=== PATIENT | male | born 1960 | race Two or more races ===

== ENCOUNTER → 2024-02-28 | Outpatient (CLI) | payer MEDICAID, SELFPAY ==
--- NOTE | 2024-02-28 13:30 | XR_ITS ---
Examination: IR fluoroscopically Port-A-Cath check Fluoroscopy AP left chest single view Exam date and time: February 28, 2024 1515 hours INDICATIONS: Nonfunctioning Port-A-Cath FINDINGS: Informed consent provided. Timeout performed. Attempted contrast injection 3 cc [id number] patient's Port-A-Cath The Port-A-Cath reservoir and the Port-A-Cath line are clotted No aspiration of blood IMPRESSION: The Port-A-Cath reservoir and the Port-A-Cath line are totally clotted Fluoroscopy 0.2 minute radiation dose 3.41 milligray 1 spot fluoroscopic chest film
== END | disposition home or self-care (01) ==
PROVIDERS: PCP Physician Assistant; Referring Provider Internal Medicine Hematology & Oncology; Visit Provider Internal Medicine Hematology & Oncology
DX: T82.514A Breakdown (mechanical) of infusion catheter, initial encounter (principal); C18.0 Malignant neoplasm of cecum
CPT/HCPCS: 36598; 77001; Q9967

== ENCOUNTER 2024-03-04 21:04 | Emergency (ER) | payer MEDICAID, SELFPAY ==
[2024-03-04 21:05] VITALS: BMI 23.3
--- NOTE | 2024-03-04 21:22 | PD.EDRME ---
Rapid Medical Screening Exam RME Arrival date/time: 03/04/24 21:04 63 year old male present to ED for c/o of elevated blood glucose today at [facility]. I have greeted and performed a focused initial assessment of this patient. A comprehensive ED assessment and evaluation of the patient, analysis of all test results, and completion of the medical decision making process will be conducted by additional ED providers. Chief Complaint: General Adult/Misc Complain Time Seen by Provider: 03/04/24 21:20
[2024-03-04 21:28] VITALS: BP 154/83; PULSE 109; RESP 16; TEMP 36.9; O2SAT 100
[2024-03-04 21:56] LABS: Collection Type, Urine Voided
[2024-03-04 22:12] LABS: Bilirubin,Urine Negative (Negative); Blood,Urine Negative (Negative); Clarity,Urine Clear (Clear/Hazy); Color,Urine Lt-Yellow (Lt Yel-Yel); Glucose, Urine 4+ (Negative); Ketones,Urine Negative (Negative); Leukocyte Esterase,Urine Negative (Negative); Nitrite,Urine Negative (Negative); Protein,Urine Negative (Neg - Trace); RBC,Urine 2 /hpf (0-3); Squamous Epithelial Cell,Urine 1 /hpf (0-5); Urobilinogen,Urine Negative mg/dL (0.0-1.0); WBC,Urine < 1 /hpf (0-5)
[2024-03-04 22:26] LABS: Beta Hydroxybutyrate 0.2 mmol/L (<0.6)
[2024-03-04 22:33] LABS: Basophils % (Auto) 1 % (0-2.5); Eosinophils # (Auto) 0.2 Thou/mm3 (0.0-0.5); Eosinophils % (Auto) 3 % (0-10); Hematocrit 27.5 % (41.0-53.0); Hemoglobin 9.5 g/dL (13.5-16.0); Immature Granulocytes % (Auto) 1 % (0-0); Immature Granulocytes Auto 0.04 Thou/mm3 (0.00-0.00); Lymphocytes # (Auto) 2.1 Thou/mm3 (1.0-4.8); Lymphocytes % (Auto) 32 % (10-50); Mean Corpuscular HGB Conc 34.5 g/dl (31.0-37.0); Mean Corpuscular Volume 90 fL (80-100); Monocytes # (Auto) 1.1 Thou/mm3 (0.0-0.8); Monocytes % (Auto) 18 % (0-12); Neutrophils # (Auto) 2.9 Thou/mm3 (1.8-7.7); Neutrophils % (Auto) 46 % (37-80); Nucleated Red Blood Cell % 0 /100 WBC (0); Platelet Count 376 Thou/mm3 (140-440); RDW Standard Deviation 45.2 fL (35.1-43.9); Red Blood Count 3.06 Miln/mm3 (4.50-5.90); White Blood Count 6.4 Thou/mm3 (3.8-10.6)
[2024-03-04 22:59] LABS: Alanine Aminotransferase 11 U/L (10-49); Albumin, Serum 4.2 gm/dL (3.4-4.8); Albumin/Globulin Ratio 1.6 (1.2-2.2); Alkaline Phosphatase 101 U/L (46-116); Anion Gap 7 (7-16); Aspartate Amino Transferase < 8 U/L (0-34); BUN/Creatinine Ratio 14 Ratio (12-20); Bilirubin,Total 0.4 mg/dL (0.3-1.2); Blood Urea Nitrogen 13 mg/dL (9-23); Calcium 9.9 mg/dL (8.3-10.6); Calcium (Corrected) 9.9 mg/dL (8.5-10.1); Carbon Dioxide 30.5 mMol/L (20.0-31.0); Chloride 97 mMol/L (98-107); Creatinine (Component) 0.9 mg/dL (0.6-1.3); Estimated Creatinine Clearance 75.8 mL/min (>60); Globulin 2.7 gm/dL (2.3-3.5); Glucose 339 mg/dL (74-106); Osmolality,Calculated 281 (275-295); Potassium 3.9 mMol/L (3.4-5.1); Sodium 134 mMol/L (136-145); Total Protein 6.9 gm/dL (5.7-8.2); eGFR > 60 See Note
[2024-03-04] MEDS: INSULIN HUM REGULAR 1 UNIT/0.01 ML (PER UNIT) 10 UNIT SC (23:43)
[2024-03-04 23:45] VITALS: BP 139/81; PULSE 91; RESP 16; TEMP 37.1; O2SAT 100
--- NOTE | 2024-03-05 01:15 | EDNOTE_ITS ---
ED General RME/HPI General Chief complaint: General Adult/Misc Complain Stated complaint: SENT FROM [facility] FOR HIGH BLOOD GLUCOSE Time Seen by Provider: 03/04/24 21:20 Arrival date/time: 03/04/24 21:04 RME / HPI RME / HPI narrative: 03/04/24 21:04 63 year old male present to ED for c/o of elevated blood glucose today at [facility]. I have greeted and performed a focused initial assessment of this patient. A comprehensive ED assessment and evaluation of the patient, analysis of all test results, and completion of the medical decision making process will be conducted by additional ED providers. This section includes all my notes and documentations, including HPI, PE, and ED course. Jose Guadalupe Salinas MD HPI: 64-year-old male here to be evaluated with high glucose level just prior to arrival, in the 400s. He admits to not being compliant with his diabetic medications. Otherwise, he feels well. No chest pain. No abdominal pain. No nausea or vomiting. No urinary symptoms. No other complaints. ROS: Gastrointestinal: negative except as documented in HPI. Genitourinary: negative except as documented in HPI. Musculoskeletal: negative except as documented in HPI. Skin: negative except as documented in HPI. Neurological: negative except as documented in HPI. Physical Exam: General: Alert and oriented. No acute distress. Eyes: Conjunctivae and lids clear. ENT: No nasal congestion. Neck: Supple. Heart: RRR. Lungs: No respiratory distress. Good air movement. No rhonchi, wheezing, rales. Abdomen: Soft and nontender. Normal bowel sounds. No distension. No rebound or guarding. Back: No CVA tenderness. Legs: No clubbing, cyanosis, edema. Skin: Warm and dry. Neuro: Alert and oriented X 3. Blood tests and urine tests are unremarkable, except Glu 339. At this point, diagnoses include hyperglycemia and DM due to noncompliance. Treatment here included regular insulin 10 units SC, glucose decreased. Recommended more outpatient care. Based on my best medical judgment, made decision no further evaluation or treatment indicated at this time. Patient understands and agrees to the discharge instructions customized and printed, see below. Discharge Instructions from Dr. Salinas printed for you: 1. After evaluation, your sugar level was very high. 2. We need to lower the sugar levels to prevent severe complications, which can include heart attacks and strokes and limb amputations. 3. Take Janumet twice a day as prescribed today, until cleared by a doctor in care of you. 4. See a private doctor on 03/06/2024 for recheck and further care. Ask to help you stay healthy, with good management of your diabetes, helping you to prevent future heart attacks and strokes, and with regular physical exam and health maintenance. 5. Seek immediate medical care with worsening or with any concerns. Jose Guadalupe Salinas MD Related Data Previous Rx's ?Medication ?Instructions ?Recorded ascorbic acid (vitamin C) 250 mg 500 mg (2 x 250 mg) PO BID #60 tabs 12/08/23 tablet (Vitamin C) docusate sodium 100 mg capsule 100 mg PO BID #40 caps 12/08/23 hydrocodone 5 mg-acetaminophen 325 1 tab PO Q6HR PRN pain (scale 12/08/23 mg tablet score 7-10) #20 tabs zinc sulfate 50 mg zinc (220 mg) 220 mg (4.4 x 50 mg zinc (220 mg)) 12/08/23 capsule PO QDAY #30 caps sitagliptin phos 100 mg-metformin 1 tab PO BID 60 days #60 tabs 03/05/24 ER 1,000 mg tablet,extend rel 24h mp (Janumet XR) Allergies Allergy/AdvReac Type Severity Reaction Status Date / Time No Known Allergies Allergy Verified 03/04/24 21:07 Course Quality Measures none Orders Category Date Time Status Glucose [Bedside Blood Glucose] NOW Care 03/05/24 00:28 Completed Beta Hydroxybutyrate Stat Lab 03/04/24 21:48 Completed CBC Stat Lab 03/04/24 21:48 Completed CMP [Comprehensive Metabolic Panel] Stat Lab 03/04/24 21:48 Completed UA [Urinalysis] Stat Lab 03/04/24 21:49 Completed Insulin Regular Med 03/04/24 23:35 Discontinued 10 unit SC X1 ONE Sodium Chloride 0.9% 1000 ml [Ns] 1,000 ml Med 03/04/24 22:58 Discontinued IV 999 mls/hr Vital Signs Vital signs: Vital Signs Temperature 98.5 F 03/04/24 21:28 Pulse Rate 109 H 03/04/24 21:28 Respiratory Rate 16 03/04/24 21:28 Blood Pressure 154/83 H 03/04/24 21:28 Pulse Oximetry (%) 100 03/04/24 21:28 Oxygen Delivery Method Room Air 03/04/24 21:28 [facility] Patient data External records reviewed:: [facility] previous records Clinical information provided by:: patient and family Social determinants that could affect healthcare access:: other (specify) (Noncompliance) Patient has the following chronic illnesses:: DM How is presenting disease/condition affected by chronic disease/condition?: e xacerbated by Evaluation data The following diagnostics were reviewed and interpreted by me:: lab results Lab and/or radiology exams considered but not ordered:: None Interpretation Summary: Hyperglycemia Medications Medications considered but not ordered:: None Medication administrations:: Medication Administration History Discontinued Medications Sodium Chloride (Ns) 1,000 mls @ 999 mls/hr IV .Q1H1M ONE Stop: 03/04/24 23:58 Last Admin: 03/04/24 23:45 Dose: Not Given Documented By: ANA Non-Admin Reason: Cancelled by Provider Insulin Human Regular (Insulin Hum Regular 1 Unit/0.01 Ml (Per Unit)) 10 unit SC X1 ONE Stop: 03/04/24 23:36 Last Admin: 03/04/24 23:43 Dose: 10 unit Documented By: ANA Co-signed By: FANY Insulin Consultations Consultation(s) initiated? (list below): No Diagnosis Differential Diagnosis ED Complaint MDM: Hyperglycemia, UTI, DKA, electrolyte abnormalities Most likely diagnosis given after review of the tests above:: Hyperglycemia Admission Indicated Admission indicated?: not indicated Explain why admission is indicated or not indicated:: Admission criteria not met Admission Request Was there a request for admission?: No Disposition Plan Disposition Plan: Discharge Discharge Attestation Discharge Attestation: The patient and all family members were given an opportunity to ask questions and understood the discharge instructions. Discharge instructions specifically effects, indications for sooner follow up or return to the emergency department, and the expected course of current diagnosis. Patient condition: Stable Medical Decision Making Differential Diagnosis Differential Diagnosis: Hyperglycemia, UTI, DKA, electrolyte abnormalities Lab Data 03/04/24 21:48 03/04/24 21:48 Labs: Lab Results 03/04/24 03/04/24 Range/Units 21:48 21:49 WBC 6.4 (3.8-10.6) Thou/mm3 RBC 3.06 L (4.50-5.90) Miln/mm3 Hgb 9.5 L (13.5-16.0) g/dL Hct 27.5 L (41.0-53.0) % MCV 90 (80-100) fL MCH 31.0 (25.0-35.0) pg MCHC 34.5 (31.0-37.0) g/dl RDW Std Deviation 45.2 H (35.1-43.9) fL Plt Count 376 (140-440) Thou/mm3 Neut % (Auto) 46 (37-80) % Lymph % (Auto) 32 (10-50) % [place] % (Auto) 18 H (0-12) % Eos % (Auto) 3 (0-10) % Baso % (Auto) 1 (0-2.5) % Neut # (Auto) 2.9 (1.8-7.7) Thou/mm3 Lymph # (Auto) 2.1 (1.0-4.8) Thou/mm3 [place] # (Auto) 1.1 H (0.0-0.8) Thou/mm3 Eos # (Auto) 0.2 (0.0-0.5) Thou/mm3 Baso # (Auto) 0.0 (0.0-0.2) Thou/mm3 Immature Gran # (Auto) 0.04 H (0.00-0.00) Thou/mm3 Absolute Nucleated RBC 0.00 (0.00-0.00) Thou/mm3 Immature Gran % 1 H (0-0) % Nucleated RBC % 0 (0) /100 WBC Sodium 134 L (136-145) mMol/L Potassium 3.9 (3.4-5.1) mMol/L Chloride 97 L (98-107) mMol/L Carbon Dioxide 30.5 (20.0-31.0) mMol/L Anion Gap 7 (7-16) BUN 13 (9-23) mg/dL Creatinine 0.9 (0.6-1.3) mg/dL Estim Creat Clear Calc 75.8 (>60) mL/min eGFR > 60 (60 - ) See Note BUN/Creatinine Ratio 14 (12-20) Ratio Glucose 339 H D (74-106) mg/dL Calculated Osmolality 281 (275-295) Calcium 9.9 (8.3-10.6) mg/dL Corrected Calcium 9.9 (8.5-10.1) mg/dL Total Bilirubin 0.4 (0.3-1.2) mg/dL AST < 8 (0-34) U/L ALT 11 (10-49) U/L Alkaline Phosphatase 101 (46-116) U/L Total Protein 6.9 (5.7-8.2) gm/dL Albumin 4.2 (3.4-4.8) gm/dL Globulin 2.7 (2.3-3.5) gm/dL Albumin/Globulin Ratio 1.6 (1.2-2.2) Beta-Hydroxybutyrate/Acetoacetate 0.2 (<0.6) mmol/L Ur Collection Type Voided Urine Color Lt-Yellow (Lt Yel-Yel) Urine Clarity Clear (Clear/Hazy) Urine pH 6.0 (5.0-7.0) Ur Specific [place] 1.030 (1.001-1.035) Urine Protein Negative (Neg - Trace) Urine Glucose (UA) 4+ A (Negative) Urine Ketones Negative (Negative) Urine Blood Negative (Negative) Urine Nitrite Negative (Negative) Urine Bilirubin Negative (Negative) Urine Urobilinogen (Auto) Negative (0.0-1.0) mg/dL Ur Leukocyte Esterase Negative (Negative) Urine RBC 2 (0-3) /hpf Urine WBC < 1 (0-5) /hpf Ur Squamous Epith Cells 1 (0-5) /hpf Urine Bacteria None (None) Discharge Plan Plan Patient Disposition: HOME (Self Care) Prescriptions/Referrals Prescriptions/Med Rec: New Janumet XR 100-1,000 mg tablet, ER multiphase 24 hr 1 tab PO BID 60 Days Qty: 60 1RF No Action hydrocodone-acetaminophen 5-325 mg Tablet 1 tab PO Q6HR MDD 4 PRN (Reason: pain (scale score 7-10)) Qty: 20 0RF ascorbic acid (vitamin C) [Vitamin C] 250 mg Tablet 500 mg PO BID Qty: 60 0RF docusate sodium 100 mg Capsule 100 mg PO BID Qty: 40 0RF zinc sulfate 50 mg zinc (220 mg) Capsule 220 mg PO QDAY Qty: 30 0RF Referrals: Betsy Hodges PA-C [Primary Care Provider] - In 1 week Problem List Clinical Impression: Hyperglycemia due to diabetes mellitus Patient/Caregiver Discharge Instructions Discharge Activity: activity as tolerated Education Materials: ED Diabetes- Overview, ED Diet: Diabetes Additional Instructions: Discharge Instructions from Dr. Salinas printed for you: 1. After evaluation, your sugar level was very high. 2. We need to lower the sugar levels to prevent severe complications, which can include heart attacks and strokes and limb amputations. 3. Take Janumet twice a day as prescribed today, until cleared by a doctor in care of you. 4. See a private doctor on 03/06/2024 for recheck and further care. Ask to help you stay healthy, with good management of your diabetes, helping you to prevent future heart attacks and strokes, and with regular physical exam and health maintenance. 5. Seek immediate medical care with worsening or with any concerns. Print Language: Bulgarian Stand Alone Forms: Brittany Award Info., Patient Portal Info Letter
[2024-03-05 01:19] VITALS: BP 125/76; PULSE 81; RESP 16; TEMP 36.9; O2SAT 99
== END 2024-03-05 01:20 | disposition home or self-care (01) ==
PROVIDERS: Physician Assistant; Emergency Provider Emergency Medicine; PCP Physician Assistant
DX: E11.65 Type 2 diabetes mellitus with hyperglycemia (principal); Z91.148 Patient's other noncompliance with medication regimen for other reason
CPT/HCPCS: 36415; 80053; 81001; 82010; 85025; 96372; 99283; J1815

== ENCOUNTER 2024-03-05 10:38 | Outpatient (RCR) | payer MEDICAID, SELFPAY ==
[2024-02-09 12:15] LABS: Basophils % (Auto) 0 % (0-2.5); Eosinophils # (Auto) 0.2 Thou/mm3 (0.0-0.5); Eosinophils % (Auto) 3 % (0-10); Hematocrit 26.1 % (41.0-53.0); Immature Granulocytes % (Auto) 0 % (0-0); Immature Granulocytes Auto 0.02 Thou/mm3 (0.00-0.00); Lymphocytes # (Auto) 1.2 Thou/mm3 (1.0-4.8); Lymphocytes % (Auto) 21 % (10-50); Mean Corpuscular HGB Conc 34.5 g/dl (31.0-37.0); Mean Corpuscular Hemoglobin 31.4 pg (25.0-35.0); Mean Corpuscular Volume 91 fL (80-100); Monocytes # (Auto) 0.5 Thou/mm3 (0.0-0.8); Monocytes % (Auto) 9 % (0-12); Neutrophils # (Auto) 3.6 Thou/mm3 (1.8-7.7); Neutrophils % (Auto) 66 % (37-80); Nucleated Red Blood Cell % 0 /100 WBC (0); Platelet Count 236 Thou/mm3 (140-440); RDW Standard Deviation 47.9 fL (35.1-43.9); Red Blood Count 2.87 Miln/mm3 (4.50-5.90); White Blood Count 5.5 Thou/mm3 (3.8-10.6)
[2024-02-09 12:27] LABS: Folate 17.48 ng/mL (>5.38); Vitamin B12 395 pg/mL (211-911)
[2024-02-09 12:33] LABS: Ferritin 139 ng/mL (10.5-307.3); Iron 48 mcg/dL (65-175); Percent Iron Saturation 17 % (20-55); Total Iron Binding Capacity 277 mcg/dL (250-425); Unsaturated Iron Binding 229 (225-295)
[2024-02-09 12:39] LABS: Alanine Aminotransferase 7 U/L (10-49); Albumin, Serum 4.3 gm/dL (3.4-4.8); Albumin/Globulin Ratio 1.4 (1.2-2.2); Alkaline Phosphatase 81 U/L (46-116); Anion Gap 5 (7-16); Aspartate Amino Transferase 13 U/L (0-34); BUN/Creatinine Ratio 13 Ratio (12-20); Bilirubin,Total 0.6 mg/dL (0.3-1.2); Blood Urea Nitrogen 9 mg/dL (9-23); Calcium 9.8 mg/dL (8.3-10.6); Calcium (Corrected) 9.8 mg/dL (8.5-10.1); Chloride 104 mMol/L (98-107); Creatinine (Component) 0.7 mg/dL (0.6-1.3); Glucose 123 mg/dL (74-106); Osmolality,Calculated 271 (275-295); Potassium 3.7 mMol/L (3.4-5.1); Sodium 136 mMol/L (136-145); Total Protein 7.3 gm/dL (5.7-8.2); eGFR > 60 See Note
[2024-02-23 09:35] LABS: Basophils % (Auto) 0 % (0-2.5); Eosinophils # (Auto) 0.1 Thou/mm3 (0.0-0.5); Eosinophils % (Auto) 2 % (0-10); Hematocrit 25.6 % (41.0-53.0); Hemoglobin 8.9 g/dL (13.5-16.0); Immature Granulocytes % (Auto) 0 % (0-0); Immature Granulocytes Auto 0.01 Thou/mm3 (0.00-0.00); Lymphocytes # (Auto) 1.3 Thou/mm3 (1.0-4.8); Lymphocytes % (Auto) 22 % (10-50); Mean Corpuscular HGB Conc 34.8 g/dl (31.0-37.0); Mean Corpuscular Hemoglobin 31.1 pg (25.0-35.0); Mean Corpuscular Volume 90 fL (80-100); Monocytes # (Auto) 0.5 Thou/mm3 (0.0-0.8); Monocytes % (Auto) 8 % (0-12); Neutrophils # (Auto) 3.8 Thou/mm3 (1.8-7.7); Neutrophils % (Auto) 67 % (37-80); Nucleated Red Blood Cell % 0 /100 WBC (0); Platelet Count 301 Thou/mm3 (140-440); RDW Standard Deviation 43.4 fL (35.1-43.9); Red Blood Count 2.86 Miln/mm3 (4.50-5.90); White Blood Count 5.7 Thou/mm3 (3.8-10.6)
[2024-02-23 09:53] LABS: Alanine Aminotransferase 12 U/L (10-49); Albumin, Serum 4.4 gm/dL (3.4-4.8); Albumin/Globulin Ratio 1.5 (1.2-2.2); Alkaline Phosphatase 84 U/L (46-116); Anion Gap 3 (7-16); Aspartate Amino Transferase 13 U/L (0-34); BUN/Creatinine Ratio 10 Ratio (12-20); Bilirubin,Total 0.4 mg/dL (0.3-1.2); Blood Urea Nitrogen 8 mg/dL (9-23); Calcium 9.8 mg/dL (8.3-10.6); Calcium (Corrected) 9.8 mg/dL (8.5-10.1); Carbon Dioxide 29.9 mMol/L (20.0-31.0); Chloride 100 mMol/L (98-107); Creatinine (Component) 0.8 mg/dL (0.6-1.3); Glucose 183 mg/dL (74-106); Osmolality,Calculated 269 (275-295); Potassium 4.2 mMol/L (3.4-5.1); Sodium 133 mMol/L (136-145); Total Protein 7.4 gm/dL (5.7-8.2); eGFR > 60 See Note
[2024-03-04 16:13] LABS: Basophils % (Auto) 1 % (0-2.5); Eosinophils # (Auto) 0.2 Thou/mm3 (0.0-0.5); Eosinophils % (Auto) 3 % (0-10); Hematocrit 27.1 % (41.0-53.0); Hemoglobin 9.5 g/dL (13.5-16.0); Immature Granulocytes % (Auto) 1 % (0-0); Immature Granulocytes Auto 0.06 Thou/mm3 (0.00-0.00); Lymphocytes # (Auto) 1.7 Thou/mm3 (1.0-4.8); Lymphocytes % (Auto) 28 % (10-50); Mean Corpuscular HGB Conc 35.1 g/dl (31.0-37.0); Mean Corpuscular Hemoglobin 31.4 pg (25.0-35.0); Mean Corpuscular Volume 89 fL (80-100); Monocytes % (Auto) 16 % (0-12); Neutrophils # (Auto) 3.1 Thou/mm3 (1.8-7.7); Neutrophils % (Auto) 51 % (37-80); Nucleated Red Blood Cell % 0 /100 WBC (0); Platelet Count 378 Thou/mm3 (140-440); RDW Standard Deviation 44.7 fL (35.1-43.9); Red Blood Count 3.03 Miln/mm3 (4.50-5.90)
[2024-03-04 16:37] LABS: Carcinoembryonic Antigen 30.2 ng/mL (0.0-5.0)
[2024-03-04 16:50] LABS: Alanine Aminotransferase 10 U/L (10-49); Albumin, Serum 4.2 gm/dL (3.4-4.8); Albumin/Globulin Ratio 1.4 (1.2-2.2); Alkaline Phosphatase 100 U/L (46-116); Anion Gap 7 (7-16); Aspartate Amino Transferase 10 U/L (0-34); BUN/Creatinine Ratio 10 Ratio (12-20); Bilirubin,Total 0.3 mg/dL (0.3-1.2); Blood Urea Nitrogen 10 mg/dL (9-23); Calcium 9.5 mg/dL (8.3-10.6); Calcium (Corrected) 9.5 mg/dL (8.5-10.1); Carbon Dioxide 28.7 mMol/L (20.0-31.0); Chloride 94 mMol/L (98-107); Osmolality,Calculated 281 (275-295); Potassium 3.7 mMol/L (3.4-5.1); Sodium 130 mMol/L (136-145); Total Protein 7.2 gm/dL (5.7-8.2); eGFR > 60 See Note
[2024-03-04 17:40] LABS: Glucose 486 mg/dL (74-106)
== END 2024-03-09 23:59 | disposition home or self-care (01) ==
LOC: SCTC 10:38
PROVIDERS: PCP Physician Assistant; Referring Provider Physician Assistant; Visit Provider Internal Medicine Hematology & Oncology
DX: Z51.11 Encounter for antineoplastic chemotherapy (principal); C18.0 Malignant neoplasm of cecum; E11.9 Type 2 diabetes mellitus without complications; Z90.49 Acquired absence of other specified parts of digestive tract
CPT/HCPCS: 36591; 80053; 82378; 82607; 82728; 82746; 83540; 83550; 85025; 96365; 96366; 96367; 96368; 96374; 96411; 96413; 96415; 96416; 99213; 99424; 99425; A4216; J0640; J1100; J1453; J1642; J2405; J2997; J3490; J9190; J9263; G0463

== ENCOUNTER → 2024-04-04 | Day surgery (SDC) | payer MEDICAID, SELFPAY ==
[2024-03-29 09:08] VITALS: BMI 22.8
[2024-03-29 10:39] LABS: Basophils % (Auto) 0 % (0-2.5); Eosinophils # (Auto) 0.2 Thou/mm3 (0.0-0.5); Eosinophils % (Auto) 3 % (0-10); Hematocrit 28.7 % (41.0-53.0); Hemoglobin 9.6 g/dL (13.5-16.0); Immature Granulocytes % (Auto) 0 % (0-0); Immature Granulocytes Auto 0.02 Thou/mm3 (0.00-0.00); Lymphocytes # (Auto) 1.5 Thou/mm3 (1.0-4.8); Lymphocytes % (Auto) 21 % (10-50); Mean Corpuscular HGB Conc 33.4 g/dl (31.0-37.0); Mean Corpuscular Hemoglobin 29.8 pg (25.0-35.0); Mean Corpuscular Volume 89 fL (80-100); Monocytes # (Auto) 0.7 Thou/mm3 (0.0-0.8); Monocytes % (Auto) 9 % (0-12); Neutrophils # (Auto) 4.9 Thou/mm3 (1.8-7.7); Neutrophils % (Auto) 67 % (37-80); Nucleated Red Blood Cell % 0 /100 WBC (0); Platelet Count 405 Thou/mm3 (140-440); RDW Standard Deviation 42.1 fL (35.1-43.9); Red Blood Count 3.22 Miln/mm3 (4.50-5.90); White Blood Count 7.4 Thou/mm3 (3.8-10.6)
[2024-03-29 10:57] LABS: Alanine Aminotransferase 8 U/L (10-49); Albumin, Serum 4.7 gm/dL (3.4-4.8); Albumin/Globulin Ratio 1.6 (1.2-2.2); Alkaline Phosphatase 72 U/L (46-116); Anion Gap 7 (7-16); Aspartate Amino Transferase 10 U/L (0-34); BUN/Creatinine Ratio 13 Ratio (12-20); Bilirubin,Total 0.4 mg/dL (0.3-1.2); Blood Urea Nitrogen 12 mg/dL (9-23); Calcium 9.9 mg/dL (8.3-10.6); Calcium (Corrected) 9.9 mg/dL (8.5-10.1); Carbon Dioxide 26.7 mMol/L (20.0-31.0); Chloride 100 mMol/L (98-107); Creatinine (Component) 0.9 mg/dL (0.6-1.3); Estimated Creatinine Clearance 74.8 mL/min (>60); Glucose 113 mg/dL (74-106); Osmolality,Calculated 268 (275-295); Potassium 4.4 mMol/L (3.4-5.1); Sodium 134 mMol/L (136-145); Total Protein 7.7 gm/dL (5.7-8.2); eGFR > 60 See Note
[2024-04-04] VITALS (8 sets, daily range): BP systolic 121–139; BP diastolic 76–87; PULSE 80–91; RESP 12–20; TEMP 36.3–36.9; O2SAT 100
[2024-04-04] MEDS: RINGERS LACTATED 1000 ML 1,000 ML 20 ML IV (12:21)
--- NOTE | 2024-04-04 14:24 | SUR.PHASEII ---
1424 Patient arrived to recovery resting comfortably in [facility], drowsy and talking with staff, on oxygen 6L via oxy mask, breathing unlabored, vital signs stable, denies pain, dressing intact to left upper chest; dermabond, fluffs, medipore tape, no bleeding noted, lung sounds clear upon auscultation, bilateral radial pulses present when palpated, report received from Nisreen WADE and Dr. Ortiz
--- NOTE | 2024-04-04 14:24 | PD.SUROPNT ---
Date of Procedure 04/04/24 Pre Op Diagnosis Malfunctioning Port-A-Cath Post Op Diagnosis Malfunctioning Port-A-Cath Procedure Removal of Port-A-Cath Findings No external evidence of infection. Multiple attempts were made from left subclavian vein, left internal jugular vein and right right subclavian vein, veins were accessed easily however I was unable to advance the guidewire. Procedure Description Patient brought into the operating room in supine position. After administration of monitored anesthesia care, patient's left upper chest was prepped and draped in standard surgical manner. The area overlying the Port-A-Cath was anesthetized with half percent Marcaine. An incision was made over her previous scar. Dissection was carried subcutaneous tissue. The capsule surrounding the port was excised circumferentially with electrocautery. The port was disconnected from the catheter and I attempted to pass a guidewire through the catheter, however I was unable to advance the guidewire. The catheter was removed. I accessed the left subclavian vein with an Angiocath. Again I was unable to advance the guidewire beyond the sternal notch. I then elected to access the left internal jugular vein. After administration of local anesthesia the left internal jugular vein was accessed with a needle easily. I was unable to advance the guidewire beyond the area of sternal notch. I elected to place the catheter on the right side. The right subclavian vein was accessed. Again I was unable to advance a guidewire beyond the sternal notch. At this point I elected to abort the procedure and just remove the Port-A-Cath from his left side. A pursestring suture was placed around the insertion site of the catheter and the catheter along with the port were removed. There were no backbleeding noted. Hemostasis was adequate and satisfactory. Soft tissue reapproximated with interrupted suture using 2-0 Vicryl and the incision was closed 4-0 Monocryl subcuticular fashion. Instruments, needles and sponge counts were reported to be correct ?2. Patient tolerated the procedure well. She was breathing spontaneously and without difficulty and was transferred to postanesthesia care in stable condition. Anesthesia MAC and local Pathology / specimen Other (Port-A-Cath for gross inspection only) Estimated Blood Loss 5 Condition Stable Disposition PACU Surgeon Jose Boss MD Surgical Staff Operation Date: 04/04/24 14:00 Case Staff Anesthesiologist: Jak Ortiz plate glass grinder: Iris Moctezuma
--- NOTE | 2024-04-04 15:43 | SUR.PHASEII ---
1543 Patient meets discharge criteria from recovery, awake and alert, breathing unlabored, vital signs stable, denies pain, dressing intact; no bleeding noted, patient provided an arm sling for support, patient ate two jello's and drinking water/apple juice, patient assisted with dressing into his clothing by his son, patient signed limited proficiency statement for his son to spanish medical interpreter [place] to him, discharge instructions given to patient and patients son, son signed discharge instructions. Patient given all his belongings prior to discharge, transported via wheelchair and left in a private vehicle.
== END | disposition home or self-care (01) ==
PROVIDERS: Anesthesiology; PCP Physician Assistant; Referring Provider Surgery; Visit Provider Surgery
PROC: (CPT 36590; principal; 2024-04-04 13:45)
DX: T82.599A Other mechanical complication of unspecified cardiac and vascular devices and implants, initial encounter (principal)
CPT/HCPCS: 36590; 36415; 80053; 85025; A4217; A4649; C1769; J0690; J1644; J2250; J2704; J3490; J7050; J7120

== ENCOUNTER 2024-04-24 07:14 | Outpatient (CLI) | payer MEDICAID, SELFPAY ==
[2024-04-23 14:36] VITALS: BMI 22.6
[2024-04-24] VITALS (15 sets, daily range): BP systolic 122–155; BP diastolic 75–95; PULSE 80–98; RESP 16–21; TEMP 36.6–36.7; O2SAT 99–100
[2024-04-24 08:13] LABS: Basophils % (Auto) 0 % (0-2.5); Eosinophils # (Auto) 0.3 Thou/mm3 (0.0-0.5); Eosinophils % (Auto) 4 % (0-10); Hematocrit 27.4 % (41.0-53.0); Immature Granulocytes % (Auto) 0 % (0-0); Immature Granulocytes Auto 0.01 Thou/mm3 (0.00-0.00); Lymphocytes # (Auto) 1.5 Thou/mm3 (1.0-4.8); Lymphocytes % (Auto) 21 % (10-50); Mean Corpuscular HGB Conc 32.8 g/dl (31.0-37.0); Mean Corpuscular Hemoglobin 29.4 pg (25.0-35.0); Mean Corpuscular Volume 90 fL (80-100); Monocytes # (Auto) 0.7 Thou/mm3 (0.0-0.8); Monocytes % (Auto) 10 % (0-12); Neutrophils # (Auto) 4.6 Thou/mm3 (1.8-7.7); Neutrophils % (Auto) 64 % (37-80); Nucleated Red Blood Cell % 0 /100 WBC (0); Platelet Count 433 Thou/mm3 (140-440); RDW Standard Deviation 42.5 fL (35.1-43.9); Red Blood Count 3.06 Miln/mm3 (4.50-5.90); White Blood Count 7.2 Thou/mm3 (3.8-10.6)
[2024-04-24 08:21] LABS: Partial Thromboplastin Time 28.5 Seconds (22.0-36.0); Prothrombin Time 11.2 Seconds (9.0-12.2)
--- NOTE | 2024-04-24 08:30 | XR_ITS ---
Examination: IR venous implantation Port-A-Cath Ultrasound-guided needle placement right internal jugular vein. Fluoroscopy AP Chest, portable single view Exam date and time: April 24, 2024 0936 hours INDICATIONS: Diagnosis malignant neoplasm cecum, need for long-term intravenous chemotherapy. Informed consent provided Technique: A timeout was completed, verifying correct patient, procedure, site, positioning, and special equipment if applicable The patient was placed in a dependent position appropriate for central line placement based on the vein to be cannulated. The patient's right neck was prepped and draped in sterile fashion. Maximum Sterile Barrier Technique used including cap, mask, sterile gown, sterile gloves, and sterile full body drape. If ultrasound technique used: sterile gel and sterile probe covers. Hand Hygiene performed using proper scrub, soap and water, or alcohol-based hand rub. Site right portable apparatus utilized to confirm patency of the right internal jugular vein Utilizing ultrasonographic guidance successful 21-gauge needle puncture into the right internal jugular vein Ultrasound images were recorded and stored. Successful micropuncture with a 21-gauge needle was performed. Utilizing blunt dissection pocket formed in the upper right chest subcutaneous for placement of Port-A-Cath reservoir Port-A-Cath reservoir connected to a 21 cm 8 Chinese Port-A-Cath line in place to a venous sheath into the superior vena cava in proper position under fluoroscopic guidance The attending radiologist was present for the entire procedure Estimated blood loss2 cc. Findings: Under fluoroscopy, the tip of the Port-A-Cath is in good position in the vena cava. Portable chest x-ray, post Port-A-Cath placement, as ordered. Impression: Successful ultrasound-guided needle placement right internal jugular vein. Successful IR venous implantation Port-A-Cath Fluoroscopy 0.1 minute radiation dose 1.23 milligray 1 portable chest film AP. AP portable chest completion procedure demonstrates satisfactory position Port-A-Cath tip SVC. May use Port-A-Cath
[2024-04-24] MEDS: SODIUM CHLORIDE 0.9% 100 ML 20 ML IV (10:20)
[2024-04-24] MEDS: ceFAZolin 1 GM in SODIUM CHLORIDE 0.9% 100 ML IV (10:20)
[2024-04-24] MEDS: fentaNYL CIT INJ 50 mCg/ML AMP 2ML 75 MCG IVP (10:52)
[2024-04-24] MEDS: ceFAZolin INJ 1 GM VIAL STFIELD (10:54)
[2024-04-24] MEDS: LIDOCAINE 1% W/EPI 1:100K 20 ML VIAL 4 ML INFL (10:54)
[2024-04-24] MEDS: LIDOCAINE INJ PF 1% 30 ML VIAL 7 ML INFL (10:54)
[2024-04-24] MEDS: HEPARIN SOD LOCK SYR 100 UNIT/ML 500 UNIT STFIELD (10:54)
--- NOTE | 2024-04-24 12:01 | PC.NURSE ---
1128 patient is awake, alert, breathing unlabored, s/p port placement to right IJ, dressing dry with no bleeding, patient transferred to [facility] 3 for 1hr recovery. 1158 patient is awake, alert, breathing unlabored, no bleeding noted to right upper chest dressing, report given to Arturo WADE, patient eating lunch tray at this time, no nausea or vomiting.
== END 2024-04-24 12:35 | disposition home or self-care (01) ==
PROVIDERS: Radiology Diagnostic Radiology; PCP Physician Assistant; Referring Provider Internal Medicine Hematology & Oncology; Visit Provider Internal Medicine Hematology & Oncology
DX: C18.0 Malignant neoplasm of cecum (principal); Z01.812 Encounter for preprocedural laboratory examination
CPT/HCPCS: 36558; 36415; 76937; 77001; 85025; 85610; 85730; C1769; C1788; C1894; J0690; J1642; J3010; J3490; J7050

== ENCOUNTER → 2024-05-06 | Outpatient (CLI) | payer MEDICAID, SELFPAY ==
--- NOTE | 2024-05-06 13:47 | XR_ITS ---
Examination: IR staple removal Port-A-Cath incision site Exam date and time: May 06, 2024 1347 hours INDICATIONS: Port-A-Cath insertion April 24, 2024, patient returns to remove staple closure devices TECHNIQUE AND FINDINGS: Informed consent provided. Timeout performed. Skin prepped over the Port-A-Cath incision site Hand hygiene sterile drape Successful removal of the hayde at the Port-A-Cath incision site Estimated blood loss 0 cc IMPRESSION: Successful IR staple removal at the Port-A-Cath incision site
--- NOTE | 2024-05-06 14:08 | PC.NURSE ---
patient arrived for hayde removal. eight hayde removed. patient tolerated well. education given to patient. He expressed verbal understanding.
== END | disposition home or self-care (01) ==
LOC: SDIM 13:34
PROVIDERS: PCP Internal Medicine Hematology & Oncology; Referring Provider Radiology Diagnostic Radiology; Visit Provider Radiology Diagnostic Radiology
DX: Z48.02 Encounter for removal of sutures (principal)

== ENCOUNTER 2024-05-10 09:00 | Outpatient (RCR) | payer MEDICAID, SELFPAY ==
[2024-04-29 09:13] LABS: Basophils % (Auto) 1 % (0-2.5); Eosinophils # (Auto) 0.2 Thou/mm3 (0.0-0.5); Eosinophils % (Auto) 4 % (0-10); Immature Granulocytes % (Auto) 0 % (0-0); Immature Granulocytes Auto 0.01 Thou/mm3 (0.00-0.00); Lymphocytes # (Auto) 1.1 Thou/mm3 (1.0-4.8); Lymphocytes % (Auto) 18 % (10-50); Mean Corpuscular Hemoglobin 29.6 pg (25.0-35.0); Mean Corpuscular Volume 87 fL (80-100); Monocytes # (Auto) 0.6 Thou/mm3 (0.0-0.8); Monocytes % (Auto) 9 % (0-12); Neutrophils # (Auto) 4.3 Thou/mm3 (1.8-7.7); Neutrophils % (Auto) 69 % (37-80); Nucleated Red Blood Cell % 0 /100 WBC (0); Platelet Count 322 Thou/mm3 (140-440); RDW Standard Deviation 41.3 fL (35.1-43.9); Red Blood Count 2.87 Miln/mm3 (4.50-5.90); White Blood Count 6.3 Thou/mm3 (3.8-10.6)
[2024-04-29 09:16] LABS: Hemoglobin 8.5 g/dL (13.5-16.0)
[2024-04-29 09:19] LABS: Alanine Aminotransferase < 7 U/L (10-49); Albumin, Serum 4.3 gm/dL (3.4-4.8); Albumin/Globulin Ratio 1.3 (1.2-2.2); Alkaline Phosphatase 74 U/L (46-116); Anion Gap 9 (7-16); Aspartate Amino Transferase 16 U/L (0-34); BUN/Creatinine Ratio 19 Ratio (12-20); Bilirubin,Total 0.5 mg/dL (0.3-1.2); Blood Urea Nitrogen 13 mg/dL (9-23); Calcium 9.8 mg/dL (8.3-10.6); Calcium (Corrected) 9.8 mg/dL (8.5-10.1); Carbon Dioxide 24.2 mMol/L (20.0-31.0); Chloride 101 mMol/L (98-107); Creatinine (Component) 0.7 mg/dL (0.6-1.3); Globulin 3.2 gm/dL (2.3-3.5); Glucose 115 mg/dL (74-106); Osmolality,Calculated 269 (275-295); Sodium 134 mMol/L (136-145); Total Protein 7.5 gm/dL (5.7-8.2); eGFR > 60 See Note
[2024-04-29 09:23] LABS: Carcinoembryonic Antigen 45.8 ng/mL (0.0-5.0)
--- NOTE | 2024-05-07 14:50 | CTCFLWUP_ITS ---
Patient: ROBBY HERZOG : 1960 Page 2 of 2 FOLLOW UP NOTE DATE OF SERVICE: 05/07/2024 NAME: ROBBY HERZOG ACCOUNT: [id number] : 1960 AGE: 64 INTERVAL HISTORY: Patient is doing well. ONCOLOGY HISTORY: DIAGNOSIS: Malignant neoplasm of cecum [ICD10] C18.0 DATE OF DIAGNOSIS: 12/03/2023 STAGE/TNM: Stage III colon cancer TREATMENT HISTORY: Care?Plan Start?Date Cycle Day Intent mFOLFOX-6?-?5FU?400?+?2400?CIV,?LVR?400,OXALIplat?85 02/12/2024 1 14 Curative?(adjuvant) HISTORY OF PRESENT ILLNESS: Patient is 64-year-old male. Patient is here for follow-up. Patient is on adjuvant chemotherapy for his history of stage III colon cancer Patient had his port catheter occluded and is being planned for replacement. Patient also have uncontrolled glucose and was seen in emergency room yesterday. He was not following up with his diabetes medications or PCP. 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 Tumor site cecum and distal ileum G3 greatest dimension of the tumor 9 cm additional dimension 4 x 3 cm. Tumor invades through muscularis propria area into pericolorectal tissue replaces much of the bowel wall of cecum and ileum lymphovascular invasion perineural invasion both present. Proximal margin involved by invasive carcinoma and mucosa and submucosa failure distal involved by invasive carcinoma and mucosa of ascendin of the 18 lymph nodes positive for carcinoma. 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 Edarbi - 40 mg 1 tab Twice a Day 2. metFORMIN - 1,000 mg 1 tab Twice a Day 3. OraMagicRx - 15 mL 3 times daily 4. Tradjenta - 5 mg 1 tab Daily 5. zinc - 50 mg 1 tab Daily Medications Last Reconciled by Joanne Funk MA on 05/07/2024 ALLERGIES: No Known Drug Allergies REVIEW OF SYSTEMS: A complete 14-point review of systems was performed and is negative except as noted in interval history. PHYSICAL EXAMINATION: VITAL SIGNS: PAIN: 0 - No pain ECOG Performance Status: 0 - Asymptomatic and fully active GENERAL APPEARANCE: Appears well, in no apparent distress, appropriately interactive. HEENT: Normocephalic, no temporal wasting, normal conjunctiva, no scleral icterus, normal hearing, lips without lesions, neck normal range of motion. CARDIOVASCULAR: Not assessed. PULMONARY: Normal respiratory effort, no respiratory distress or use of accessory muscles, speaking in full sentences, no tachypnea. EXTREMITIES: No pedal edema or cyanosis. SKIN: Normal skin appearance. NEUROLOGIC: Alert and oriented x4. PSHYCHIATRIC: Appropriate affect, mood normal, behavior normal, intact thought and speech. LABORATORY DATA: I have personally reviewed and interpreted each of the patient?s relevant lab tests, abnormal findings are below: Date 04/29/24 ??GLUCOSE,RANDOM?(mg/dL) 115?H ??BLOOD?UREA?NITROGEN?(mg/dL) 13 ??CREATININE?(mg/dL) 0.70 ??SODIUM?(mmol/L) 134?L ??POTASSIUM?(mmol/L) 4.0 ??CHLORIDE?(mmol/L) 101 ??CrCl?(CandG)?(ml/min) 98.49 ??AST/SGOT?(Unit/L) 16 ??ALT/SGPT?(Unit/L) <?7?L ??ALKALINE?PHOSPHATASE?(Unit/L) 74 ??BILIRUBIN,?TOTAL?(mg/dL) 0.5 ??PROTEIN?TOTAL?(gm/dl) 7.5 ??ALBUMIN,?SERUM?(gm/dl) 4.3 ??GLOBULIN?(gm/dl) 3.2 ??ALBUMIN/GLOBULIN?RATIO 1.3 ??CALCIUM,?SERUM?(mg/dL) 9.8 ??CALCIUM?SERUM?(CORRECTED)?(mg/dL) 9.8 ASSESSMENT/PLAN: #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 Gera Mena to proceed with cycle 3 Compliance of to treatment reiterated CEA is upward trending Will see in 4 weeks if patient's CEA goes down Will do PET CT scan at that time if CEA continues to go up Will place nutrition consult #2 uncontrolled diabetes Consult for diet and exercise and to decrease total carb intake to have better control of glucose continue to follow with the PCP CBC CMP CEA Proceed with chemotherapy Nutrition consult RETURN TO CLINIC: 4 weeks BILLING AND COMPLIANCE: I reviewed external records from providers outside my specialty as summarized above. I spent a total of 50 minutes on this patient?s care on the day of their visit excluding time spent related to any billed procedures. This time includes time spent with the patient as well as time spent documenting in the medical record, reviewing patients records and tests, obtaining history, placing orders, communicating with other healthcare professionals, counseling the patient, family or caregiver, and/or care coordination for the diagnoses above. Electronically Signed by: Eliud Felipe MD T: 2:48 PM CC: PCP: Betsy Hodges Referring: Betsy Hodges This document was completed utilizing speech recognition software. Grammatical errors, random word insertions, pronoun errors, and incomplete sentences are an occasional consequence of this system due to software limitations, ambient noise, and hardware issues. Any formal questions or concerns about the content, text or information contained within the body of this dictation should be directly addressed to the provider for clarification.
[2024-05-10 11:08] LABS: Basophils % (Auto) 0 % (0-2.5); Eosinophils # (Auto) 0.1 Thou/mm3 (0.0-0.5); Eosinophils % (Auto) 3 % (0-10); Immature Granulocytes % (Auto) 0 % (0-0); Immature Granulocytes Auto 0.01 Thou/mm3 (0.00-0.00); Lymphocytes % (Auto) 22 % (10-50); Mean Corpuscular HGB Conc 32.7 g/dl (31.0-37.0); Mean Corpuscular Hemoglobin 28.9 pg (25.0-35.0); Mean Corpuscular Volume 88 fL (80-100); Monocytes # (Auto) 0.3 Thou/mm3 (0.0-0.8); Monocytes % (Auto) 7 % (0-12); Neutrophils % (Auto) 68 % (37-80); Nucleated Red Blood Cell % 0 /100 WBC (0); Platelet Count 285 Thou/mm3 (140-440); RDW Standard Deviation 41.6 fL (35.1-43.9); Red Blood Count 2.49 Miln/mm3 (4.50-5.90); White Blood Count 4.5 Thou/mm3 (3.8-10.6)
[2024-05-10 11:12] LABS: Hemoglobin 7.2 g/dL (13.5-16.0)
[2024-05-10 11:45] LABS: Alanine Aminotransferase 9 U/L (10-49); Albumin/Globulin Ratio 1.4 (1.2-2.2); Alkaline Phosphatase 69 U/L (46-116); Anion Gap 7 (7-16); Aspartate Amino Transferase 16 U/L (0-34); BUN/Creatinine Ratio 17 Ratio (12-20); Bilirubin,Total 0.4 mg/dL (0.3-1.2); Blood Urea Nitrogen 10 mg/dL (9-23); Calcium 9.1 mg/dL (8.3-10.6); Calcium (Corrected) 9.1 mg/dL (8.5-10.1); Carbon Dioxide 25.7 mMol/L (20.0-31.0); Chloride 101 mMol/L (98-107); Creatinine (Component) 0.6 mg/dL (0.6-1.3); Globulin 2.9 gm/dL (2.3-3.5); Glucose 172 mg/dL (74-106); Osmolality,Calculated 271 (275-295); Potassium 3.7 mMol/L (3.4-5.1); Sodium 134 mMol/L (136-145); Total Protein 6.9 gm/dL (5.7-8.2); eGFR > 60 See Note
[2024-05-10 11:48] LABS: Carcinoembryonic Antigen 43.8 ng/mL (0.0-5.0)
== END 2024-05-10 23:59 | disposition home or self-care (01) ==
LOC: SCTC 09:00
PROVIDERS: PCP Physician Assistant; Referring Provider Physician Assistant; Visit Provider Internal Medicine Hematology & Oncology
DX: Z51.11 Encounter for antineoplastic chemotherapy (principal); C18.0 Malignant neoplasm of cecum; E11.9 Type 2 diabetes mellitus without complications; Z90.49 Acquired absence of other specified parts of digestive tract
CPT/HCPCS: 36591; 80053; 82378; 85025; 96366; 96367; 96368; 96411; 96413; 96415; 96416; 99213; A4216; J0640; J1100; J1453; J1642; J2405; J7050; J9190; J9263; G0463

== ENCOUNTER 2024-05-31 09:52 | Outpatient (RCR) | payer MEDICAID, SELFPAY ==
[2024-05-13 08:27] LABS: Basophils % (Auto) 0 % (0-2.5); Eosinophils # (Auto) 0.2 Thou/mm3 (0.0-0.5); Eosinophils % (Auto) 5 % (0-10); Hematocrit 22.5 % (41.0-53.0); Immature Granulocytes % (Auto) 0 % (0-0); Immature Granulocytes Auto 0.01 Thou/mm3 (0.00-0.00); Lymphocytes % (Auto) 26 % (10-50); Mean Corpuscular HGB Conc 33.3 g/dl (31.0-37.0); Mean Corpuscular Volume 87 fL (80-100); Monocytes # (Auto) 0.3 Thou/mm3 (0.0-0.8); Monocytes % (Auto) 8 % (0-12); Neutrophils # (Auto) 2.3 Thou/mm3 (1.8-7.7); Neutrophils % (Auto) 61 % (37-80); Nucleated Red Blood Cell % 0 /100 WBC (0); Platelet Count 307 Thou/mm3 (140-440); RDW Standard Deviation 42.5 fL (35.1-43.9); Red Blood Count 2.59 Miln/mm3 (4.50-5.90); White Blood Count 3.8 Thou/mm3 (3.8-10.6)
[2024-05-13 08:57] LABS: Hemoglobin 7.5 g/dL (13.5-16.0)
[2024-05-13 10:28] LABS: Folate 21.86 ng/mL (>5.38); Vitamin B12 1138 pg/mL (211-911)
[2024-05-13 10:33] LABS: Ferritin 131 ng/mL (10.5-307.3); Total Iron Binding Capacity 278 mcg/dL (250-425)
[2024-05-13 10:43] LABS: Iron 39 mcg/dL (65-175); Percent Iron Saturation 14 % (20-55); Unsaturated Iron Binding 239 (225-295)
[2024-05-28 09:11] LABS: Basophils % (Auto) 1 % (0-2.5); Eosinophils # (Auto) 0.1 Thou/mm3 (0.0-0.5); Eosinophils % (Auto) 2 % (0-10); Hematocrit 27.8 % (41.0-53.0); Hemoglobin 9.2 g/dL (13.5-16.0); Immature Granulocytes % (Auto) 0 % (0-0); Immature Granulocytes Auto 0.01 Thou/mm3 (0.00-0.00); Lymphocytes % (Auto) 24 % (10-50); Mean Corpuscular HGB Conc 33.1 g/dl (31.0-37.0); Mean Corpuscular Hemoglobin 28.8 pg (25.0-35.0); Mean Corpuscular Volume 87 fL (80-100); Monocytes # (Auto) 0.6 Thou/mm3 (0.0-0.8); Monocytes % (Auto) 14 % (0-12); Neutrophils # (Auto) 2.5 Thou/mm3 (1.8-7.7); Neutrophils % (Auto) 59 % (37-80); Nucleated Red Blood Cell % 0 /100 WBC (0); Platelet Count 204 Thou/mm3 (140-440); Red Blood Count 3.19 Miln/mm3 (4.50-5.90); White Blood Count 4.2 Thou/mm3 (3.8-10.6)
[2024-05-28 09:36] LABS: Alanine Aminotransferase 10 U/L (10-49); Albumin/Globulin Ratio 1.3 (1.2-2.2); Alkaline Phosphatase 80 U/L (46-116); Anion Gap 9 (7-16); Aspartate Amino Transferase 16 U/L (0-34); BUN/Creatinine Ratio 16 Ratio (12-20); Bilirubin,Total 0.4 mg/dL (0.3-1.2); Blood Urea Nitrogen 13 mg/dL (9-23); Calcium 9.4 mg/dL (8.3-10.6); Calcium (Corrected) 9.4 mg/dL (8.5-10.1); Chloride 99 mMol/L (98-107); Creatinine (Component) 0.8 mg/dL (0.6-1.3); Globulin 3.1 gm/dL (2.3-3.5); Glucose 265 mg/dL (74-106); Osmolality,Calculated 277 (275-295); Potassium 4.4 mMol/L (3.4-5.1); Sodium 134 mMol/L (136-145); Total Protein 7.1 gm/dL (5.7-8.2); eGFR > 60 See Note
== END 2024-06-07 23:59 | disposition home or self-care (01) ==
LOC: SCTC 09:52
PROVIDERS: PCP Physician Assistant; Referring Provider Internal Medicine Hematology & Oncology; Visit Provider Internal Medicine Hematology & Oncology
DX: Z51.11 Encounter for antineoplastic chemotherapy (principal); C18.0 Malignant neoplasm of cecum; Z90.49 Acquired absence of other specified parts of digestive tract; E11.9 Type 2 diabetes mellitus without complications
CPT/HCPCS: 36430; 36591; 80053; 82378; 82607; 82728; 82746; 83540; 83550; 85025; 86850; 86900; 86901; 86923; 96366; 96367; 96368; 96411; 96413; 96415; 96416; 99211; A4216; J0640; J1100; J1453; J1642; J2405; J7050; J7060; J9190; J9263; P9016; G0463

== ENCOUNTER 2024-07-02 11:01 | Outpatient (RCR) | payer MEDICAID, SELFPAY ==
[2024-06-11 11:05] LABS: Basophils % (Auto) 0 % (0-2.5); Eosinophils # (Auto) 0.2 Thou/mm3 (0.0-0.5); Eosinophils % (Auto) 3 % (0-10); Hematocrit 26.3 % (41.0-53.0); Hemoglobin 8.9 g/dL (13.5-16.0); Immature Granulocytes % (Auto) 0 % (0-0); Immature Granulocytes Auto 0.01 Thou/mm3 (0.00-0.00); Lymphocytes # (Auto) 1.2 Thou/mm3 (1.0-4.8); Lymphocytes % (Auto) 23 % (10-50); Mean Corpuscular HGB Conc 33.8 g/dl (31.0-37.0); Mean Corpuscular Hemoglobin 29.6 pg (25.0-35.0); Mean Corpuscular Volume 87 fL (80-100); Monocytes # (Auto) 0.6 Thou/mm3 (0.0-0.8); Monocytes % (Auto) 12 % (0-12); Neutrophils # (Auto) 3.2 Thou/mm3 (1.8-7.7); Neutrophils % (Auto) 61 % (37-80); Nucleated Red Blood Cell % 0 /100 WBC (0); Platelet Count 183 Thou/mm3 (140-440); Red Blood Count 3.01 Miln/mm3 (4.50-5.90); White Blood Count 5.3 Thou/mm3 (3.8-10.6)
[2024-06-11 11:26] LABS: Carcinoembryonic Antigen 24.8 ng/mL (0.0-5.0)
[2024-06-11 11:40] LABS: Alanine Aminotransferase 9 U/L (10-49); Albumin/Globulin Ratio 1.2 (1.2-2.2); Alkaline Phosphatase 89 U/L (46-116); Anion Gap 7 (7-16); Aspartate Amino Transferase 15 U/L (0-34); BUN/Creatinine Ratio 17 Ratio (12-20); Bilirubin,Total 0.4 mg/dL (0.3-1.2); Blood Urea Nitrogen 12 mg/dL (9-23); Calcium 9.3 mg/dL (8.3-10.6); Calcium (Corrected) 9.3 mg/dL (8.5-10.1); Carbon Dioxide 26.7 mMol/L (20.0-31.0); Chloride 101 mMol/L (98-107); Creatinine (Component) 0.7 mg/dL (0.6-1.3); Globulin 3.3 gm/dL (2.3-3.5); Glucose 158 mg/dL (74-106); Osmolality,Calculated 272 (275-295); Potassium 4.1 mMol/L (3.4-5.1); Sodium 135 mMol/L (136-145); Total Protein 7.3 gm/dL (5.7-8.2); eGFR > 60 See Note
[2024-06-25 14:19] LABS: Basophils % (Auto) 0 % (0-2.5); Eosinophils # (Auto) 0.1 Thou/mm3 (0.0-0.5); Eosinophils % (Auto) 2 % (0-10); Hematocrit 25.9 % (41.0-53.0); Immature Granulocytes % (Auto) 0 % (0-0); Immature Granulocytes Auto 0.01 Thou/mm3 (0.00-0.00); Lymphocytes # (Auto) 1.1 Thou/mm3 (1.0-4.8); Lymphocytes % (Auto) 19 % (10-50); Mean Corpuscular HGB Conc 33.2 g/dl (31.0-37.0); Mean Corpuscular Hemoglobin 28.8 pg (25.0-35.0); Mean Corpuscular Volume 87 fL (80-100); Monocytes # (Auto) 0.7 Thou/mm3 (0.0-0.8); Monocytes % (Auto) 11 % (0-12); Neutrophils # (Auto) 4.1 Thou/mm3 (1.8-7.7); Neutrophils % (Auto) 68 % (37-80); Nucleated Red Blood Cell % 0 /100 WBC (0); Platelet Count 206 Thou/mm3 (140-440); RDW Standard Deviation 47.6 fL (35.1-43.9); Red Blood Count 2.99 Miln/mm3 (4.50-5.90)
[2024-06-25 14:22] LABS: Hemoglobin 8.6 g/dL (13.5-16.0)
[2024-06-25 14:40] LABS: Carcinoembryonic Antigen 25.7 ng/mL (0.0-5.0)
[2024-06-25 14:42] LABS: Albumin, Serum 3.9 gm/dL (3.4-4.8); Albumin/Globulin Ratio 1.2 (1.2-2.2); Alkaline Phosphatase 91 U/L (46-116); Anion Gap 10 (7-16); Aspartate Amino Transferase 16 U/L (0-34); BUN/Creatinine Ratio 13 Ratio (12-20); Bilirubin,Total 0.4 mg/dL (0.3-1.2); Blood Urea Nitrogen 9 mg/dL (9-23); Calcium 9.2 mg/dL (8.3-10.6); Calcium (Corrected) 9.3 mg/dL (8.5-10.1); Chloride 99 mMol/L (98-107); Creatinine (Component) 0.7 mg/dL (0.6-1.3); Globulin 3.3 gm/dL (2.3-3.5); Glucose 125 mg/dL (74-106); Osmolality,Calculated 269 (275-295); Potassium 3.7 mMol/L (3.4-5.1); Sodium 135 mMol/L (136-145); Total Protein 7.2 gm/dL (5.7-8.2); eGFR > 60 See Note
[2024-06-25 14:51] LABS: Alanine Aminotransferase < 7 U/L (10-49)
--- NOTE | 2024-07-28 20:32 | CTCFLWUP_ITS ---
Patient: ROBBY HERZOG : 1960 Page 3 of 4 FOLLOW UP NOTE DATE OF SERVICE: 07/02/2024 NAME: ROBBY HERZOG ACCOUNT: [id number] : 1960 AGE: 64 INTERVAL HISTORY: Patient is doing well. ONCOLOGY HISTORY: DIAGNOSIS: Malignant neoplasm of cecum [ICD10] C18.0 DATE OF DIAGNOSIS: 12/03/2023 STAGE/TNM: Stage III colon cancer TREATMENT HISTORY: Care?Plan Start?Date Cycle Day Intent mFOLFOX-6?-?5FU?400?+?2400?CIV,?LVR?400,OXALIplat?85 02/12/2024 1 14 Curative?(adjuvant) HISTORY OF PRESENT ILLNESS: Patient is 64-year-old male. Patient is here for follow-up. Patient is on adjuvant chemotherapy for his history of stage III colon cancer Patient had his port catheter occluded and is being planned for replacement. Patient also have uncontrolled glucose and was seen in emergency room yesterday. He was not following up with his diabetes medications or PCP. 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 Tumor site cecum and distal ileum G3 greatest dimension of the tumor 9 cm additional dimension 4 x 3 cm. Tumor invades through muscularis propria area into pericolorectal tissue replaces much of the bowel wall of cecum and ileum lymphovascular invasion perineural invasion both present. Proximal margin involved by invasive carcinoma and mucosa and submucosa failure distal involved by invasive carcinoma and mucosa of ascendin of the 18 lymph nodes positive for carcinoma. 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 Edarbi - 40 mg 1 tab Twice a Day 2. metFORMIN - 1,000 mg 1 tab Twice a Day 3. OraMagicRx - 15 mL 3 times daily 4. Tradjenta - 5 mg 1 tab Daily 5. zinc - 50 mg 1 tab Daily Medications Last Reconciled by Joanne Funk MA on 07/02/2024 ALLERGIES: No Known Drug Allergies REVIEW OF SYSTEMS: A complete 14-point review of systems was performed and is negative except as noted in interval history. PHYSICAL EXAMINATION: VITAL SIGNS: Temperature?98.9, B/P?123/75, Oxygen?Saturation?100% Weight?135.4?lbs (Change?since?06/28/24:?-6?lbs) PAIN: 0 - No pain ECOG Performance Status: 0 - Asymptomatic and fully active GENERAL APPEARANCE: Appears well, in no apparent distress, appropriately interactive. HEENT: Normocephalic, no temporal wasting, normal conjunctiva, no scleral icterus, normal hearing, lips without lesions, neck normal range of motion. CARDIOVASCULAR: Not assessed. PULMONARY: Normal respiratory effort, no respiratory distress or use of accessory muscles, speaking in full sentences, no tachypnea. EXTREMITIES: No pedal edema or cyanosis. SKIN: Normal skin appearance. NEUROLOGIC: Alert and oriented x4. PSHYCHIATRIC: Appropriate affect, mood normal, behavior normal, intact thought and speech. LABORATORY DATA: I have personally reviewed and interpreted each of the patient?s relevant lab tests, abnormal findings are below: Date 07/09/24 07/23/24 ??WHITE?BLOOD?COUNT?(Thou/mm3) 4.6 5.2 ??RED?BLOOD?COUNT?(Miln/mm3) 2.81?L 3.05?L ??HEMOGLOBIN?(gm/dl) 8.2?L 8.9?L ??HEMATOCRIT?(%) 24.8?L 26.5?L ??PLATELET?COUNT?(Thou/mm3) 214 266 ??NEUTROPHILS?%,?AUTO?(%) 62 61 ??LYMPH?%,?AUTO?(%) 22 23 ??NEUTROPHILS,?AUTO?(Thou/mm3) 2.9 3.2 ??GLUCOSE,RANDOM?(mg/dL) ? 242?H ??BLOOD?UREA?NITROGEN?(mg/dL) ? 10 ??CREATININE?(mg/dL) ? 0.80 ??SODIUM?(mmol/L) ? 133?L ??POTASSIUM?(mmol/L) ? 3.9 ??CHLORIDE?(mmol/L) ? 97?L ??CrCl?(CandG)?(ml/min) ? 81.75 ??AST/SGOT?(Unit/L) ? 16 ??ALT/SGPT?(Unit/L) ? 9?L ??ALKALINE?PHOSPHATASE?(Unit/L) ? 96 ??BILIRUBIN,?TOTAL?(mg/dL) ? 0.5 ??PROTEIN?TOTAL?(gm/dl) ? 7.6 ??ALBUMIN,?SERUM?(gm/dl) ? 3.9 ??GLOBULIN?(gm/dl) ? 3.7?H ??ALBUMIN/GLOBULIN?RATIO ? 1.1?L ??CALCIUM,?SERUM?(mg/dL) ? 9.4 ??CALCIUM?SERUM?(CORRECTED)?(mg/dL) ? 9.5 ??CEA?(O*)?(ng/ml) ? 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 Gera Mena to proceed with cycle 3 Compliance of to treatment reiterated CEA is upward trending Will see in 4 weeks if patient's CEA goes down Will do PET CT scan at that time if CEA continues to go up Will place nutrition consult #2 uncontrolled diabetes Consult for diet and exercise and to decrease total carb intake to have better control of glucose continue to follow with the PCP CBC CMP CEA Proceed with chemotherapy Nutrition consult ORDERS: Order # Description [id number] CBC + Comprehensive Metabolic Panel + CEA [id number] Lab Appointment [id number] Follow Up Appointment [id number] Infusion 5 Hours [id number] Discontinue CIV Pump [id number] CBC + Comprehensive Metabolic Panel + CEA [id number] Lab Appointment [id number] Follow Up Appointment MD [id number] Infusion 5 Hours [id number] Discontinue CIV Pump [id number] CBC + Comprehensive Metabolic Panel + CEA [id number] Lab Appointment [id number] Follow Up Appointment MD [id number] Infusion 5 Hours [id number] Discontinue CIV Pump [id number] CBC + Comprehensive Metabolic Panel + CEA [id number] Lab Appointment [id number] Follow Up Appointment MD [id number] Infusion 5 Hours [id number] Discontinue CIV Pump [id number] CBC + Comprehensive Metabolic Panel + CEA [id number] Lab Appointment [id number] Follow Up Appointment RETURN TO CLINIC: BILLING AND COMPLIANCE: I reviewed external records from providers outside my specialty as summarized above. I spent a total of 50 minutes on this patient?s care on the day of their visit excluding time spent related to any billed procedures. This time includes time spent with the patient as well as time spent documenting in the medical record, reviewing patients records and tests, obtaining history, placing orders, communicating with other healthcare professionals, counseling the patient, family or caregiver, and/or care coordination for the diagnoses above. Electronically Signed by: {Object.Sanct_ID*PnP.NameFL@M}, {Object.Sanct_ID*PnP.Suffix@U} D: {Object.Sanct_Date} T: {Object.Sanct_Time} CC: PCP: Jose Woods Referring: Jose Woods This document was completed utilizing speech recognition software. Grammatical errors, random word insertions, pronoun errors, and incomplete sentences are an occasional consequence of this system due to software limitations, ambient noise, and hardware issues. Any formal questions or concerns about the content, text or information contained within the body of this dictation should be directly addressed to the provider for clarification.
== END 2024-07-08 23:59 | disposition home or self-care (01) ==
LOC: SCTC 11:01
PROVIDERS: PCP Physician Assistant; Referring Provider Physician Assistant; Visit Provider Internal Medicine Hematology & Oncology
DX: Z51.11 Encounter for antineoplastic chemotherapy (principal); C18.0 Malignant neoplasm of cecum; Z90.49 Acquired absence of other specified parts of digestive tract; E11.9 Type 2 diabetes mellitus without complications; Z79.84 Long term (current) use of oral hypoglycemic drugs
CPT/HCPCS: 36591; 80053; 82378; 85025; 96366; 96367; 96368; 96411; 96413; 96415; 96416; 99213; A4216; J0640; J1100; J1453; J1642; J2405; J7050; J7060; J9190; J9263; G0463

== ENCOUNTER → 2024-08-06 | Outpatient (CLI) | payer MEDICAID, SELFPAY ==
--- NOTE | 2024-08-06 13:30 | XR_ITS ---
Examination: CT chest with intravenous contrast CT abdomen with intravenous contrast CT pelvis with intravenous contrast CT chest without intravenous contrast CT abdomen without intravenous contrast CT pelvis without intravenous contrast 2-D coronal and sagittal reconstructions Time of exam: August 06, 2024 1404 hours Comparison PET/CT scan January 18, 2024, CT abdomen pelvis November 29, 2023 INDICATIONS: Diagnosis malignant neoplasm colon November 2023 restaging CTDI: vol (mGy) : 16.7 DLP: (mGycm): 936 Technique: Multiple axial images of the chest, abdomen and pelvis with intravenous contrast, 3.0 mm slice thickness. Images obtained post intravenous injection Isovue 370 60 cc. 2-D sagittal and coronal reconstructions. Low dose protocols were performed. One or more of the following dose reduction techniques were used; automated exposure control, adjustment of the mA and/or KV according to patient size, use of iterative reconstruction technique. Findings: 10 mm calcified right thyroid nodule No thoracic aortic aneurysm dilatation or dissection Pulmonary artery segments are not enlarged There are, however pulmonary artery filling defects in right pulmonary artery branches No mediastinal lymphadenopathy On this study 4 mm pulmonary nodule left lower lobe image 213 not seen on the prior examination No pneumonia or pulmonary edema Cirrhosis, liver is irregular in contour Moderate ascites Contracted gallbladder No pancreatic or adrenal mass No hydronephrosis No interval abdominal or pelvic lymphadenopathy No bowel obstruction Urinary bladder wall thickening up to 12 mm IMPRESSION: Positive for pulmonary artery emboli in segmental branches of the right pulmonary artery 4 mm pulmonary nodule left lower lobe, not seen on the November 29, 2023 exam Moderate ascites No interval abdominal or pelvic lymphadenopathy
== END | disposition home or self-care (01) ==
LOC: CCTX 13:04
PROVIDERS: PCP Physician Assistant; Referring Provider Internal Medicine Hematology & Oncology; Visit Provider Internal Medicine Hematology & Oncology
DX: R91.8 Other nonspecific abnormal finding of lung field (principal); R18.8 Other ascites; C18.0 Malignant neoplasm of cecum
CPT/HCPCS: 71270; 74178; A4649; Q9967

== ENCOUNTER 2024-08-07 07:27 | Outpatient (RCR) | payer MEDICAID, SELFPAY ==
[2024-07-09 12:38] LABS: Basophils % (Auto) 0 % (0-2.5); Eosinophils # (Auto) 0.1 Thou/mm3 (0.0-0.5); Eosinophils % (Auto) 2 % (0-10); Hematocrit 24.8 % (41.0-53.0); Immature Granulocytes % (Auto) 0 % (0-0); Immature Granulocytes Auto 0.02 Thou/mm3 (0.00-0.00); Lymphocytes % (Auto) 22 % (10-50); Mean Corpuscular HGB Conc 33.1 g/dl (31.0-37.0); Mean Corpuscular Hemoglobin 29.2 pg (25.0-35.0); Mean Corpuscular Volume 88 fL (80-100); Monocytes # (Auto) 0.6 Thou/mm3 (0.0-0.8); Monocytes % (Auto) 13 % (0-12); Neutrophils # (Auto) 2.9 Thou/mm3 (1.8-7.7); Neutrophils % (Auto) 62 % (37-80); Nucleated Red Blood Cell % 0 /100 WBC (0); Platelet Count 214 Thou/mm3 (140-440); RDW Standard Deviation 50.4 fL (35.1-43.9); Red Blood Count 2.81 Miln/mm3 (4.50-5.90); White Blood Count 4.6 Thou/mm3 (3.8-10.6)
[2024-07-09 12:40] LABS: Hemoglobin 8.2 g/dL (13.5-16.0)
[2024-07-09 12:55] LABS: Carcinoembryonic Antigen 35.4 ng/mL (0.0-5.0)
[2024-07-09 13:04] LABS: Alanine Aminotransferase < 7 U/L (10-49); Albumin, Serum 3.7 gm/dL (3.4-4.8); Albumin/Globulin Ratio 1.1 (1.2-2.2); Alkaline Phosphatase 85 U/L (46-116); Anion Gap 6 (7-16); Aspartate Amino Transferase 15 U/L (0-34); BUN/Creatinine Ratio 14 Ratio (12-20); Bilirubin,Total 0.4 mg/dL (0.3-1.2); Blood Urea Nitrogen 11 mg/dL (9-23); Calcium 9.1 mg/dL (8.3-10.6); Calcium (Corrected) 9.3 mg/dL (8.5-10.1); Carbon Dioxide 27.6 mMol/L (20.0-31.0); Chloride 102 mMol/L (98-107); Creatinine (Component) 0.8 mg/dL (0.6-1.3); Globulin 3.3 gm/dL (2.3-3.5); Glucose 195 mg/dL (74-106); Osmolality,Calculated 276 (275-295); Sodium 136 mMol/L (136-145); eGFR > 60 See Note
[2024-07-23 11:26] LABS: Basophils % (Auto) 1 % (0-2.5); Eosinophils # (Auto) 0.1 Thou/mm3 (0.0-0.5); Eosinophils % (Auto) 1 % (0-10); Hematocrit 26.5 % (41.0-53.0); Hemoglobin 8.9 g/dL (13.5-16.0); Immature Granulocytes % (Auto) 0 % (0-0); Immature Granulocytes Auto 0.01 Thou/mm3 (0.00-0.00); Lymphocytes # (Auto) 1.2 Thou/mm3 (1.0-4.8); Lymphocytes % (Auto) 23 % (10-50); Mean Corpuscular HGB Conc 33.6 g/dl (31.0-37.0); Mean Corpuscular Hemoglobin 29.2 pg (25.0-35.0); Mean Corpuscular Volume 87 fL (80-100); Monocytes # (Auto) 0.7 Thou/mm3 (0.0-0.8); Monocytes % (Auto) 14 % (0-12); Neutrophils # (Auto) 3.2 Thou/mm3 (1.8-7.7); Neutrophils % (Auto) 61 % (37-80); Nucleated Red Blood Cell % 0 /100 WBC (0); Platelet Count 266 Thou/mm3 (140-440); RDW Standard Deviation 48.3 fL (35.1-43.9); Red Blood Count 3.05 Miln/mm3 (4.50-5.90); White Blood Count 5.2 Thou/mm3 (3.8-10.6)
[2024-07-23 11:37] LABS: Alanine Aminotransferase 9 U/L (10-49); Albumin, Serum 3.9 gm/dL (3.4-4.8); Albumin/Globulin Ratio 1.1 (1.2-2.2); Alkaline Phosphatase 96 U/L (46-116); Anion Gap 8 (7-16); Aspartate Amino Transferase 16 U/L (0-34); BUN/Creatinine Ratio 13 Ratio (12-20); Bilirubin,Total 0.5 mg/dL (0.3-1.2); Blood Urea Nitrogen 10 mg/dL (9-23); Calcium 9.4 mg/dL (8.3-10.6); Calcium (Corrected) 9.5 mg/dL (8.5-10.1); Carbon Dioxide 27.9 mMol/L (20.0-31.0); Chloride 97 mMol/L (98-107); Creatinine (Component) 0.8 mg/dL (0.6-1.3); Globulin 3.7 gm/dL (2.3-3.5); Glucose 242 mg/dL (74-106); Osmolality,Calculated 273 (275-295); Potassium 3.9 mMol/L (3.4-5.1); Sodium 133 mMol/L (136-145); Total Protein 7.6 gm/dL (5.7-8.2); eGFR > 60 See Note
[2024-07-23 11:40] LABS: Carcinoembryonic Antigen 60.1 ng/mL (0.0-5.0)
[2024-08-06 10:56] LABS: Basophils % (Auto) 0 % (0-2.5); Eosinophils # (Auto) 0.2 Thou/mm3 (0.0-0.5); Eosinophils % (Auto) 3 % (0-10); Hematocrit 25.9 % (41.0-53.0); Immature Granulocytes % (Auto) 0 % (0-0); Immature Granulocytes Auto 0.01 Thou/mm3 (0.00-0.00); Lymphocytes # (Auto) 1.3 Thou/mm3 (1.0-4.8); Lymphocytes % (Auto) 26 % (10-50); Mean Corpuscular HGB Conc 33.2 g/dl (31.0-37.0); Mean Corpuscular Hemoglobin 29.2 pg (25.0-35.0); Mean Corpuscular Volume 88 fL (80-100); Monocytes # (Auto) 0.7 Thou/mm3 (0.0-0.8); Monocytes % (Auto) 14 % (0-12); Neutrophils # (Auto) 2.9 Thou/mm3 (1.8-7.7); Neutrophils % (Auto) 56 % (37-80); Nucleated Red Blood Cell % 0 /100 WBC (0); Platelet Count 264 Thou/mm3 (140-440); RDW Standard Deviation 47.8 fL (35.1-43.9); Red Blood Count 2.95 Miln/mm3 (4.50-5.90); White Blood Count 5.1 Thou/mm3 (3.8-10.6)
[2024-08-06 11:02] LABS: Hemoglobin 8.6 g/dL (13.5-16.0)
[2024-08-06 11:19] LABS: Alanine Aminotransferase 10 U/L (10-49); Albumin, Serum 3.9 gm/dL (3.4-4.8); Alkaline Phosphatase 104 U/L (46-116); Anion Gap 7 (7-16); Aspartate Amino Transferase 20 U/L (0-34); BUN/Creatinine Ratio 10 Ratio (12-20); Bilirubin,Total 0.7 mg/dL (0.3-1.2); Blood Urea Nitrogen 7 mg/dL (9-23); Calcium 9.4 mg/dL (8.3-10.6); Calcium (Corrected) 9.5 mg/dL (8.5-10.1); Carbon Dioxide 27.8 mMol/L (20.0-31.0); Carcinoembryonic Antigen 80.3 ng/mL (0.0-5.0); Chloride 95 mMol/L (98-107); Creatinine (Component) 0.7 mg/dL (0.6-1.3); Globulin 3.9 gm/dL (2.3-3.5); Glucose 175 mg/dL (74-106); Osmolality,Calculated 262 (275-295); Potassium 3.8 mMol/L (3.4-5.1); Sodium 130 mMol/L (136-145); Total Protein 7.8 gm/dL (5.7-8.2); eGFR > 60 See Note
--- NOTE | 2024-08-06 15:52 | CTCFLWUP_ITS ---
Patient: ROBBY HERZOG : 1960 MR#: [id number] Page 2 of 2 TELEHEALTH FOLLOW UP NOTE DATE OF CONSULTATION: 08/06/2024 NAME: ROBBY HERZOG ACCOUNT: [id number] : 1960 AGE: 64 REFERRING PHYSICIAN: Jose Woods MD PRIMARY PHYSICIAN: Jose Woods MD INTERVAL HISTORY: Robby Morse, a male with cancer history and cirrhotic liver, presented with asymptomatic pulmonary emboli in segmental branches of the right pulmonary artery detected on CT scan. Medical history includes cirrhosis with moderate ascites. CT also revealed a new 4mm pulmonary nodule in left lower lobe. Started on Xarelto 15mg BID for 21 days, then 20mg daily. Patient counseled on anticoagulation importance, advised to seek emergency care if symptoms develop, and scheduled for echocardiogram and follow-up appointment. DIAGNOSIS: Malignant neoplasm of cecum [ICD10] C18.0 HISTORY OF PRESENT ILLNESS: 64-year-old male Chief Complaint Asymptomatic pulmonary embolism detected on CT scan History of Present Illness Robby Morse, a patient with a history of cancer and cirrhotic liver, presented for follow-up after a CT scan performed on 08/06/2024. The scan revealed pulmonary artery emboli in segmental branches of the right pulmonary artery. During a telephone consultation, the patient reported being asymptomatic and initially expressed reluctance to go to the emergency room. He was extensively counseled about the risks associated with blood clots, including the possibility of a clot traveling to his brain. The patient agreed to start immediate anticoagulation therapy at home with Xarelto, citing long wait times as the reason for avoiding the emergency room. He committed to seeking emergency care if any symptoms developed. The patient's overall health status appears to have changed since the previous visit, with the new finding of pulmonary emboli. However, he remains asymptomatic at this time. The patient demonstrated understanding of the seriousness of his condition and agreed to adhere to the prescribed anticoagulation regimen. Medical History - Pulmonary embolism in segmental branches of the right pulmonary artery - Cirrhotic liver with irregular contours - Moderate ascites Review of Systems General: Negative for symptoms. OTHER MEDICAL HISTORY/CONDITIONS: COLON?CANCER DIABETES Right Hemicolectomy - 12/03/23 Port Placement FAMILY HISTORY: Patient?denies?family?cancer?history. 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 Tobacco?Use:?Denies ETOH Use:?Drank 4 beers/day x 40yrs - Quit 1 month ago Drug?Note:?Denies Social?History?Note:?Lives?with? MEDICATIONS: 1. Edarbi - 40 mg 1 tab Twice a Day 2. metFORMIN - 1,000 mg 1 tab Twice a Day 3. OraMagicRx - 15 mL 3 times daily 4. Tradjenta - 5 mg 1 tab Daily 5. Xarelto - 15 mg (42)- 20 mg (9) 1 tab as instructed 6. zinc - 50 mg 1 tab Daily Medications Last Reconciled by Joanne Funk MA on 07/02/2024 ALLERGIES: No Known Drug Allergies REVIEW OF SYSTEMS: A complete 14-point review of systems was performed and is negative except as noted in interval history. PHYSICAL EXAMINATION: The patient appeared well-nourished, alert, and in no apparent distress via video conferencing. LABORATORY DATA: I have personally reviewed and interpreted each of the patient?s relevant lab tests, abnormal findings are below: Laboratory, Imaging, and Diagnostic Test Results - CT scan (08/06/2024): - Positive for pulmonary artery emboli in segmental branches of the right pulmonary artery - 4-millimeter pulmonary nodule in left lower lobe (not seen on November 29, 2019) - Moderate ascites - No interval abdominal or pelvic lymphadenopathy - Cirrhotic liver with irregular contoursASSESSMENT/PLAN: Assessment and plan Robby Morse presents with pulmonary embolism detected on CT scan, with a history of cancer and cirrhosis. Pulmonary Embolism Assessment: CT scan performed on 08/06/2024 revealed pulmonary artery emboli in segmental branches of the right pulmonary artery. The patient is currently asymptomatic but requires immediate anticoagulation due to the risk of stroke. The presence of cirrhosis and ascites complicates the management of an ticoagulation. Plan: - Start Xarelto (rivaroxaban) for anticoagulation: - 15 mg PO BID for 21 days, then 20 mg PO daily - Patient instructed to take first dose immediately and second dose in 12 hours - Patient counseled on risks and importance of adherence to anticoagulation - Advised to go to the emergency room if any symptoms develop - Ordered echocardiogram to assess heart function and potential right heart strain - Schedule follow-up appointment in clinic NITIN Cancer (unspecified type) Assessment: Patient has a history of cancer. Recent CT scan showed a 4 mm pulmonary nodule in the left lower lobe, which was not present on a previous scan from November 29, 2019. The overall cancer burden appears to be minimal, with no interval abdominal or pelvic lymphadenopathy noted. Plan: - Continue current cancer management plan (details not specified in transcript) - Patient scheduled for chemotherapy tomorrow (08/07/2024) Cirrhosis Assessment: CT scan revealed cirrhotic liver with irregular contours and moderate ascites, indicating advanced liver disease. Plan: - Continue current management (details not specified in transcript) - Monitor liver function and ascites (specific tests not mentioned) ORDERS: Order # Description [id number] Follow Up Appointment [id number] Comprehensive Metabolic Panel - 12 + CBC with Auto Diff [id number] Infusion 5 Hours [id number] Discontinue CIV Pump [id number] CBC + Comprehensive Metabolic Panel + CEA [id number] Lab Appointment [id number] Follow Up Appointment [id number] Infusion 5 Hours [id number] Discontinue CIV Pump [id number] CBC + Comprehensive Metabolic Panel + CEA [id number] Lab Appointment [id number] Follow Up Appointment [id number] Infusion 5 Hours [id number] Discontinue CIV Pump [id number] CBC + Comprehensive Metabolic Panel + CEA [id number] Lab Appointment [id number] Follow Up Appointment [id number] Infusion 5 Hours [id number] Discontinue CIV Pump [id number] CBC + Comprehensive Metabolic Panel + CEA [id number] Lab Appointment [id number] Follow Up Appointment RETURN TO CLINIC: BILLING AND COMPLIANCE: I reviewed external records from providers outside my specialty as summarized above. I spent a total of 50 minutes on this patient?s care on the day of their visit excluding time spent related to any billed procedures. This time includes time spent with the patient as well as time spent documenting in the medical record, reviewing patients records and tests, obtaining history, placing orders, communicating with other healthcare professionals, counseling the patient, family or caregiver, and/or care coordination for the diagnoses above. I performed this evaluation using real-time Telehealth tools. Prior to initiating, the patient consented to perform this evaluation using Telehealth tools. Electronically Signed by: Eliud Felipe MD T: 3:49 PM CC: PCP: Jose Woods Referring: Jose Woods This document was completed utilizing speech recognition software. Grammatical errors, random word insertions, pronoun errors, and incomplete sentences are an occasional consequence of this system due to software limitations, ambient noise, and hardware issues. Any formal questions or concerns about the content, text or information contained within the body of this dictation should be directly addressed to the provider for clarification.
== END 2024-08-07 23:59 | disposition home or self-care (01) ==
LOC: SCTC 07:27
PROVIDERS: PCP Family Medicine; Referring Provider Family Medicine; Visit Provider Internal Medicine Hematology & Oncology
DX: Z51.11 Encounter for antineoplastic chemotherapy (principal); C18.0 Malignant neoplasm of cecum; I26.99 Other pulmonary embolism without acute cor pulmonale; K74.60 Unspecified cirrhosis of liver; R18.8 Other ascites; R91.1 Solitary pulmonary nodule; Z90.49 Acquired absence of other specified parts of digestive tract
CPT/HCPCS: 36591; 80053; 82378; 85025; 96367; 96368; 96374; 96375; 96411; 96413; 96415; 96416; 96521; 96549; 99212; A4216; J0640; J1100; J1453; J1642; J2405; J7050; J9190; J9263; G0463

== ENCOUNTER 2024-08-17 11:36 | Emergency (ER) | payer MEDICAID, SELFPAY ==
--- NOTE | 2024-08-17 | XR_ITS ---
Examinations: MRI Brain without intravenous contrast. MRI brain with intravenous contrast MRA brain with intravenous contrast. MRA brain without intravenous contrast MRA neck with intravenous contrast Date and time of exam: August 17, 2024 1848 hours INDICATIONS: Weakness and dizziness beginning August 07, 2024, diagnosis malignant neoplasm colon Technique: Multiple axial and sagittal images of the brain have been obtained Siemens high-resolution 1.5 Anitra short bore scanner is utilized. Sagittal sections, T1-weighted, TR 500, TE 14 Axial sections proton density and T2-weighted, TR 3,000, TE 34, TR 3,000, TE 91 Inversion recovery axial images, TR 9,260, TE 111, TI 2,500 Diffusion weighted images, axial sections, TR 4,800, TE 128, B value 1,000 Axial sections, ADC map, TR 4,800, TE 128. Contrast images have been obtained post intravenous 19 cc Gadolinium. T1-weighted axial and coronal images post contrast have been obtained. Angiographic images of neck and brain are obtained pre and post contrast. 3-D post processing performed, including brain, extracranial neck arterial maximum intensity projections Findings: Sellaturcica is not enlarged. The optic chiasm and infundibular stalk are not remarkable. Prepontine and interpeduncular cisterns are not enlarged. No localized enlargement of the medulla or celia. Fourth ventricle and cerebellar tonsils normal in position. Subacute hemorrhage is not seen. Fourth ventricle is midline. Mass in the cerebellopontine angle region is not evident. 7th and 8th nerve complexes exhibits symmetry. Globes are symmetrical with no retro-orbital mass. Increased white matter signal moderate Diffusion-weighted images demonstrateno focus restricted diffusion. Mass-effect upon the ventricular system is not identified. Abnormal contrast enhancement is not seen. MRA brain carotid images no large vessel occlusions Impression: Negative for acute hemorrhage mass effect or midline shift No acute infarct Moderate chronic microvascular white matter change No cerebral large vessel occlusions
--- NOTE | 2024-08-17 12:37 | PD.EDRME ---
Rapid Medical Screening Exam RME Arrival date/time: 08/17/24 11:36 64-year-old male presents to the emergency department today for complaints of headache ongoing since the patient reports he is currently on Xarelto Chief Complaint: Headache
[2024-08-17 12:41] VITALS: BP 162/92; PULSE 107; RESP 18; TEMP 37.1; O2SAT 100; BMI 23.1
--- NOTE | 2024-08-17 12:51 | XR_ITS ---
Examination: CT brain head without contrast. 2-D sagittal coronal reconstructions Date and time of exam:August 17, 2024 1357 hours Comparison February 08, 2023 INDICATIONS: Patient is anticoagulated with onset headaches today CTDI: vol (mGy):51.8 DLP: (mGycm):1084 Technique: Multiple CT axial sections of the brain have been obtained, 5 mm slice thickness. Contrast has not been administered. 2-D sagittal, coronal reconstructions have been obtained Low dose protocols were performed. One or more of the following dose reduction techniques were used; automated exposure control, adjustment of the mA and/or KV according to patient size, use of iterative reconstruction technique. Findings: No significant ventricular enlargement. Intra-axial or extra-axial hemorrhage density is not seen. No mass effect or midline shift Basal cisterns are not remarkable. Fourth ventricle is midline. Cranial vault intact. Impression: Negative for acute hemorrhage, mass effect or midline shift Advise clinical correlation and follow-up accordingly
[2024-08-17 14:09] LABS: Basophils % (Auto) 0 % (0-2.5); Eosinophils % (Auto) 0 % (0-10); Hematocrit 27.2 % (41.0-53.0); Hemoglobin 9.1 g/dL (13.5-16.0); Immature Granulocytes % (Auto) 0 % (0-0); Immature Granulocytes Auto 0.02 Thou/mm3 (0.00-0.00); Lymphocytes # (Auto) 1.2 Thou/mm3 (1.0-4.8); Lymphocytes % (Auto) 22 % (10-50); Mean Corpuscular HGB Conc 33.5 g/dl (31.0-37.0); Mean Corpuscular Hemoglobin 29.3 pg (25.0-35.0); Mean Corpuscular Volume 88 fL (80-100); Monocytes # (Auto) 0.8 Thou/mm3 (0.0-0.8); Monocytes % (Auto) 15 % (0-12); Neutrophils # (Auto) 3.3 Thou/mm3 (1.8-7.7); Neutrophils % (Auto) 63 % (37-80); Nucleated Red Blood Cell % 0 /100 WBC (0); Platelet Count 312 Thou/mm3 (140-440); RDW Standard Deviation 46.9 fL (35.1-43.9); Red Blood Count 3.11 Miln/mm3 (4.50-5.90); White Blood Count 5.2 Thou/mm3 (3.8-10.6)
[2024-08-17 14:33] LABS: INR 1.1 (0.9-1.3); Partial Thromboplastin Time 28.8 Seconds (22.0-36.0); Prothrombin Time 12.3 Seconds (9.0-12.2)
[2024-08-17 14:36] LABS: Alanine Aminotransferase 12 U/L (10-49); Alkaline Phosphatase 108 U/L (46-116); Anion Gap 7 (7-16); Aspartate Amino Transferase 16 U/L (0-34); BUN/Creatinine Ratio 11 Ratio (12-20); Bilirubin,Total 0.5 mg/dL (0.3-1.2); Blood Urea Nitrogen 9 mg/dL (9-23); Calcium 9.3 mg/dL (8.3-10.6); Calcium (Corrected) 9.3 mg/dL (8.5-10.1); Carbon Dioxide 29.1 mMol/L (20.0-31.0); Chloride 97 mMol/L (98-107); Creatinine (Component) 0.8 mg/dL (0.6-1.3); Estimated Creatinine Clearance 81.1 mL/min (>60); Globulin 3.9 gm/dL (2.3-3.5); Glucose 237 mg/dL (74-106); Osmolality,Calculated 273 (275-295); Potassium 3.5 mMol/L (3.4-5.1); Sodium 133 mMol/L (136-145); Total Protein 7.9 gm/dL (5.7-8.2); eGFR > 60 See Note
--- NOTE | 2024-08-17 16:47 | PD.EDHA ---
ED Headache RME/HPI General Chief Complaint: Headache Stated Complaint: HEADACHE Time Seen by Provider: 08/17/24 16:07 Arrival date/time: 08/17/24 11:36 64-year-old male with a recent diagnosis of colon cancer and pulmonary embolism presents to the ED with complaint of a headache since August 07. He states the headache started the same day he started Xarelto medication. He has associated mild dizziness and generalized weakness with walking. He has never had headaches before. He denies any visual or hearing changes as well as no nausea or vomiting. No recent upper respiratory complaints. He is concerned the Xarelto may be causing these headaches. Limitations: language barrier (Office Mail Clerk line utilized.) RME / HPI RME / HPI Narrative: 08/17/24 11:36 64-year-old male presents to the emergency department today for complaints of headache ongoing since the patient reports he is currently on Xarelto Related Data Home Medications ?Medication ?Instructions ?Recorded ?Confirmed azilsartan medoxomil 40 mg tablet 40 mg PO BID 03/29/24 08/27/24 (Edarbi) linagliptin 5 mg tablet (Tradjenta) 5 mg PO DAILY 03/29/24 08/27/24 metformin 1,000 mg tablet 1,000 mg PO BID 03/29/24 08/26/24 Linzess 72 mcg PO DAILY 08/27/24 08/27/24 ondansetron 8 mg disintegrating 8 mg PO Q8H PRN nausea and vomiting 08/27/24 08/27/24 tablet potassium chloride 20 mEq 20 meq PO DAILY 08/27/24 08/27/24 tablet,extended release(part/cryst) rivaroxaban 20 mg tablet (Xarelto) 20 mg PO Q24H 08/27/24 08/27/24 Previous Rx's ?Medication ?Instructions ?Recorded docusate sodium 100 mg capsule 100 mg PO BID #40 caps 04/04/24 (Colace) hydrocodone 5 mg-acetaminophen 325 1 tab PO Q6H PRN pain (scale score 04/04/24 mg tablet 7-10) #10 tabs ibuprofen 600 mg tablet 600 mg PO Q8H PRN pain (scale 04/04/24 score 4-6) #15 tabs acetaminophen 500 mg tablet (Pain 500 mg PO Q6H PRN pain #60 tabs 08/17/24 Relief Extra Strength (acetaminophen)) Allergies Allergy/AdvReac Type Severity Reaction Status Date / Time No Known Allergies Allergy Verified 08/17/24 11:41 Review of Systems Review of Systems Systems Reviewed: All systems reviewed, normal except as documented ED Exam Narrative Physical exam: GENERAL APPEARANCE: alert and oriented x 4, well-developed, well-nourished, no acute distress HEENT: Normocephalic, atraumatic; pupils equal, round, reactive to light; EOMI; mucous membranes pink, moist; oropharynx clear NECK: Supple LUNGS: CTABL; no wheezes, no rales, no rhonchi HEART: Regular rate, regular rhythm; normal S1, S2; no murmurs ABDOMEN: non distended; normal BS; soft, no tenderness, no guarding, no rebound; no masses, no organomegaly, no hernia BACK: no CVA tenderness EXTREMITIES: atraumatic; no edema NEUROLOGIC: awake; alert and oriented x4; cranial nerves II-XII grossly intact; no focal sensory or motor deficits PSYCHIATRIC: appropriate mood and affect SKIN: warm, dry, normal color; no rashes General Limitations: Present language barrier (Office Mail Clerk line utilized.) Course Course Course Narrative: Labs reveal a normal white count of 5.2, low H&H of 9.1/27.2 with normal platelets of 312. Coags are normal with exception of a minimally elevated PT of 12.3. CMP reveals a low sodium of 133, minimally low chloride of 97, normal potassium 3.5, normal CO2 and gap. Normal BUN and creatinine. Glucose elevated at 237, normal LFTs and alk phos. CT brain reveals: Negative for acute hemorrhage, mass effect or midline shift. MRI brain reveals: Negative for acute hemorrhage mass effect or midline shift. No acute infarct. Moderate chronic microvascular white matter change. No cerebral large vessel occlusions. Patient was given Toradol 30 mg IM as well as Zofran 4 mg p.o. Quality Measures none Orders Category Date Time Status CT head/brain wo con Stat Exams 08/17/24 12:51 Completed MR brain wwo MRA brn wo rey w Stat Exams 08/17/24 Completed CBC Stat Lab 08/17/24 13:29 Completed Comprehensive Metabolic Panel Stat Lab 08/17/24 13:29 Completed Partial Thromboplastin Time Stat Lab 08/17/24 13:29 Completed Prothrombin Time with INR Stat Lab 08/17/24 13:29 Completed Ketorolac Inj [Toradol Inj] Med 08/17/24 18:53 Discontinued 30 mg IM X1 ONE Ondansetron Odt [Zofran Odt] Med 08/17/24 18:53 Discontinued 4 mg PO X1 ONE Vital Signs Vital signs: Vital Signs Temperature 98.7 F 08/17/24 12:41 Pulse Rate 107 H 08/17/24 12:41 Respiratory Rate 18 08/17/24 12:41 Blood Pressure 162/92 H 08/17/24 12:41 Pulse Oximetry (%) 100 08/17/24 12:41 Oxygen Delivery Method Room Air 08/17/24 12:41 Headache MDM Narrative MDM Narrative:: 64-year-old male with a recent diagnosis of colon cancer and pulmonary embolism presents to the ED with complaint of a headache since August 07. He states the headache started the same day he started Xarelto medication. He has associated mild dizziness and generalized weakness with walking. He has never had headaches before. He denies any visual or hearing changes as well as no nausea or vomiting. No recent upper respiratory complaints. He is concerned the Xarelto may be causing these headaches. Patient is alert and oriented, in mild acute pain distress. Lungs are clear, regular rate and rhythm. Abdomen is soft and nontender. Moves all extremities well. Pupils are PERRL, EOMs intact. Cranial nerves II through XII grossly intact. CMS intact to all 4 extremities. Labs reveal a normal white count of 5.2, low H&H of 9.1/27.2 with normal platelets of 312. Coags are normal with exception of a minimally elevated PT of 12.3. CMP reveals a low sodium of 133, minimally low chloride of 97, normal potassium 3.5, normal CO2 and gap. Normal BUN and creatinine. Glucose elevated at 237, normal LFTs and alk phos. CT brain reveals: Negative for acute hemorrhage, mass effect or midline shift. MRI brain reveals: Negative for acute hemorrhage mass effect or midline shift. No acute infarct. Moderate chronic microvascular white matter change. No cerebral large vessel occlusions. Patient was given Toradol 30 mg IM as well as Zofran 4 mg p.o. Patient was discharged home in stable and improved condition. Patient data External records reviewed:: [facility] previous records Clinical information provided by:: patient Social determinants that could affect healthcare access:: none Patient has the following chronic illnesses:: Diabetes, hypertension, recent diagnosis of pulmonary embolism. How is presenting disease/condition affected by chronic disease/condition?: exacerbated by Evaluation data The following diagnostics were reviewed and interpreted by me:: lab results and radiology exam(s) Lab and/or radiology exams considered but not ordered:: N/A Interpretation Summary: As noted above Medications / Prescriptions Medications or Prescriptions considered but not ordered:: N/A Medication administrations:: Medication Administration History Discontinued Medications Ketorolac Tromethamine (Ketorolac Inj 60 Mg/2 Ml Vial) 30 mg IM X1 ONE Stop: 08/17/24 18:54 Last Admin: 08/17/24 19:53 Dose: 30 mg Documented By: Ondansetron HCl (Ondansetron Odt 4 Mg Tabrap) 4 mg PO X1 ONE; Protocol Stop: 08/17/24 18:54 Last Admin: 08/17/24 19:53 Dose: 4 mg Documented By: As noted above Consultations Consultation(s) initiated? (list below): No Diagnosis Differential diagnosis headache: migraine, tension headache, subarachnoid hemorrhage, headache, meningitis and sinusitis Most likely diagnosis given after review of the tests above:: Headache Admission Indicated Admission indicated?: not indicated Explain why admission is indicated or not indicated:: Patient is stable for discharge Admission Request Was there a request for admission?: No Disposition Plan Disposition Plan: Discharge Discharge Attestation Discharge Attestation: The patient and all family members were given an opportunity to ask questions and understood the discharge instructions. Discharge instructions specifically effects, indications for sooner follow up or return to the emergency department, and the expected course of current diagnosis. Patient condition: Stable Discharge Plan Plan Patient Disposition: HOME (Self Care) Discharge Disposition comment: Stable Prescriptions/Referrals Prescriptions/Med Rec: New acetaminophen [Pain Relief ES (acetaminophen)] 500 mg tablet 500 mg PO Q6H PRN (Reason: pain) Qty: 60 0RF No Action metformin 1,000 mg tablet 1,000 mg PO BID Edarbi 40 mg tablet 40 mg PO BID Tradjenta 5 mg tablet 5 mg PO DAILY docusate sodium [Colace] 100 mg capsule 100 mg PO BID Qty: 40 0RF hydrocodone-acetaminophen 5-325 mg tablet 1 tab PO Q6H MDD 4 PRN (Reason: pain (scale score 7-10)) Qty: 10 0RF ibuprofen 600 mg tablet 600 mg PO Q8H PRN (Reason: pain (scale score 4-6)) Qty: 15 0RF Xarelto 20 mg tablet 20 mg PO Q24H Linzess 72 mcg PO DAILY Rx Instructions: take 30min before first meal potassium chloride 20 mEq tablet,ER particles/crystals 20 meq PO DAILY ondansetron 8 mg tablet,disintegrating 8 mg PO Q8H PRN (Reason: nausea and vomiting) Referrals: Betsy Hodges PA-C [Primary Care Provider] - In 1 week Problem List Clinical Impression: Headache Patient/Caregiver Discharge Instructions Education Materials: Self-Care for Headaches Additional Instructions: Follow-up with your primary care physician in 24 to 48 hours. Return to the ED for any new or worsening symptoms. Print Language: Stateless Stand Alone Forms: Brittany Award Info., Patient Portal Info Letter PA/WES Supervising Physician PA/WES Supervising Physician: Dr Salinas
[2024-08-17] MEDS: ONDANSETRON ODT 4 MG TABRAP PO (19:53)
[2024-08-17] MEDS: KETOROLAC INJ 60 MG/2 ML VIAL 30 MG IM (19:53)
== END 2024-08-17 23:40 | disposition home or self-care (01) ==
PROVIDERS: Nurse Practitioner Primary Care; Emergency Provider Family Medicine; PCP Physician Assistant
DX: R51.9 Headache, unspecified (principal); R53.1 Weakness; R42 Dizziness and giddiness
CPT/HCPCS: 36415; 70450; 70546; 70548; 70553; 80053; 85025; 85610; 85730; 96372; 99285; A9579; J1885; Q0162

== ENCOUNTER 2024-08-26 11:06 | Outpatient (RCR) | payer MEDICAID, SELFPAY ==
[2024-08-20 12:28] LABS: Basophils % (Auto) 0 % (0-2.5); Eosinophils % (Auto) 0 % (0-10); Hematocrit 29.5 % (41.0-53.0); Hemoglobin 9.8 g/dL (13.5-16.0); Immature Granulocytes % (Auto) 0 % (0-0); Lymphocytes % (Auto) 22 % (10-50); Mean Corpuscular HGB Conc 33.2 g/dl (31.0-37.0); Mean Corpuscular Hemoglobin 28.9 pg (25.0-35.0); Mean Corpuscular Volume 87 fL (80-100); Monocytes # (Auto) 0.5 Thou/mm3 (0.0-0.8); Monocytes % (Auto) 11 % (0-12); Neutrophils % (Auto) 67 % (37-80); Nucleated Red Blood Cell % 0 /100 WBC (0); Platelet Count 300 Thou/mm3 (140-440); RDW Standard Deviation 48.8 fL (35.1-43.9); Red Blood Count 3.39 Miln/mm3 (4.50-5.90); White Blood Count 4.6 Thou/mm3 (3.8-10.6)
[2024-08-20 12:51] LABS: Alanine Aminotransferase 10 U/L (10-49); Albumin, Serum 3.9 gm/dL (3.4-4.8); Alkaline Phosphatase 106 U/L (46-116); Anion Gap 11 (7-16); Aspartate Amino Transferase 16 U/L (0-34); BUN/Creatinine Ratio 10 Ratio (12-20); Bilirubin,Total 0.7 mg/dL (0.3-1.2); Blood Urea Nitrogen 9 mg/dL (9-23); Calcium 9.2 mg/dL (8.3-10.6); Calcium (Corrected) 9.3 mg/dL (8.5-10.1); Carbon Dioxide 28.6 mMol/L (20.0-31.0); Chloride 93 mMol/L (98-107); Creatinine (Component) 0.9 mg/dL (0.6-1.3); Glucose 306 mg/dL (74-106); Osmolality,Calculated 277 (275-295); Potassium 2.9 mMol/L (3.4-5.1); Sodium 133 mMol/L (136-145); Total Protein 7.9 gm/dL (5.7-8.2); eGFR > 60 See Note
[2024-08-20 13:39] LABS: Carcinoembryonic Antigen 197.8 ng/mL (0.0-5.0)
== END 2024-09-07 23:59 | disposition home or self-care (01) ==
LOC: SCTC 11:06
PROVIDERS: PCP Physician Assistant; Referring Provider Physician Assistant; Visit Provider Internal Medicine Hematology & Oncology
DX: C18.0 Malignant neoplasm of cecum (principal); I26.99 Other pulmonary embolism without acute cor pulmonale; Z79.01 Long term (current) use of anticoagulants; R91.1 Solitary pulmonary nodule; K74.60 Unspecified cirrhosis of liver; R18.8 Other ascites
CPT/HCPCS: 36591; 80053; 82378; 85025; 96360; A4216; J1642; J7040

== ENCOUNTER 2024-08-26 12:08 | Inpatient (IN) | payer MEDICAID, SELFPAY ==
[2024-08-26] VITALS (38 sets, daily range): BP systolic 127–192; BP diastolic 81–122; PULSE 82–142; RESP 6–100; TEMP 36.3–36.9; O2SAT 95–100; BMI 22.6; BMI 20.5
--- NOTE | 2024-08-26 12:26 | XR_ITS ---
Examination: CT brain head without contrast. 2-D sagittal coronal reconstructions Date and time of exam:August 26, 2024 1357 hours Comparison August 17, 2024 INDICATIONS: Altered mental status beginning one week ago CTDI: vol (mGy):51 DLP: (mGycm):1058 Technique: Multiple CT axial sections of the brain have been obtained, 5 mm slice thickness. Contrast has not been administered. 2-D sagittal, coronal reconstructions have been obtained Low dose protocols were performed. One or more of the following dose reduction techniques were used; automated exposure control, adjustment of the mA and/or KV according to patient size, use of iterative reconstruction technique. Findings: No significant ventricular enlargement. Intra-axial or extra-axial hemorrhage density is not seen. No mass effect or midline shift Basal cisterns are not remarkable. Fourth ventricle is midline. Cranial vault intact. Impression: Negative for acute hemorrhage, mass effect or midline shift Advise clinical correlation follow-up accordingly
--- NOTE | 2024-08-26 12:26 | EKG_ITS ---
[facility] Test Date: 2024-08-26 Pat Name: ROBBY HERZOG Department: Room: - Gender: Male [employer] [place]: : 1960 Requested By: Bruno De La Rosa Order Number: [id number] Reading MD: Bruno De La Rosa Measurements Intervals [place] Rate: 92 P: 59 NV: 129 QRS: 46 QRSD: 104 T: 49 QT: 383 QTc: 476 Interpretive Statements SINUS RHYTHM No previous ECG available for comparison /[id number]/[email or web address]/[id number]
--- NOTE | 2024-08-26 12:27 | XR_ITS ---
Examination: AP chest single view Technique one AP portable upright chest single view Date and time: August 26, 2024 1244 hours INDICATIONS: Coughing fever sepsis today. FINDINGS: Normal heart size No lobar pneumonia Right internal jugular Port-A-Cath tip right atrium satisfactory position IMPRESSION: No pneumonia identified
--- NOTE | 2024-08-26 12:28 | PD.EDADULT ---
ED General RME/HPI General Chief complaint: Headache Stated complaint: TACHYCARDIC, UNABLE TO WALK, SEVERE HENLEY Time Seen by Provider: 08/26/24 12:26 Arrival date/time: 08/26/24 12:08 CC: Altered mental status HPI patient presents to the ER from the [facility] with family member said his last normal was 1 week ago. The patient is now no longer amatory which he is normally ambulatory. Members do report a history of elevated ammonia level patient has a history of colon cancer was at the cancer treatment center who rolled him over for altered mental status the patient, when prompted, answers his name and birthdate states he is only complaining of a headache however family states for the last 5 to 6 days he has not been ambulatory which is not baseline for him patient is following commands. He is opening his eyes on command. Related Data Home Medications ?Medication ?Instructions ?Recorded ?Confirmed azilsartan medoxomil 40 mg tablet 40 mg PO BID 03/29/24 04/24/24 (Edarbi) linagliptin 5 mg tablet (Tradjenta) 5 mg PO DAILY 03/29/24 04/24/24 metformin 1,000 mg tablet 1,000 mg PO BID 03/29/24 04/24/24 Previous Rx's ?Medication ?Instructions ?Recorded docusate sodium 100 mg capsule 100 mg PO BID #40 caps 04/04/24 (Colace) hydrocodone 5 mg-acetaminophen 325 1 tab PO Q6H PRN pain (scale score 04/04/24 mg tablet 7-10) #10 tabs ibuprofen 600 mg tablet 600 mg PO Q8H PRN pain (scale 04/04/24 score 4-6) #15 tabs acetaminophen 500 mg tablet (Pain 500 mg PO Q6H PRN pain #60 tabs 08/17/24 Relief Extra Strength (acetaminophen)) Allergies Allergy/AdvReac Type Severity Reaction Status Date / Time No Known Allergies Allergy Verified 08/17/24 11:41 Review of Systems Review of Systems Narrative Review of Systems: GEN: No fever, no chills, no weight loss EYES: No discharge, no visual changes, no pain HEENT: No ear pain, no congestion, no sore throat PULM: No shortness of breath, no cough, no congestion CV: No chest pain, no dyspnea on exertion, no palpitations GI: No nausea, no vomiting, no diarrhea, no pain, no constipation : No frequency, no urgency, no dysuria MUSC/SKEL: No joint pain, no back pain SKIN: No rash PSYCH: No hallucinations, no depression HEME/LYMPH: No easy bleeding or bruising tendencies NEURO: No weakness, + headache Past Medical History Past Medical History NEUROLOGIC: Negative Neurological Disorders, Cerebrovascular Accident, Transient Ischemic Attacks (TIA), Dementia, Alzheimer's Disease, Parkinson's Disease, Brain Tumor, Meningitis, Seizures, Epilepsy, Multiple Sclerosis, Cerebral Palsy, Amyotrophic Lateral Sclerosis (ALS/Jazmin Gehrig's), Guillain-[place] Syndrome, Spina Bifida, Paralysis, Peripheral Neuropathy, Varela's Palsy, Subdural Hematoma, Migraine, Head Trauma, Spinal Cord Injury or Traumatic Brain Injury CARDIAC: Positive Cardiac Disorders and Hypertension; Negative Myocardial Infarction, Cardiac Arrhythmia, Atrial Fibrillation, Angina, Heart Murmur, Coronary Artery Disease, Atherosclerotic Heart Disease, Peripheral Vascular Disease, Aneurysm, Congestive Heart Failure, Congenital Heart Disease, Valvular Heart Disease, Rheumatic Fever, Cardiomyopathy, Edema, Pericarditis, Cellulitis, Deep Vein Thrombosis, Hypotension or Varicose Veins RESPIRATORY: Negative Chronic Obstructive Pulmonary Disease (COPD), Asthma, Bronchitis, Emphysema, Pneumonia, Pulmonary Fibrosis, Cystic Fibrosis, Tuberculosis, Pulmonary Embolism, Pulmonary Edema or Sleep Apnea GASTROINTESTINAL: Positive Colorectal Cancer; Negative Gastrointestinal Disorders, Hepatitis, Cirrhosis, Pancreatitis, Celiac Disease, Gall Bladder Disease, Gastrointestinal Bleed, Esophageal Varices, Prince's Esophagus, Colitis, Ulcerative Colitis, Diverticulitis, Diverticulosis, Ulcer, Irritable Bowel, Crohn's Disease, Obstructive Bowel, Hiatal Hernia, Hemorrhoids, Gastroesophageal Reflux Disease or Obesity GENITOURINARY: Negative Genitourinary Disorders, Renal Disease, Kidney Stones, Polycystic Kidney Disease, Neurogenic Bladder, Inguinal Hernia, Dialysis, Prostate Cancer or Benign Prostatic Hyperplasia REPRODUCTIVE: Negative Fibroids, Genital Herpes, Syphilis or Testicular Cancer MUSCULOSKELETAL: Negative Musculoskeletal Disorders, Muscular Dystrophy, Myasthenia Gravis, Marfan's Syndrome, Bone Cancer, Arthritis, Rheumatoid Arthritis, Osteoporosis, Degenerative Disk Disease, Gout, Scoliosis, Carpal Tunnel Syndrome, Fibromyalgia, Fractures, Degenerative Joint Disease, Osteomyelitis or Poliovirus ENT: Negative Cataracts, Glaucoma, Blind, Retinal Detachment, Macular Degeneration, Ear Infection, Deafness, Head Trauma or Eye Prosthesis ENDOCRINE: Positive Endocrine Disorders and Diabetes Mellitus Type 2; Negative Diabetes Mellitus Type 1, Hypoglycemia, Hyperthyroidism, Hypothyroidism, Parathyroid Disease, Pituitary Disease, Systemic Lupus Erythematosus, Syndrome of Inappropriate Antidiuretic Hormone (SIADH) or Graves' Disease HEMATOLOGIC: Negative Blood Disorders, Anemia, Leukemia, Hemophilia, Thalassemia, Sickle Cell Disease or Clotting Problems PSYCHO/SOCIAL: Negative Psychiatric Problems, Schizophrenia, Recreational Drug Use, Bipolar Disorder, Depression, Anxiety, Behavior Problems, Self-Mutilation, Attention Deficit Disorder, Attention Deficit Hyperactivity Disorder, Depression, Post Traumatic Stress Disorder or Eating Disorder OTHER HISTORY: Positive Hospitalization (surgery), Cancer (COLON CANCER) and Colorectal Cancer; Negative Autoimmune Disease, Down Syndrome, Autism, Developmental Delay, Shingles, Falls, Blood Transfusions, Blood Transfusion Reaction, Anesthesia Reactions, Organ Transplant, Chemotherapy, Radiation Therapy, Hyperbaric Therapy, MRSA, VRSA, Vancomycin-Resistant Enterococci, Human Immunodeficiency Virus (HIV), Chicken Pox, Measles, Mumps, Rubella ([place] Measles), Pertussis, Clostridium Difficile, Cervical Cancer, Lung Cancer, Ovarian Cancer, Prostate Cancer or Testicular Cancer Family History FAMILY HISTORY: Positive Family Cardiac Disorders; Negative Family Psychiatric Problems, Family Respiratory Disorders, Family Gastrointestinal Problems, Family Cancer, Family Surgery or Family Anesthesia Reaction Surgical History SURGICAL: Positive Abdominal Surgery and Bowel Surgery (bowel resection); Negative Cardiac Surgery, Open Heart Surgery, Coronary Artery Bypass Graft, Valve Replacement, Vascular Surgery, Coronary Stent, Cardiac Catheterization, Pacemaker, Angiogram, Auto Implanted Cardiovert Defib, Carotid Endarterectomy, Endocrine Surgery, Thyroidectomy, Ear Surgery, Tympanostomy Tube, Eye Surgery, Nose Surgery, Oral Surgery, Tonsillectomy, Adenoidectomy, Cochlear Implant, Corneal Transplant, Throat Surgery, Tracheostomy, Gastric Bypass Surgery, Gastrostomy, Nephrectomy, Transurethral Resection, Joint Replacement, Amputation, Open Reduction Internal Fixation, Arthroscopy, Neurologic Surgery, Brain Shunt, Mastectomy, Lumpectomy, Hysterectomy, Tubal Ligation, Vasectomy or Organ Transplant Social History SMOKING STATUS: Never smoker ED Exam Narrative Physical exam: [General: Altered mental status but appears not in any acute distress Head, normocephalic eyes:HEENT: Pupils are PERRLA EOMs intact mouth pink dry membranes uvula is midline swallow symmetrical. All the subsystems HEENT are normocephalic Neck is supple nontender Chest equal chest rise nontender to palpation Respiratory: Clear to auscultation no wheezes crackles or rubs CV: Rate rhythm is regular, tachycardic, no murmurs rubs or clicks Abdomen is habitus soft nontender no masses positive bowel sounds all 4 quadrants Back: No CVA tenderness no spinous process tenderness from cervical spine thoracic and lumbar spine Skin: Intact no petechiae rash induration ulceration or crepitus Extremities: Moving all extremity against resistance cap refill less than 2 seconds neurosensory intact. No lower extremity edema Neuro: Awake alert oriented x2, person and place, Glascow coma 15 no focal deficits] Course Course Course Narrative: Reevaluated this patient at 1722 shows that he is actually had mild deterioration in his neurologic status with slurred words not and slower to respond to questions requires tactile stimulation. Patient reassessed by myself and Dr. Galindo, we do not feel that this hypertensive encephalopathy, of concern is the patient's declining mental status. Consult to Dr. Louie who agrees patient needs to be admitted for MRI and further workup. Quality Measures none Orders Category Date Time Status Automobile Glass Technician STAT Care 08/26/24 12:26 Active Continuous Pulse Oximetry STAT Care 08/26/24 12:26 Completed EKG (ED ONLY) *Do not use* NOW Care 08/26/24 12:26 Completed In and Out Catheter X1PRN Care 08/26/24 12:26 Completed Insert IV NOW Care 08/26/24 12:26 Active NPO STAT Care 08/26/24 12:26 Active Strict Intake and Output Routine Care 08/26/24 12:26 Ordered Consult to Gastroenterology Stat Cons 08/26/24 17:[address] head/brain wo con Stat Exams 08/26/24 12:26 Completed EKG (ED Only) Stat Exams 08/26/24 12:26 Draft XR chest 1V SEPSIS PROTOCOL Stat Exams 08/26/24 12:27 Completed ABG [Arterial Blood Gas] Stat Lab 08/26/24 17:27 Completed Ammonia Stat Lab 08/26/24 12:20 Completed B-Type Natriuretic Peptide Stat Lab 08/26/24 12:20 Completed Blood Culture (Lab) Stat Lab 08/26/24 12:51 Received CBC Stat Lab 08/26/24 12:20 Completed Comprehensive Metabolic Panel Stat Lab 08/26/24 12:20 Completed LDH (Lactate Dehydrogenase) Stat Lab 08/26/24 12:20 Completed Lactate (Lactic Acid) Stat Lab 08/26/24 12:20 Completed Lactic Acid, 3 HR Stat Lab 08/26/24 16:28 Completed Lipase Stat Lab 08/26/24 12:20 Completed Magnesium Stat Lab 08/26/24 12:20 Completed Partial Thromboplastin Time Stat Lab 08/26/24 12:20 Completed Phosphorous Stat Lab 08/26/24 12:20 Completed Procalcitonin Stat Lab 08/26/24 12:20 Completed Prothrombin Time with INR Stat Lab 08/26/24 12:20 Completed Troponin I Stat Lab 08/26/24 12:20 Completed Urinalysis Stat Lab 08/26/24 13:14 Completed Urine Culture Stat Lab 08/26/24 13:17 Received KCL 10% Liq UDC 15 ML Med 08/26/24 17:07 Discontinued 40 meq GT X1 ONE Sodium Chloride 0.9% 500 ml [Ns] 500 ml Med 08/26/24 14:02 Discontinued IV 999 mls/hr hydrALAZINE INJ [Apresoline Inj] Med 08/26/24 15:11 Discontinued 10 mg IV X1 ONE Oxygen Delivery NOW RT 08/26/24 12:26 Active Vital Signs Vital signs: Vital Signs Temperature 97.8 F 08/26/24 12:11 Pulse Rate 111 H 08/26/24 12:11 Respiratory Rate 20 08/26/24 12:11 Blood Pressure 192/116 H 08/26/24 12:11 Pulse Oximetry (%) 99 08/26/24 12:11 Oxygen Delivery Method Room Air 08/26/24 12:11 Discharge Plan Plan Patient Disposition: Admit Acute Care w/in Hospital Patient condition on transfer: Stable Problem List Clinical Impression: Altered mental status 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 Coags within acceptable limits Chemistry shows sodium 134 potassium of 2.9 chloride of 89 CO2 of 31.7 no BUN and creatinine abnormality LDH of 213 BMP is negative Lipase is negative Pro-John is 0.09 Urine is negative for a UTI. EKG Interpretation EKG #1: EKG Interpretation: EKG performed at 1241 shows a ventricular of 92 [place] interval 129 QRS of 104 QTc of 433 this is normal sinus rhythm. Labs Lab(s) Interpretation(s): CBC shows no acute leukocytosis this is stable anemia of a hemoglobin 11.9 a crit of 35.0. Platelet count of 352. Coags within acceptable limits CMP shows sodium 134 potassium of 2.9 chloride of 89 CO2 of 31.7 gap of 13 BUN and creatinine within acceptable limits. Glucose at 195. No transaminitis or T. bili elevation Ammonia is less than 10. Troponin is negative BNP is unremarkable. Urine shows 3+ glucose 2+ ketones no bacteria no leukocyte esterase. Imaging Imaging interpretation: interpreted by me Imaging Interpretation(s): Chest x-ray is interpreted by me and read by radiology as negative for any acute finding. CT head is negative for any acute finding requires emergent or immediate intervention. Medication Administration(s) Medication Administration History Acetaminophen (Acetaminophen 325 Mg Tablet) 650 mg PO Q6H PRN PRN Reason: Fever >101.5 Stop: 09/25/24 17:49 Acetaminophen (Acetaminophen 325 Mg Tablet) 1,000 mg PO Q6H PRN PRN Reason: PAIN SCALE 1-3 (mild Stop: 09/25/24 17:49 Dextrose (Dextrose 50%-Water Inj 50 Ml Syringe) 25 ml IV Q15MIN PRN PRN Reason: BG 50-70 responsive npo pt Stop: 09/25/24 18:12 Dextrose (Dextrose 50%-Water Inj 50 Ml Syringe) 50 ml IV Q15MIN PRN PRN Reason: BG <50 OR BG <70 & pt unresponsive Stop: 09/25/24 18:12 Glucagon (Glucagon Inj 1 Mg Vial) 1 mg IM Q15MIN PRN PRN Reason: BG <70, and no IV access Hydralazine HCl (Hydralazine Inj 20 Mg/Ml Vial) 10 mg IV Q6HR PRN PRN Reason: SBP>185 Stop: 09/25/24 17:55 Insulin Human Lispro (Insulin Lispro (Admelog) 1 Unit/0.01 Ml Unit) 0 unit SC AC HCELITA; Protocol Stop: 09/26/24 07:29 Lactulose (Lactulose Syrup 20 Gm/30 Ml Udc) 20 gm PO QDAY CHELITA; Protocol Stop: 09/26/24 08:59 Losartan Potassium (Losartan Potassium 25 Mg Tablet) 25 mg PO QDAY CHELITA Stop: 09/26/24 08:59 Ondansetron HCl (Ondansetron Inj 2 Mg/Ml Inj 2 Ml) 4 mg IV Q6H PRN; Protocol PRN Reason: NAUSEA OR VOMITING Stop: 09/25/24 17:49 Rivaroxaban (Rivaroxaban 10 Mg Tablet) [facility] Stop: 09/17/24 08:59 Discontinued Medications Hydralazine HCl (Hydralazine Inj 20 Mg/Ml Vial) 10 mg IV X1 ONE Stop: 08/26/24 15:12 Last Admin: 08/26/24 15:49 Dose: 10 mg Documented By: RADHA Sodium Chloride (Ns) 500 mls @ 999 mls/hr IV .Q31M ONE Stop: 08/26/24 14:32 Last Infusion: 08/26/24 14:54 Dose: Infused Documented By: Admin: 08/26/24 14:13 Dose: 999 mls/hr Documented By: RADHA Potassium Chloride (Kcl Ivpb) 10 meq in 100 mls @ 100 mls/hr IV Q1H CHELITA Stop: 08/26/24 22:29 Last Admin: 08/26/24 21:49 Dose: 100 mls/hr Documented By: Infusion: 08/26/24 21:08 Dose: Infused Documented By: Admin: 08/26/24 20:08 Dose: 100 mls/hr Documented By: Infusion: 08/26/24 19:53 Dose: Infused Documented By: Admin: 08/26/24 18:53 Dose: 100 mls/hr Documented By: RADHA Lorazepam (Lorazepam 2 Mg/Ml Vial) 1 mg IVP X1 ONE Stop: 08/26/24 19:44 Last Admin: 08/26/24 20:08 Dose: 1 mg Documented By: FANY Potassium Chloride (Potassium Chloride 10% 20 Meq/15 Ml Udc) 40 meq GT X1 ONE Stop: 08/26/24 17:08 Last Admin: 08/26/24 17:44 Dose: 40 meq Documented By: RADHA
[2024-08-26 12:53] LABS: Lactate (Lactic Acid) 2.3 mMol/L (0.4-2.0)
[2024-08-26 13:02] LABS: Basophils % (Auto) 0 % (0-2.5); Eosinophils % (Auto) 0 % (0-10); Hemoglobin 11.9 g/dL (13.5-16.0); Immature Granulocytes % (Auto) 0 % (0-0); Immature Granulocytes Auto 0.01 Thou/mm3 (0.00-0.00); Lymphocytes # (Auto) 0.9 Thou/mm3 (1.0-4.8); Lymphocytes % (Auto) 19 % (10-50); Mean Corpuscular Hemoglobin 28.9 pg (25.0-35.0); Mean Corpuscular Volume 85 fL (80-100); Monocytes # (Auto) 1.3 Thou/mm3 (0.0-0.8); Monocytes % (Auto) 25 % (0-12); Neutrophils # (Auto) 2.8 Thou/mm3 (1.8-7.7); Neutrophils % (Auto) 56 % (37-80); Nucleated Red Blood Cell % 0 /100 WBC (0); Platelet Count 352 Thou/mm3 (140-440); RDW Standard Deviation 50.4 fL (35.1-43.9); Red Blood Count 4.12 Miln/mm3 (4.50-5.90)
[2024-08-26 13:10] LABS: Partial Thromboplastin Time 24.8 Seconds (22.0-36.0)
[2024-08-26 13:17] LABS: Ammonia < 10 uMol/L (11-32)
[2024-08-26 13:27] LABS: Collection Type, Urine Clean Catch; Squamous Epithelial Cell,Urine 0 /hpf (0-5)
[2024-08-26 13:36] LABS: Alanine Aminotransferase 21 U/L (10-49); Albumin, Serum 4.1 gm/dL (3.4-4.8); Alkaline Phosphatase 113 U/L (46-116); Anion Gap 13 (7-16); Aspartate Amino Transferase 26 U/L (0-34); BUN/Creatinine Ratio 14 Ratio (12-20); Bilirubin,Total 0.9 mg/dL (0.3-1.2); Blood Urea Nitrogen 10 mg/dL (9-23); Calcium 9.5 mg/dL (8.3-10.6); Calcium (Corrected) 9.5 mg/dL (8.5-10.1); Carbon Dioxide 31.7 mMol/L (20.0-31.0); Chloride 89 mMol/L (98-107); Creatinine (Component) 0.7 mg/dL (0.6-1.3); Estimated Creatinine Clearance 89.3 mL/min (>60); Globulin 4.3 gm/dL (2.3-3.5); Glucose 195 mg/dL (74-106); LDH (Lactate Dehydrogenase) 213 U/L (120-246); Lipase 24 U/L (12-53); Osmolality,Calculated 272 (275-295); Phosphorous 3.5 mg/dL (2.4-5.1); Potassium 2.9 mMol/L (3.4-5.1); Procalcitonin 0.09 ng/ml (0.0-0.49); Sodium 134 mMol/L (136-145); Total Protein 8.4 gm/dL (5.7-8.2); Troponin I < 0.020 ng/mL (0.0-0.045); eGFR > 60 See Note
[2024-08-26 13:54] LABS: Bilirubin,Urine Negative (Negative); Blood,Urine Negative (Negative); Clarity,Urine Clear (Clear/Hazy); Color,Urine Lt-Yellow (Lt Yel-Yel); Glucose, Urine 3+ (Negative); Ketones,Urine 2+ (Negative); Leukocyte Esterase,Urine Negative (Negative); Nitrite,Urine Negative (Negative); PH,Urine 6.5 (5.0-7.0); Protein,Urine Trace (Neg - Trace); RBC,Urine 2 /hpf (0-3); Specific Gravity,Urine 1.013 (1.001-1.035); Urobilinogen,Urine Negative mg/dL (0.0-1.0); WBC,Urine 1 /hpf (0-5)
[2024-08-26 14:07] LABS: B-Type Natriuretic Peptide 30 pg/mL (0-100)
[2024-08-26] MEDS: SODIUM CHLORIDE 0.9% 500 ML 500 ML 999 ML IV (14:13)
[2024-08-26 15:48] LABS: Reflex Lactate? Y
[2024-08-26] MEDS: hydrALAZINE INJ 20 MG/ML VIAL 10 MG IV (15:49)
[2024-08-26 16:44] LABS: Lactic Acid, 3 HR 1.6 mMol/L (0.4-2.0)
[2024-08-26 17:44] LABS: Allen Test Not Performed; Base Excess 7 (-3-3); HCO3 30 mEq/L (20-26); Inspired Oxygen, FIO2 98 %; O2 Saturation 99 % (91-98); PCO2 35 mmHg (32.0-48.0); PO2 95 mmHg (83-108); Puncture Site Right Brachial; pH, Arterial 7.54 (7.35-7.45)
[2024-08-26] MEDS: POTASSIUM CHLORIDE 10% 20 MEQ/15 ML UDC 40 MEQ GT (17:44)
--- NOTE | 2024-08-26 18:00 | ESHP_ITS ---
Documentation for date of: 08/26/24 [facility] History of Present Illness Chief complaint: AMS History of present illness: History from chart review as patient has altered mental status. 64-year-old male with a history of hypertension, diabetes, colon cancer, pulmonary embolism on xarelto, liver cirrhosis presented to the ED from the cancer treatment center due to altered mental status. Per family last normal was 1 week ago. Of note patient does have history of elevated ammonia levels in the past. Patient only answers name and birthdate and is complaining of headache after having a blood draw. ED course: ED vitals BP 192/116, HR 111, RR 20, O2 sat 99% on room air. ED labs: Normocytic anemia, hypokalemia, hypochloremia, elevated bicarb, glucose 195, ammonia less than [address] negative chest x-ray negative EKG shows sinus rhythm. PMHx: As above SX Hx: Right colectomy Social Hx: Denies smoking, denies illicit substances denies alcohol use Allergies: NKDA Review of Systems Review of Systems ROS Unobtainable: unobtainable due to mental status Exam Vital Signs Temp Pulse Resp BP Pulse Ox O2 Del Method 98.4 F 117 H 14 150/93 H 99 Room Air 08/26/24 16:15 08/26/24 17:45 08/26/24 17:45 08/26/24 17:45 08/26/24 17:45 08/26/24 16:15 Narrative Exam Physical Exam GENERAL: NAD, AAOx2, nonsensical speech HEENT: dry mucosa. Eyes open, symmetrical, & clear CARDIO: Heart RRR, no obvious murmurs PULM: No noted coughing/dyspnea CTA B/L, no R/W/R GI: Abdomen soft, nondistended, no pain on palpation. BSx4 SKIN/MSK/EXT: No wounds/rashes/edema/amputations, no pain on palpation. Pedal pulses present B/L NEURO: able to move all 4 extremities Results: Labs 08/29/24 11:25 08/29/24 11:25 Labs: Short CBC 08/26/24 Range/Units 12:20 WBC 5.0 (3.8-10.6) Thou/mm3 Hgb 11.9 L D (13.5-16.0) g/dL Hct 35.0 L (41.0-53.0) % Plt Count 352 D (140-440) Thou/mm3 BMP 08/26/24 12:20 Sodium 134 L Potassium 2.9 L Chloride 89 L Carbon Dioxide 31.7 H BUN 10 Creatinine 0.7 Glucose 195 H Calcium 9.5 Cardiac Enzymes 08/26/24 Range/Units 12:20 Troponin I < 0.020 (0.0-0.045) ng/mL Liver Function 08/26/24 Range/Units 12:20 Total Bilirubin 0.9 (0.3-1.2) mg/dL AST 26 (0-34) U/L ALT 21 (10-49) U/L Alkaline Phosphatase 113 (46-116) U/L Albumin 4.1 (3.4-4.8) gm/dL Urine 08/26/24 Range/Units 13:14 Urine Color Lt-Yellow (Lt Yel-Yel) Urine Clarity Clear (Clear/Hazy) Urine pH 6.5 (5.0-7.0) Ur Specific [place] 1.013 (1.001-1.035) Urine Protein Trace (Neg - Trace) Urine Glucose (UA) 3+ A (Negative) ABG Interpretation ABG results: 08/26/24 17:27 ABG pH 7.54 H ABG pCO2 35 ABG pO2 95 ABG HCO3 30 H ABG O2 Saturation 99 H ABG Base Excess 7 H Quality Measures Quality Measures VTE prophylaxis Medications Home Medications and Allergies Home Medications ?Medication ?Instructions ?Recorded ?Confirmed ?Type azilsartan medoxomil 40 mg tablet 40 mg PO BID 4 08/27/24 History (Edarbi) linagliptin 5 mg tablet (Tradjenta) 5 mg PO DAILY 03/1108/27/24 History metformin 1,000 mg tablet 1,000 mg PO BID 03/29/24 History Linzess 72 mcg PO DAILY 08/27/24 History ondansetron 8 mg disintegrating 8 mg PO Q8H PRN nausea and vomiting 08/27/24 08/27/24 History tablet potassium chloride 20 mEq 20 meq PO DAILY 08/27/24 History tablet,extended release(part/cryst) rivaroxaban 20 mg tablet (Xarelto) 20 mg PO Q24H 08/2708/27/24 History Allergies Allergy/AdvReac Type Severity Reaction Status Date / Time No Known Allergies Allergy Verified 08/17/24 11:41 Visit Medications Acetaminophen (Acetaminophen 325 Mg Tablet) 650 mg PO Q6H PRN PRN Reason: Fever >101.5 Stop: 09/25/24 17:49 Acetaminophen (Acetaminophen 325 Mg Tablet) 1,000 mg PO Q6H PRN PRN Reason: PAIN SCALE 1-3 (mild Stop: 09/25/24 17:49 Hydralazine HCl (Hydralazine Inj 20 Mg/Ml Vial) 10 mg IV Q6HR PRN PRN Reason: SBP>185 Stop: 09/25/24 17:55 Lactulose (Lactulose Syrup 20 Gm/30 Ml Udc) 20 gm PO QDAY CHELITA; Protocol Stop: 09/26/24 08:59 Ondansetron HCl (Ondansetron Inj 2 Mg/Ml Inj 2 Ml) 4 mg IV Q6H PRN; Protocol PRN Reason: NAUSEA OR VOMITING Stop: 09/25/24 17:49 Discontinued Medications Hydralazine HCl (Hydralazine Inj 20 Mg/Ml Vial) 10 mg IV X1 ONE Stop: 08/26/24 15:12 Last Admin: 08/26/24 15:49 Dose: 10 mg Sodium Chloride (Ns) 500 mls @ 999 mls/hr IV .Q31M ONE Stop: 08/26/24 14:32 Last Infusion: 08/26/24 14:54 Dose: Infused Potassium Chloride (Potassium Chloride 10% 20 Meq/15 Ml Udc) 40 meq GT X1 ONE Stop: 08/26/24 17:08 Last Admin: 08/26/24 17:44 Dose: 40 meq Assessment & Plan Plan 64-year-old male with a history of hypertension, diabetes, colon cancer, liver cirrhosis presented to the ED from the cancer treatment center due to altered mental status. #Acute encephalopathy unknown etiology #Hypertensive urgency CT head negative negative meningeal signs?low suspicion for infectious etiology Patient did present with systolic blood pressure in the 200s tachycardia Patient does have previous history of elevated ammonia levels on prior admissions however ammonia levels negative at this time - hydralazine 10mg q6hr prn SBP>185 - slow decrease in BP goal SBP 150 - monitor telemetry - Cx ordered #Hx of Pulmonary embolism found on CTA in July was put on xarelto by [facility] on room air at this time, denies sob +chest pain - continue xarelto 20mg qday #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 SSI ? Hypoglycemia protocol in place Health Maintenance: Disposition: medtele, altered mental status Fluids: None Feeding: NPO swallow eval Thrombo prophylaxis: xarelto Gastric Ulcer prophylaxis: none CODE STATUS: Full code Case discussed with my senior Dr. Dawkins and my attending Dr. Maria Fernanda Woods MD PGY-1 LPatient examined and case discussed with the team including attending physician. Note reviewed, I agree with the care plan as documented. Mr Chavez is a 64 year old male admitted for acute metabolic encephalopathy of unknown etiology and hypertensive urgency, now resolved. CT head negative for acute findings. Exam negative for meningeal signs?low suspicion for infectious etiology. Will follow up with Oncologgy Dr Felipe re: aby recommendations. Possible iatrogenic drug effect. Please refer to the note above for further details. - Israel Dawkins MD, PGY 2 Disclaimer: The document may contain phonetic/typographic errors due to voice recognition software. These errors are purely due to imperfections in the software program and should not be misconstrued in any way to compromise the substance of the patient's medical care during this visit. Attending Provider Attestation/Addendum 64-year-old male with multiple comorbidities including hypertension, hyperlipidemia, colon adenocarcinoma with possible mets to the lungs currently being followed up at the cancer [facility] and pulmonary embolus on Xarelto who presented with altered mentation. Furthermore, patient underwent CT head with no evidence of any acute intracranial abnormality and patient does not have any fevers or neck stiffness to suggest an encephalomeningitis. Upon initial encounter, patient is alert and oriented to name, date of and place and denies any focal neurologic deficits. The patient noted to have hypertensive urgency/emergency for which we will admit the patient and control blood pressure. Furthermore, patient will be admitted and monitored closely.I reviewed above note and agree with findings and plans. I have also personally examined the patient with medicine team and went over assessment and plan with medical team including manager intern and resident physician.
[2024-08-26] MEDS: POTASSIUM CHL 10 mEq IVPB 10 MEQ/100 ML BAG 100 MEQ IV ×4 (18:53→22:55)
--- NOTE | 2024-08-26 19:23 | PD.RESCONSUL ---
HPI Data of Consult Requesting Physician: Jeanmarie Irving MD Admitting Provider: Jeanmarie Irving MD Attending Provider: Jeanmarie Irving MD Primary Care Provider: Betsy Hodges PA-C Consult Narrative Reason for consult: altered mental status History of present illness: The patient is a 64-year-old male with a previous medical history of stage III colon cancer status post right hemicolectomy on chemotherapy, symptomatic segmental pulmonary embolism on Xarelto, liver cirrhosis, hypertension and diabetes who was brought to the ED due to altered mentation that started approximately 5 to 6 days ago. Most of the history was taken through chart review. In the end of July 2024 patient was diagnosed with pulmonary embolism and was started on Xarelto. A week ago he visited ED due to headache, imaging was negative for bleeding or acute stroke. Initial vitals were blood pressure 192/116, heart rate 111, afebrile, saturating well on room air. Labs showed WBC count 5.0, hemoglobin 11.9, platelets 352, INR 1.0 ABGs showed pH 7.54, TOO892, PO295. Sodium 134, potassium 2.9, chloride 89, carbon dioxide 31.7, anion gap 13, EGFR more than 60, glucose 195, lactic acid 2.3 down trended to 1.6, ammonia less than 10, procalcitonin 0.09. He received hydralazine 10 IV, after that his blood pressure rapidly decreased, he was put in Trendelenburg position and was started on fluids. At the moment of examination MAP is 100. CT head was negative for signs of stroke or acute bleeding. UA was negative for signs of UTI. Patient denies headache, abdominal pain, diarrhea. Social history: unobtainable due to AMS, denies smoking and drinking alcohol Medications: med rec is pending Allergies: unobtainable due to mental status Surgeries: right hemicolectomy cc:: cc: Jeanmarie Irving MD Review of Systems Review of Systems ROS Unobtainable: unobtainable due to mental status Exam Vital Signs Temp Pulse Resp BP Pulse Ox O2 Del Method 97.6 F 119 H 15 162/96 H 100 Room Air 08/26/24 18:37 08/26/24 19:11 08/26/24 19:11 08/26/24 19:00 08/26/24 19:00 08/26/24 18:37 Narrative Exam Gen:Chronically ill-appearing sleeping male, easily aroused. HEENT: NCAT, R slightly>L, reactive to light, bilateral pterygium, EOMI, MMM, anicteric conjunctivae. CVS: normal S1 and S2. RRR. No M/R/G. Resp: CTA B/L. No rhonchi, rales, crackles or wheezing. Abd: soft, non-tender, distended. BS+ in all 4 quadrants. MSK: Good ROM in BUE & BLE. No edema or rash. Neuro: Alert and oriented x1 (not oriented in time and place). Cranial nerves: II through XII grossly intact. Speech and language: Normal with no dysarthria or dysphasia. Motor system: Tone and bulk: Normal: Strength: 5 out of 5 in all 4 extremities; No pronator drift noted. Deep tendon reflexes: 1+ bilaterally symmetrical. Plantar reflex: Downgoing bilaterally. Sensory system: Intact to all modalities of sensation bilaterally. Coordination: does not perform due to AMS. Gait: Not tested. Romberg: Not tested. No signs of meningeal irritation noted. CN II-XII grossly intact. Strength 5/5 in BUE & BLE. Psych: hard to assess due to mental status Results Labs 08/26/24 12:20 08/26/24 22:17 Labs: Short CBC 08/26/24 Range/Units 12:20 WBC 5.0 (3.8-10.6) Thou/mm3 Hgb 11.9 L D (13.5-16.0) g/dL Hct 35.0 L (41.0-53.0) % Plt Count 352 D (140-440) Thou/mm3 BMP 08/26/24 12:20 Sodium 134 L Potassium 2.9 L Chloride 89 L Carbon Dioxide 31.7 H BUN 10 Creatinine 0.7 Glucose 195 H Calcium 9.5 Cardiac Enzymes 08/26/24 Range/Units 12:20 Troponin I < 0.020 (0.0-0.045) ng/mL Liver Function 08/26/24 Range/Units 12:20 Total Bilirubin 0.9 (0.3-1.2) mg/dL AST 26 (0-34) U/L ALT 21 (10-49) U/L Alkaline Phosphatase 113 (46-116) U/L Albumin 4.1 (3.4-4.8) gm/dL Urine 08/26/24 Range/Units 13:14 Urine Color Lt-Yellow (Lt Yel-Yel) Urine Clarity Clear (Clear/Hazy) Urine pH 6.5 (5.0-7.0) Ur Specific [place] 1.013 (1.001-1.035) Urine Protein Trace (Neg - Trace) Urine Glucose (UA) 3+ A (Negative) ABG Interpretation ABG results: 08/26/24 17:27 ABG pH 7.54 H ABG pCO2 35 ABG pO2 95 ABG HCO3 30 H ABG O2 Saturation 99 H ABG Base Excess 7 H Quality Measures Quality Measures VTE prophylaxis Medications Home Medications and Allergies Home Medications ?Medication ?Instructions ?Recorded ?Confirmed ?Type azilsartan medoxomil 40 mg tablet 40 mg PO BID 03/29/24 04/24/24 History (Edarbi) linagliptin 5 mg tablet (Tradjenta) 5 mg PO DAILY 03/29/24 04/24/24 History metformin 1,000 mg tablet 1,000 mg PO BID 03/29/24 08/26/24 History Allergies Allergy/AdvReac Type Severity Reaction Status Date / Time No Known Allergies Allergy Verified 08/17/24 11:41 Visit Medications Acetaminophen (Acetaminophen 325 Mg Tablet) 650 mg PO Q6H PRN PRN Reason: Fever >101.5 Stop: 09/25/24 17:49 Acetaminophen (Acetaminophen 325 Mg Tablet) 1,000 mg PO Q6H PRN PRN Reason: PAIN SCALE 1-3 (mild Stop: 09/25/24 17:49 Dextrose (Dextrose 50%-Water Inj 50 Ml Syringe) 25 ml IV Q15MIN PRN PRN Reason: BG 50-70 responsive npo pt Stop: 09/25/24 18:12 Dextrose (Dextrose 50%-Water Inj 50 Ml Syringe) 50 ml IV Q15MIN PRN PRN Reason: BG <50 OR BG <70 & pt unresponsive Stop: 09/25/24 18:12 Glucagon (Glucagon Inj 1 Mg Vial) 1 mg IM Q15MIN PRN PRN Reason: BG <70, and no IV access Hydralazine HCl (Hydralazine Inj 20 Mg/Ml Vial) 10 mg IV Q6HR PRN PRN Reason: SBP>185 Stop: 09/25/24 17:55 Potassium Chloride (Kcl Ivpb) 10 meq in 100 mls @ 100 mls/hr IV Q1H CHELITA Stop: 08/26/24 22:29 Last Admin: 08/26/24 18:53 Dose: 100 mls/hr Insulin Human Lispro (Insulin Lispro (Admelog) 1 Unit/0.01 Ml Unit) 0 unit SC AC CHELITA; Protocol Stop: 09/26/24 07:29 Lactulose (Lactulose Syrup 20 Gm/30 Ml Udc) 20 gm PO QDAY CHELITA; Protocol Stop: 09/26/24 08:59 Losartan Potassium (Losartan Potassium 25 Mg Tablet) 25 mg PO QDAY CHELITA Stop: 09/26/24 08:59 Ondansetron HCl (Ondansetron Inj 2 Mg/Ml Inj 2 Ml) 4 mg IV Q6H PRN; Protocol PRN Reason: NAUSEA OR VOMITING Stop: 09/25/24 17:49 Discontinued Medications Hydralazine HCl (Hydralazine Inj 20 Mg/Ml Vial) 10 mg IV X1 ONE Stop: 08/26/24 15:12 Last Admin: 08/26/24 15:49 Dose: 10 mg Sodium Chloride (Ns) 500 mls @ 999 mls/hr IV .Q31M ONE Stop: 08/26/24 14:32 Last Infusion: 08/26/24 14:54 Dose: Infused Potassium Chloride (Potassium Chloride 10% 20 Meq/15 Ml Udc) 40 meq GT X1 ONE Stop: 08/26/24 17:08 Last Admin: 08/26/24 17:44 Dose: 40 meq Assessment & Plan Plan The patient is a 64-year-old male with a previous medical history of stage III colon cancer status post right hemicolectomy on chemotherapy, symptomatic segmental pulmonary embolism on Xarelto, liver cirrhosis was brought to the ED due to altered mentation that started approximately 5 to 6 days ago. #Acute encephalopathy Ddx: Metabolic encephalopathy vs hypertensive encephalopathy. Imaging is negative for acute intracranial pathology. Plan: - continue work-up for metabolic encephalopathy - physical therapy eval - medication reconciliation - avoid opiates, benzodiazepines and anticholinergics if possible - urine, blood cultures pending - BP control, 5-15% in the next 23 hours #Stage III colon cancer #Hypertension #T2DM #Pulmonary embolism #Hypokalemia - management per primary team Plan of care discussed with attending Dr. Louie. Karla Robles MD, PGY 1. Attending Provider Attestation/Addendum I personally have seen and examined the patient at the bedside and I agree with the residents findings, assessment and plan of care. patient's altered mental status is most likely related to uncontrolled hypertension-
[2024-08-26] MEDS: LORazepam 2 MG/ML VIAL 1 MG IVP (20:08)
[2024-08-26 22:46] LABS: Albumin, Serum 3.7 gm/dL (3.4-4.8); Anion Gap 11 (7-16); BUN/Creatinine Ratio 13 Ratio (12-20); Blood Urea Nitrogen 9 mg/dL (9-23); Calcium 9.2 mg/dL (8.3-10.6); Calcium (Corrected) 9.4 mg/dL (8.5-10.1); Carbon Dioxide 30.9 mMol/L (20.0-31.0); Chloride 94 mMol/L (98-107); Creatinine (Component) 0.7 mg/dL (0.6-1.3); Estimated Creatinine Clearance 89.3 mL/min (>60); Glucose 179 mg/dL (74-106); Osmolality,Calculated 274 (275-295); Phosphorous 3.4 mg/dL (2.4-5.1); Sodium 136 mMol/L (136-145); eGFR > 60 See Note
[2024-08-26 22:47] LABS: Potassium 2.6 mMol/L (3.4-5.1)
[2024-08-27] VITALS (15 sets, daily range): BP systolic 137–196; BP diastolic 84–112; PULSE 76–120; RESP 14–100; TEMP 36.3–37.2; O2SAT 95–99
[2024-08-27 05:46] LABS: Basophils % (Auto) 0 % (0-2.5); Eosinophils % (Auto) 0 % (0-10); Hematocrit 33.4 % (41.0-53.0); Immature Granulocytes % (Auto) 0 % (0-0); Immature Granulocytes Auto 0.01 Thou/mm3 (0.00-0.00); Lymphocytes # (Auto) 0.8 Thou/mm3 (1.0-4.8); Lymphocytes % (Auto) 20 % (10-50); Mean Corpuscular HGB Conc 32.9 g/dl (31.0-37.0); Mean Corpuscular Hemoglobin 29.5 pg (25.0-35.0); Mean Corpuscular Volume 90 fL (80-100); Monocytes # (Auto) 1.3 Thou/mm3 (0.0-0.8); Monocytes % (Auto) 30 % (0-12); Neutrophils # (Auto) 2.1 Thou/mm3 (1.8-7.7); Neutrophils % (Auto) 50 % (37-80); Nucleated Red Blood Cell % 0 /100 WBC (0); Platelet Count 270 Thou/mm3 (140-440); Red Blood Count 3.73 Miln/mm3 (4.50-5.90); White Blood Count 4.2 Thou/mm3 (3.8-10.6)
[2024-08-27 06:20] LABS: Alanine Aminotransferase 16 U/L (10-49); Albumin, Serum 3.7 gm/dL (3.4-4.8); Albumin/Globulin Ratio 0.9 (1.2-2.2); Alkaline Phosphatase 96 U/L (46-116); Anion Gap 11 (7-16); Aspartate Amino Transferase 21 U/L (0-34); BUN/Creatinine Ratio 13 Ratio (12-20); Bilirubin,Total 0.7 mg/dL (0.3-1.2); Blood Urea Nitrogen 9 mg/dL (9-23); Calcium 9.3 mg/dL (8.3-10.6); Calcium (Corrected) 9.5 mg/dL (8.5-10.1); Carbon Dioxide 31.1 mMol/L (20.0-31.0); Chloride 95 mMol/L (98-107); Creatinine (Component) 0.7 mg/dL (0.6-1.3); Estimated Creatinine Clearance 82.4 mL/min (>60); Glucose 154 mg/dL (74-106); Magnesium 1.9 mg/dL (1.6-2.6); Osmolality,Calculated 275 (275-295); Phosphorous 3.2 mg/dL (2.4-5.1); Sodium 137 mMol/L (136-145); Thyroid Stimulating Hormone 1.54 uIU/mL (0.55-4.78); Total Protein 7.7 gm/dL (5.7-8.2); eGFR > 60 See Note
[2024-08-27 06:25] LABS: Glucose Estimated Average 157 mg/dL (80-131); Hemoglobin A1C 7.1 % Hgb (4.8-6.0)
[2024-08-27 06:35] LABS: Potassium 2.6 mMol/L (3.4-5.1)
[2024-08-27] MEDS: POTASSIUM CHL 10 mEq IVPB 10 MEQ/100 ML BAG 100 MEQ IV ×4 (07:32→11:20)
[2024-08-27] MEDS: LOSARTAN POTASSIUM 25 MG TABLET PO (08:14)
[2024-08-27] MEDS: LACTULOSE SYRUP 20 GM/30 ML UDC PO (08:14)
[2024-08-27] MEDS: Magnesium Sulfate 4 GM Ivpb 4 GM/50 ML BAG IV (08:57)
--- NOTE | 2024-08-27 09:49 | PD.RESPRO ---
Documentation for date of: 08/27/24 Subjective Subjective Interval history: Patient seen today at the bedside found awake, alert, orientedx3. States presenting symptoms resolved denies headache at this time. No overnight events reported. Vitals and labs reviewed. Resume patient's home Edarbi for blood pressure control and resume patient's home potassium supplementation given the patient's hypokalemia. will evaluate repeat renal panel in afternoon. Exam Vital Signs Temp Pulse Resp BP Pulse Ox O2 Del Method 97.9 F 99 20 148/100 H 95 Room Air 08/27/24 08:00 08/27/24 08:14 08/27/24 08:05 08/27/24 08:14 08/27/24 08:00 08/27/24 08:00 Narrative Exam Physical Exam GENERAL: NAD, AAOx3, somnolent HEENT: dry mucosa. Eyes open, symmetrical, & clear CARDIO: Heart RRR, no obvious murmurs PULM: No noted coughing/dyspnea CTA B/L, no R/W/R GI: Abdomen soft, nondistended, no pain on palpation. BSx4 SKIN/MSK/EXT: No wounds/rashes/edema/amputations, no pain on palpation. Pedal pulses present B/L NEURO: able to move all 4 extremities Objective Labs 08/29/24 11:25 08/29/24 11:25 Labs: Laboratory Results - last 24 hr 08/26/24 08/26/24 08/26/24 12:20 13:14 16:28 WBC 5.0 RBC 4.12 L Hgb 11.9 L D Hct 35.0 L MCV 85 MCH 28.9 MCHC 34.0 RDW Std Deviation 50.4 H Plt Count 352 D Neut % (Auto) 56 Lymph % (Auto) 19 Emanuel % (Auto) 25 H Eos % (Auto) 0 Baso % (Auto) 0 Neut # (Auto) 2.8 Lymph # (Auto) 0.9 L Emanuel # (Auto) 1.3 H Eos # (Auto) 0.0 Baso # (Auto) 0.0 Immature Gran # (Auto) 0.01 H Absolute Nucleated RBC 0.00 Immature Gran % 0 Nucleated RBC % 0 PT 11.0 INR 1.0 APTT 24.8 Puncture Site ABG pH ABG pCO2 ABG pO2 ABG HCO3 ABG O2 Saturation ABG Base Excess FiO2 Sodium 134 L Potassium 2.9 L Chloride 89 L Carbon Dioxide 31.7 H Anion Gap 13 BUN 10 Creatinine 0.7 Estim Creat Clear Calc 89.3 eGFR > 60 BUN/Creatinine Ratio [address] Glu mg/dL Hemoglobin A1c Calculated Osmolality 272 L Lactic Acid 2.3 H 1.6 Calcium 9.5 Corrected Calcium 9.5 Phosphorus 3.5 Magnesium 2.0 Total Bilirubin 0.9 AST 26 ALT 21 Alkaline Phosphatase 113 Ammonia < 10 L Lactate Dehydrogenase 213 Troponin I < 0.020 B-Natriuretic Peptide 30 Total Protein 8.4 H Albumin 4.1 Globulin 4.3 H Albumin/Globulin Ratio 1.0 L Lipase 24 Procalcitonin 0.09 TSH Ur Collection Type Clean Catch Urine Color Lt-Yellow Urine Clarity Clear Urine pH 6.5 Ur Specific [place] 1.013 Urine Protein Trace Urine Glucose (UA) 3+ A Urine Ketones 2+ A Urine Blood Negative Urine Nitrite Negative Urine Bilirubin Negative Urine Urobilinogen (Auto) Negative Ur Leukocyte Esterase Negative Urine RBC 2 Urine WBC 1 Ur Squamous Epith Cells 0 Urine Bacteria None 08/26/24 08/26/24 08/27/24 17:27 22:17 04:42 WBC 4.2 RBC 3.73 L Hgb 11.0 L Hct 33.4 L MCV 90 MCH 29.5 MCHC 32.9 RDW Std Deviation 54.0 H Plt Count 270 D Neut % (Auto) 50 Lymph % (Auto) 20 Emanuel % (Auto) 30 H Eos % (Auto) 0 Baso % (Auto) 0 Neut # (Auto) 2.1 Lymph # (Auto) 0.8 L Emanuel # (Auto) 1.3 H Eos # (Auto) 0.0 Baso # (Auto) 0.0 Immature Gran # (Auto) 0.01 H Absolute Nucleated RBC 0.00 Immature Gran % 0 Nucleated RBC % 0 PT INR APTT Puncture Site Right Brachial ABG pH 7.54 H ABG pCO2 35 ABG pO2 95 ABG HCO3 30 H ABG O2 Saturation 99 H ABG Base Excess 7 H FiO2 98 Sodium 136 137 Potassium 2.6 L* 2.6 L* Chloride 94 L 95 L Carbon Dioxide 30.9 31.1 H Anion Gap 11 11 BUN 9 9 Creatinine 0.7 0.7 Estim Creat Clear Calc 89.3 82.4 eGFR > 60 > 60 BUN/Creatinine Ratio 13 13 Glucose [address] Glu mg/dL 157 H Hemoglobin A1c 7.1 H Calculated Osmolality 274 L 275 Lactic Acid Calcium 9.2 9.3 Corrected Calcium 9.4 9.5 Phosphorus 3.4 3.2 Magnesium 1.9 Total Bilirubin 0.7 AST 21 ALT 16 Alkaline Phosphatase 96 Ammonia Lactate Dehydrogenase Troponin I B-Natriuretic Peptide Total Protein 7.7 Albumin 3.7 3.7 Globulin 4.0 H Albumin/Globulin Ratio 0.9 L Lipase Procalcitonin TSH 1.54 Ur Collection Type Urine Color Urine Clarity Urine pH Ur Specific [place] Urine Protein Urine Glucose (UA) Urine Ketones Urine Blood Urine Nitrite Urine Bilirubin Urine Urobilinogen (Auto) Ur Leukocyte Esterase Urine RBC Urine WBC Ur Squamous Epith Cells Urine Bacteria ABG Interpretation ABG results: 08/26/24 17:27 ABG pH 7.54 H ABG pCO2 35 ABG pO2 95 ABG HCO3 30 H ABG O2 Saturation 99 H ABG Base Excess 7 H Quality Measures Quality Measures none Assessment & Plan Assessment Current Active Medications: Generic Name Dose Route Start Last Admin Trade Name Freq PRN Reason Stop Dose Admin Acetaminophen 650 mg 08/26/24 17:50 Acetaminophen 325 Mg Tablet PO 09/25/24 17:49 Q6H PRN Fever >101.5 Acetaminophen 1,000 mg 08/26/24 17:50 Acetaminophen 325 Mg Tablet PO 09/25/24 17:49 Q6H PRN PAIN SCALE 1-3 (mild Dextrose 25 ml 08/26/24 18:13 Dextrose 50%-Water Inj 50 Ml Syringe IV 09/25/24 18:12 Q15MIN PRN BG 50-70 responsive npo pt Dextrose 50 ml 08/26/24 18:13 Dextrose 50%-Water Inj 50 Ml Syringe IV 09/25/24 18:12 Q15MIN PRN BG <50 OR BG <70 & pt unresponsive Glucagon 1 mg 08/26/24 18:13 Glucagon Inj 1 Mg Vial IM Q15MIN PRN BG <70, and no IV access Hydralazine HCl 10 mg 08/26/24 17:56 Hydralazine Inj 20 Mg/Ml Vial IV 09/25/24 17:55 Q6HR PRN SBP>185 Potassium Chloride 10 meq in 100 mls @ 100 mls/hr 08/27/24 06:37 08/27/24 08:42 Kcl Ivpb IV 08/27/24 10:36 100 mls/hr Q1H CHELITA Administration Magnesium Sulfate 4 gm in 50 mls @ 12.5 mls/hr 08/27/24 08:16 08/27/24 08:57 Magnesium Sulfate Ivpb IV 08/27/24 12:15 12.5 mls/hr X1 ONE Administration Insulin Human Lispro 0 unit 08/27/24 07:30 08/27/24 07:42 Insulin Lispro (Admelog) 1 Unit/0.01 Ml Unit SC 09/26/24 07:29 Not Given AC CHELITA Protocol Lactulose 20 gm 08/27/24 09:00 08/27/24 08:14 Lactulose Syrup 20 Gm/30 Ml Udc PO 09/26/24 08:59 20 gm QDAY CHELITA Administration Protocol Losartan Potassium 25 mg 08/27/24 09:00 08/27/24 08:14 Losartan Potassium 25 Mg Tablet PO 09/26/24 08:59 25 mg QDAY CHELITA Administration Ondansetron HCl 4 mg 08/26/24 17:50 Ondansetron Inj 2 Mg/Ml Inj 2 Ml IV 09/25/24 17:49 Q6H PRN NAUSEA OR VOMITING Protocol Rivaroxaban 20 mg 08/27/24 09:00 Rivaroxaban 10 Mg Tablet PO 09/17/24 08:59 QDAY CHELITA Plan 64-year-old male with a history of hypertension, diabetes, colon cancer, liver cirrhosis presented to the ED from the cancer treatment center due to altered mental status. #Acute encephalopathy-resolved #Hypertensive urgency-improving CT head negative negative meningeal signs?low suspicion for infectious etiology Patient did present with systolic blood pressure in the 200s tachycardia Patient does have previous history of elevated ammonia levels on prior admissions however ammonia levels negative at this time Patient mentation back to baseline, is AAOx3 - hydralazine 10mg q6hr prn SBP>185 - resumed edarbi as taken at home - Keep K>4, Mg >2 - monitor telemetry - Cx ordered #Hx of Pulmonary embolism found on CTA in July was put on xarelto by cancer treatment center on room air at this time, denies sob +chest pain - continue xarelto 20mg qday #Hypokalemia per med rec patient takes chronic potassium supplementation - resumed as taken at home -replete as necessary #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 SSI ? Hypoglycemia protocol in place Health Maintenance: Disposition: medtele, altered mental status Fluids: None Feeding: carb consistent low Thrombo prophylaxis: xarelto Gastric Ulcer prophylaxis: none CODE STATUS: Full code Case discussed with my senior Dr. Dawkins and my attending Dr. Maria Fernanda Woods MD PGY-1 Patient examined and case discussed with the team including attending physician. Note reviewed, I agree with the care plan as documented. Mr Chavez is a 64 year old male admitted for acute metabolic encephalopathy of unknown etiology and hypertensive urgency, now resolved. CT head negative for acute findings. Exam negative for meningeal signs?low suspicion for infectious etiology. Per Oncologgy Dr Felipe, patient may be taking OTC medications or being prescribed opiods from an outside source. Plan: Possible iatrogenic drug effect, ordered Urine Tox for further evaluation. program services assistant requested to arrange meeting with family for home medication review. Cleared swallow eval, started diet. Please refer to the note above for further details. - Israel Dawkins MD, PGY 2 Disclaimer: The document may contain phonetic/typographic errors due to voice recognition software. These errors are purely due to imperfections in the software program and should not be misconstrued in any way to compromise the substance of the patient's medical care during this visit. Attending Provider Attestation/Addendum 64-year-old male with multiple comorbidities including hypertension, hyperlipidemia, colon adenocarcinoma with possible mets to the lungs currently being followed up at the cancer treatment center and pulmonary embolus on Xarelto who presented with altered mentation. Furthermore, patient underwent CT head with no evidence of any acute intracranial abnormality and patient does not have any fevers or neck stiffness to suggest an encephalomeningitis. Upon initial encounter, patient is alert and oriented to name, date of and place and denies any focal neurologic deficits. The patient noted to have hypertensive urgency/emergency for which we will admit the patient and control blood pressure. Overnight, patient's mentation is back to baseline. Discussed case with son who stated that he would like him to go home once he is ready to be discharged. Will continue to monitor for 1 more day..I reviewed above note and agree with findings and plans. I have also personally examined the patient with medicine team and went over assessment and plan with medical team including marketing intern and resident physician.
[2024-08-27] MEDS: RIVAROXABAN 10 MG TABLET 20 MG PO (09:58)
[2024-08-27] MEDS: POTASSIUM CHLORIDE 10% 20 MEQ/15 ML UDC 40 MEQ PO (09:58)
[2024-08-27] MEDS: INSULIN LISPRO (AdmeLOG) 1 UNIT/0.01 ML UNIT SC ×2 (11:36→17:38)
--- NOTE | 2024-08-27 11:39 | PC.NURSE ---
doctor Kong made aware of patients jorge BP, vital signs documented, doctor will review vitals and put orders.
--- NOTE | 2024-08-27 12:47 | PC.SS ---
Lloyd Garner is a 64 year old male admitted o [facility] for AMS. SS conducted over the phone contact with pt nicole Chavez [phone], role and reason explained to Lars. Lars confirmed all pt information. Johnathon identifies himself as the pt medical decision maker. Pt resides at home with him . Pt has had trouble with completing ADLs independently more recently. DC options discussed and Lars is open to SNF as recommended by PT. They are open to all facilities but prefer [facility] as they are from [place]. SS to submit referral via [facility] and follow up with Lars. DC plan: SNF PCP: Dr. Pace DM: Lars Grigsby
--- NOTE | 2024-08-27 13:09 | PC.SS ---
SS submitted referral for SNF via [facility]
[2024-08-27 14:42] LABS: Albumin, Serum 3.7 gm/dL (3.4-4.8); Anion Gap 7 (7-16); BUN/Creatinine Ratio 14 Ratio (12-20); Blood Urea Nitrogen 10 mg/dL (9-23); Calcium (Corrected) 9.2 mg/dL (8.5-10.1); Carbon Dioxide 29.7 mMol/L (20.0-31.0); Chloride 96 mMol/L (98-107); Creatinine (Component) 0.7 mg/dL (0.6-1.3); Estimated Creatinine Clearance 82.4 mL/min (>60); Glucose 201 mg/dL (74-106); Osmolality,Calculated 271 (275-295); Phosphorous 2.5 mg/dL (2.4-5.1); Potassium 3.1 mMol/L (3.4-5.1); Sodium 133 mMol/L (136-145); eGFR > 60 See Note
--- NOTE | 2024-08-27 15:27 | ESPR_ITS ---
Documentation for date of: 08/27/24 Subjective Subjective Interval history: Patient was seen and examined by the bedside. No acute overnight events. Patient is AOx2 (reports his name and month), but still not to his baseline. Son at the bedside, reports that his last chemotherapy session was 2 weeks ago, after that he was experiencing nausea, vomiting, poor oral intake and in the last week he progressively became more weak and unable to ambulate on his own. Son also reports that the patient was hallucinating prior to coming to the hospital, talking to nobody. Son reports that today patient is looking better. PT saw the patient, he recommended SNF placement. Blood, urine cultures pending. Exam Vital Signs Temp Pulse Resp BP Pulse Ox O2 Del Method 97.9 F 111 H 16 169/102 H 95 Room Air 08/27/24 11:59 08/27/24 11:59 08/27/24 11:59 08/27/24 11:59 08/27/24 11:59 08/27/24 11:59 Narrative Exam Gen: Well-developed and well-nourished. Resting in bed. HEENT: NCAT, PERRLA, EOMI, MMM, anicteric conjunctivae. CVS: normal S1 and S2. RRR. No M/R/G. Resp: CTA B/L. No rhonchi, rales, crackles or wheezing. Abd: soft, non-tender, non-distended. BS+ in all 4 quadrants. MSK: Good ROM in BUE & BLE. No edema or rash. Neuro: CN II-XII grossly intact. Strength 5/5 in BUE & BLE. Alert and oriented x2 (name and month). Psych: appropriate mood and affect. Objective Labs 08/28/24 04:50 08/28/24 04:50 Labs: Laboratory Results - last 24 hr 08/26/24 08/26/24 08/26/24 16:28 17:27 22:17 WBC RBC Hgb Hct MCV MCH MCHC RDW Std Deviation Plt Count Neut % (Auto) Lymph % (Auto) [place] % (Auto) Eos % (Auto) Baso % (Auto) Neut # (Auto) Lymph # (Auto) [place] # (Auto) Eos # (Auto) Baso # (Auto) Immature Gran # (Auto) Absolute Nucleated RBC Immature Gran % Nucleated RBC % Puncture Site Right Brachial ABG pH 7.54 H ABG pCO2 35 ABG pO2 95 ABG HCO3 30 H ABG O2 Saturation 99 H ABG Base Excess 7 H FiO2 98 Sodium 136 Potassium 2.6 L* Chloride 94 L Carbon Dioxide 30.9 Anion Gap 11 BUN 9 Creatinine 0.7 Estim Creat Clear Calc 89.3 eGFR > 60 BUN/Creatinine Ratio [address] Glu mg/dL Hemoglobin A1c Calculated Osmolality 274 L Lactic Acid 1.6 Calcium 9.2 Corrected Calcium 9.4 Phosphorus 3.4 Magnesium Total Bilirubin AST ALT Alkaline Phosphatase Total Protein Albumin 3.7 Globulin Albumin/Globulin Ratio TSH 08/27/24 08/27/24 04:42 14:12 WBC 4.2 RBC 3.73 L Hgb 11.0 L Hct 33.4 L MCV 90 MCH 29.5 MCHC 32.9 RDW Std Deviation 54.0 H Plt Count 270 D Neut % (Auto) 50 Lymph % (Auto) 20 [place] % (Auto) 30 H Eos % (Auto) 0 Baso % (Auto) 0 Neut # (Auto) 2.1 Lymph # (Auto) 0.8 L [place] # (Auto) 1.3 H Eos # (Auto) 0.0 Baso # (Auto) 0.0 Immature Gran # (Auto) 0.01 H Absolute Nucleated RBC 0.00 Immature Gran % 0 Nucleated RBC % 0 Puncture Site ABG pH ABG pCO2 ABG pO2 ABG HCO3 ABG O2 Saturation ABG Base Excess FiO2 Sodium 137 133 L Potassium 2.6 L* 3.1 L D Chloride 95 L 96 L Carbon Dioxide 31.1 H 29.7 Anion Gap 11 7 BUN 9 10 Creatinine 0.7 0.7 Estim Creat Clear Calc 82.4 82.4 eGFR > 60 > 60 BUN/Creatinine Ratio 13 14 Glucose [address] Glu mg/dL 157 H Hemoglobin A1c 7.1 H Calculated Osmolality 275 271 L Lactic Acid Calcium 9.3 9.0 Corrected Calcium 9.5 9.2 Phosphorus 3.2 2.5 Magnesium 1.9 Total Bilirubin 0.7 AST 21 ALT 16 Alkaline Phosphatase 96 Total Protein 7.7 Albumin 3.7 3.7 Globulin 4.0 H Albumin/Globulin Ratio 0.9 L TSH 1.54 ABG Interpretation ABG results: 08/26/24 17:27 ABG pH 7.54 H ABG pCO2 35 ABG pO2 95 ABG HCO3 30 H ABG O2 Saturation 99 H ABG Base Excess 7 H Quality Measures Quality Measures none Assessment & Plan Assessment Current Active Medications: Generic Name Dose Route Start Last Admin Trade Name Julieta PRN Reason Stop Dose Admin Acetaminophen 650 mg 08/26/24 17:50 Acetaminophen 325 Mg Tablet PO 09/25/24 17:49 Q6H PRN Fever >101.5 Acetaminophen 1,000 mg 08/26/24 17:50 Acetaminophen 325 Mg Tablet PO 09/25/24 17:49 Q6H PRN PAIN SCALE 1-3 (mild Dextrose 25 ml 08/26/24 18:13 Dextrose 50%-Water Inj 50 Ml Syringe IV 09/25/24 18:12 Q15MIN PRN BG 50-70 responsive npo pt Dextrose 50 ml 08/26/24 18:13 Dextrose 50%-Water Inj 50 Ml Syringe IV 09/25/24 18:12 Q15MIN PRN BG <50 OR BG <70 & pt unresponsive Glucagon 1 mg 08/26/24 18:13 Glucagon Inj 1 Mg Vial IM Q15MIN PRN BG <70, and no IV access Hydralazine HCl 10 mg 08/26/24 17:56 Hydralazine Inj 20 Mg/Ml Vial IV 09/25/24 17:55 Q6HR PRN SBP>185 Insulin Human Lispro 0 unit 08/27/24 07:30 08/27/24 11:36 Insulin Lispro (Admelog) 1 Unit/0.01 Ml Unit SC 09/26/24 07:29 1 unit AC [facility] Administration Protocol Lactulose 20 gm 08/27/24 09:00 08/27/24 08:14 Lactulose Syrup 20 Gm/30 Ml Udc PO 09/26/24 08:59 20 gm QDAY CHELITA Administration Protocol Ondansetron HCl 4 mg 08/26/24 17:50 Ondansetron Inj 2 Mg/Ml Inj 2 Ml IV 09/25/24 17:49 Q6H PRN NAUSEA OR VOMITING Protocol (Azilsartan 1 ea 08/27/24 21:00 Medoxomil [Edarbi] PO 09/26/24 20:59 40 Mg Tablet) BID [facility] Protocol Potassium Chloride 20 meq 08/28/24 09:00 Potassium Chloride 20 Meq Tabcr PO 09/27/24 08:59 DAILY [facility] Rivaroxaban 20 mg 08/27/24 09:00 08/27/24 09:58 Rivaroxaban 10 Mg Tablet PO 09/17/24 08:59 20 mg QDAY CHELITA Administration Plan #Acute encephalopathy Ddx: Metabolic encephalopathy vs hypertensive encephalopathy. Imaging is negative for acute intracranial pathology. Plan: - continue work-up for metabolic encephalopathy - physical therapy - medication reconciliation - avoid opiates, benzodiazepines and anticholinergics if possible - urine, blood cultures pending - BP control, 5-15% in the next 23 hours - syphilis serology, TSH, B12, folate ordered - UDS ordered #General weakness #Hypokalemia Plan: - replete as necessary #Stage III colon cancer #Hypertension #T2DM #Pulmonary embolism - management per primary team Plan of care discussed with attending Dr. Louie. Karla Robles MD, PGY 1. Attending Provider Attestation/Addendum I personally have seen and examined the patient at the bedside and I agree with resident's findings, assessment and plan of care. Will continue with the current management and will fu with workup ordered. Patient is showing clinical improvement from admission.
[2024-08-27 16:58] LABS: Amphetamine/Methamp Scrn,U Negative (Negative); Barbiturate Screen,Urine Negative (Negative); Benzodiazepines Screen,Urine Negative (Negative); Benzoylecgonine Screen, Ur Negative (Negative); Fentanyl Screen,Urine Negative (Negative); Opiate Screen,Urine Negative (Negative); THC Screen,Urine Negative (Negative)
[2024-08-27] MEDS: carVEDILOL 3.125 MG TABLET 6.25 MG PO (17:35)
[2024-08-27] MEDS: AZILSARTAN MEDOXOMIL 40 MG PO (17:49)
[2024-08-27] MEDS: ACETAMINOPHEN 325 MG TABLET 1000 MG PO (17:58)
--- NOTE | 2024-08-27 18:26 | PC.NURSE ---
Dr. Dawkins made aware pt's BP on right arm 179/102 left arm 180/105, orders received, read back, and carried out.
--- NOTE | 2024-08-27 18:30 | PC.NURSE ---
reassess BP 151/84 md aware.
[2024-08-27] MEDS: hydrALAZINE INJ 20 MG/ML VIAL 10 MG IV (20:56)
[2024-08-28] VITALS (11 sets, daily range): BP systolic 119–170; BP diastolic 89–104; PULSE 71–102; RESP 16–98; TEMP 36.3–36.7; O2SAT 98–100
[2024-08-28 05:21] LABS: Basophils % (Auto) 0 % (0-2.5); Eosinophils % (Auto) 1 % (0-10); Hematocrit 35.6 % (41.0-53.0); Hemoglobin 12.2 g/dL (13.5-16.0); Immature Granulocytes % (Auto) 0 % (0-0); Immature Granulocytes Auto 0.01 Thou/mm3 (0.00-0.00); Lymphocytes # (Auto) 1.4 Thou/mm3 (1.0-4.8); Lymphocytes % (Auto) 24 % (10-50); Mean Corpuscular HGB Conc 34.3 g/dl (31.0-37.0); Mean Corpuscular Hemoglobin 30.3 pg (25.0-35.0); Mean Corpuscular Volume 88 fL (80-100); Monocytes # (Auto) 1.4 Thou/mm3 (0.0-0.8); Monocytes % (Auto) 23 % (0-12); Neutrophils % (Auto) 52 % (37-80); Nucleated Red Blood Cell % 0 /100 WBC (0); Platelet Count 323 Thou/mm3 (140-440); Red Blood Count 4.03 Miln/mm3 (4.50-5.90); White Blood Count 5.8 Thou/mm3 (3.8-10.6)
[2024-08-28 05:45] LABS: Alanine Aminotransferase 16 U/L (10-49); Albumin, Serum 3.7 gm/dL (3.4-4.8); Albumin/Globulin Ratio 0.9 (1.2-2.2); Alkaline Phosphatase 103 U/L (46-116); Anion Gap 11 (7-16); Aspartate Amino Transferase 22 U/L (0-34); BUN/Creatinine Ratio 13 Ratio (12-20); Bilirubin,Total 0.6 mg/dL (0.3-1.2); Blood Urea Nitrogen 9 mg/dL (9-23); Calcium 9.3 mg/dL (8.3-10.6); Calcium (Corrected) 9.5 mg/dL (8.5-10.1); Carbon Dioxide 29.6 mMol/L (20.0-31.0); Chloride 92 mMol/L (98-107); Creatinine (Component) 0.7 mg/dL (0.6-1.3); Estimated Creatinine Clearance 82.4 mL/min (>60); Folate 20.66 ng/mL (>5.38); Globulin 4.3 gm/dL (2.3-3.5); Glucose 190 mg/dL (74-106); Magnesium 2.2 mg/dL (1.6-2.6); Osmolality,Calculated 270 (275-295); Phosphorous 3.1 mg/dL (2.4-5.1); Potassium 3.2 mMol/L (3.4-5.1); Sodium 133 mMol/L (136-145); Thyroid Stimulating Hormone 2.01 uIU/mL (0.55-4.78); Vitamin B12 1440 pg/mL (211-911); eGFR > 60 See Note
[2024-08-28 06:00] LABS: Syphilis Nonreactive (Nonreactive)
[2024-08-28] MEDS: LACTULOSE SYRUP 20 GM/30 ML UDC PO (08:41)
[2024-08-28] MEDS: RIVAROXABAN 10 MG TABLET 20 MG PO (08:41)
[2024-08-28] MEDS: POTASSIUM CHLORIDE 20 mEq TABCR PO (08:42)
[2024-08-28] MEDS: AZILSARTAN MEDOXOMIL 40 MG PO ×2 (08:42→20:35)
[2024-08-28] MEDS: carVEDILOL 3.125 MG TABLET 6.25 MG PO (08:42)
[2024-08-28] MEDS: INSULIN LISPRO (AdmeLOG) 1 UNIT/0.01 ML UNIT SC ×3 (08:47→18:09)
--- NOTE | 2024-08-28 09:05 | PC.SS ---
Follow up note: SS followed up with [facility] on clarification if they reviewed request for SNF. Patient will need authorization. He may be ready 1-2 days.
--- NOTE | 2024-08-28 11:58 | PC.SS ---
Addendum entered by Charlotte Leslie 08/28/24 13:46: SS spoke to son and updated that no facilities have accepted and iif he is interested in home health services. Patient's son agreed and is requesting a wheelchair. Patient has d/c orders for today. Patient will d/c home with and son. He will need gurney trasnport home. SS will send out DME request through [employer]. orders pending. Original Note: Follow up note: SS resent SNF referrals further out to [facility]. All facilities including [facility] has declined. Patient is receiving o/p Cancer treatment services. SS left message for son, Lars, regarding Home health services as alternate option.
--- NOTE | 2024-08-28 13:32 | PC.SS ---
Patient needs a standard wheelchair for home. The patient and her family are requesting a wheel chair. Patients diagnosis creates mobility limitations that significantly impairs ability to participate in the patient?s activities of daily living either in their entirety or in a reasonable timeframe in the home and the patient?s mobility limitations cannot be sufficiently resolved with an appropriately fitted cane or walker. Also, the use of a manual wheelchair will sufficiently improve patients ability to participate in the activities of daily living in the home and the patient is willing to use the wheelchair that is provided in the home. The patient has some one in the home that is available, willing and able to provide assistance with the wheelchair.
[2024-08-28] MEDS: ACETAMINOPHEN 325 MG TABLET 1000 MG PO (13:40)
--- NOTE | 2024-08-28 13:46 | XR_ITS ---
Examination: CT brain head without contrast. 2-D sagittal coronal reconstructions Date and time of exam:August 28, 2024 1458 hours Comparison August 26, 2024 INDICATIONS: Headaches head pressure today with left eye deviation CTDI: vol (mGy):52 DLP: (mGycm):1113 Technique: Multiple CT axial sections of the brain have been obtained, 5 mm slice thickness. Contrast has not been administered. 2-D sagittal, coronal reconstructions have been obtained Low dose protocols were performed. One or more of the following dose reduction techniques were used; automated exposure control, adjustment of the mA and/or KV according to patient size, use of iterative reconstruction technique. Findings: No significant ventricular enlargement. Intra-axial or extra-axial hemorrhage density is not seen. No mass effect or midline shift Basal cisterns are not remarkable. Fourth ventricle is midline. Cranial vault intact. Impression: No interval acute hemorrhage, mass effect or midline shift
--- NOTE | 2024-08-28 14:13 | PD.RESPRO ---
Documentation for date of: 08/28/24 Subjective Subjective Interval history: Patient was seen and examined by the bedside. No acute overnight events. HCIN standpipe tender was used for interaction. Patient is AOx3, reports neck pain. On exam left eye appears slightly deviated, left pupils is dilated, non-reactive to light, eyelid is lowered. CT head was negative for acute stroke. Exam Vital Signs Temp Pulse Resp BP Pulse Ox O2 Del Method 97.3 F 101 H 16 148/104 H 98 Room Air 08/28/24 11:45 08/28/24 11:45 08/28/24 11:45 08/28/24 11:45 08/28/24 11:45 08/28/24 11:45 Narrative Exam Gen:Chronically ill-appearing sleeping male, easily aroused. HEENT: NCAT, R slightly>L, reactive to light, bilateral pterygium, EOMI, MMM, anicteric conjunctivae. CVS: normal S1 and S2. RRR. No M/R/G. Resp: CTA B/L. No rhonchi, rales, crackles or wheezing. Abd: soft, non-tender, distended. BS+ in all 4 quadrants. MSK: Good ROM in BUE & BLE. No edema or rash. Neuro: Alert and oriented x3 Cranial nerves:L>R, L non-reactive to light, bilateral pterygium. Lateral deviation of left eye, decreased medial adduction. Left eyelid is lowered. Speech and language: Normal with no dysarthria or dysphasia. Motor system: Tone and bulk: Normal: Strength: 5 out of 5 in all 4 extremities; No pronator drift noted. Deep tendon reflexes: 1+ bilaterally symmetrical. Plantar reflex: Downgoing bilaterally. Sensory system: Intact to all modalities of sensation bilaterally. Coordination: not tested Gait: Not tested. Romberg: Not tested. No signs of meningeal irritation noted. Strength 5/5 in BUE & BLE. Objective Labs 08/29/24 21:43 08/29/24 21:43 Labs: Laboratory Results - last 24 hr 08/27/24 08/27/24 08/28/24 14:12 16:18 04:50 WBC 5.8 RBC 4.03 L Hgb 12.2 L Hct 35.6 L MCV 88 MCH 30.3 MCHC 34.3 RDW Std Deviation 53.0 H Plt Count 323 D Neut % (Auto) 52 Lymph % (Auto) 24 [place] % (Auto) 23 H Eos % (Auto) 1 Baso % (Auto) 0 Neut # (Auto) 3.0 Lymph # (Auto) 1.4 [place] # (Auto) 1.4 H Eos # (Auto) 0.0 Baso # (Auto) 0.0 Immature Gran # (Auto) 0.01 H Absolute Nucleated RBC 0.00 Immature Gran % 0 Nucleated RBC % 0 Sodium 133 L 133 L Potassium 3.1 L D 3.2 L Chloride 96 L 92 L Carbon Dioxide 29.7 29.6 Anion Gap 7 11 BUN 10 9 Creatinine 0.7 0.7 Estim Creat Clear Calc 82.4 82.4 eGFR > 60 > 60 BUN/Creatinine Ratio 14 13 Glucose 201 H 190 H Calculated Osmolality 271 L 270 L Calcium 9.0 9.3 Corrected Calcium 9.2 9.5 Phosphorus 2.5 3.1 Magnesium 2.2 Total Bilirubin 0.6 AST 22 ALT 16 Alkaline Phosphatase 103 Total Protein 8.0 Albumin 3.7 3.7 Globulin 4.3 H Albumin/Globulin Ratio 0.9 L Vitamin B12 1440 H Folate 20.66 TSH 2.01 Urine Opiates Screen Negative Urine Fentanyl Screen Negative Ur Barbiturates Screen Negative U Amphetamin/Meth Scrn Negative U Benzodiazepines Scrn Negative U Cocaine Metab Screen Negative U Marijuana (THC) Screen Negative Syphilis Serology Nonreactive ABG Interpretation ABG results: 08/26/24 17:27 ABG pH 7.54 H ABG pCO2 35 ABG pO2 95 ABG HCO3 30 H ABG O2 Saturation 99 H ABG Base Excess 7 H Quality Measures Quality Measures VTE prophylaxis Assessment & Plan Assessment Current Active Medications: Generic Name Dose Route Start Last Admin Trade Name Freq PRN Reason Stop Dose Admin Acetaminophen 650 mg 08/26/24 17:50 Acetaminophen 325 Mg Tablet PO 09/25/24 17:49 Q6H PRN Fever >101.5 Acetaminophen 1,000 mg 08/26/24 17:50 08/28/24 13:40 Acetaminophen 325 Mg Tablet PO 09/25/24 17:49 1,000 mg Q6H PRN Administration PAIN SCALE 1-3 (mild Carvedilol 6.25 mg 08/27/24 17:30 08/28/24 08:42 Carvedilol 3.125 Mg Tablet PO 09/26/24 17:29 6.25 mg BIDWM CHELITA Administration (Azilsartan 0 ea 08/27/24 17:45 08/28/24 08:42 Medoxomil [Edarbi] PO 09/26/24 17:44 1 tablet 40 Mg Tablet) BID [facility] Administration Dextrose 25 ml 08/26/24 18:13 Dextrose 50%-Water Inj 50 Ml Syringe IV 09/25/24 18:12 Q15MIN PRN BG 50-70 responsive npo pt Dextrose 50 ml 08/26/24 18:13 Dextrose 50%-Water Inj 50 Ml Syringe IV 09/25/24 18:12 Q15MIN PRN BG <50 OR BG <70 & pt unresponsive Glucagon 1 mg 08/26/24 18:13 Glucagon Inj 1 Mg Vial IM Q15MIN PRN BG <70, and no IV access Hydralazine HCl 10 mg 08/26/24 17:56 08/27/24 20:56 Hydralazine Inj 20 Mg/Ml Vial IV 09/25/24 17:55 10 mg Q6HR PRN Administration SBP>185 Insulin Human Lispro 0 unit 08/27/24 07:30 08/28/24 12:49 Insulin Lispro (Admelog) 1 Unit/0.01 Ml Unit SC 09/26/24 07:29 1 unit AC [facility] Administration Protocol Lactulose 20 gm 08/27/24 09:00 08/28/24 08:41 Lactulose Syrup 20 Gm/30 Ml Udc PO 09/26/24 08:59 20 gm QDAY CHELITA Administration Protocol Ondansetron HCl 4 mg 08/26/24 17:50 Ondansetron Inj 2 Mg/Ml Inj 2 Ml IV 09/25/24 17:49 Q6H PRN NAUSEA OR VOMITING Protocol Potassium Chloride 20 meq 08/28/24 09:00 08/28/24 08:42 Potassium Chloride 20 Meq Tabcr PO 09/27/24 08:59 20 meq DAILY [facility] Administration Rivaroxaban 20 mg 08/27/24 09:00 08/28/24 08:41 Rivaroxaban 10 Mg Tablet PO 09/17/24 08:59 20 mg QDAY CHELITA Administration Plan The patient is a 64-year-old male with a previous medical history of stage III colon cancer status post right hemicolectomy on chemotherapy, asymptomatic segmental pulmonary embolism on Xarelto, liver cirrhosis, hypertension and diabetes who was brought to the ED due to altered mentation that started approximately 5 to 6 days ago. Most of the history was taken through chart review. #Cranial III palsy Ddx: acute brainstem stroke vs diabetic cranial neuropathy Plan: - ordered MRI brain - continue with blood sugar control #Acute encephalopathy Ddx: Metabolic encephalopathy vs hypertensive encephalopathy. Imaging is negative for acute intracranial pathology. Plan: - avoid opiates, benzodiazepines and anticholinergics if possible - urine, blood cultures negative - BP control, follow-up with PCP outpatient - syphilis serology negative, TSH, B12, folate normal - UDS negative - repeat head CT ordered #General weakness #Hypokalemia Plan: - replete as necessary #Stage III colon cancer #Hypertension #T2DM #Pulmonary embolism - management per primary team Plan of care discussed with attending Dr. Louie. Karla Robles MD, PGY 1. Attending Provider Attestation/Addendum I personally have seen and examined the patient at the bedside and I agree with resident's findings, assessment and plan of care. Will continue with the current management and will fu with workup ordered. Patient is showing clinical improvement from admission with the exception of 3rd nerve palsy on the left, likely sec to Diabetes. But cannot rule out the brainstem stroke.
--- NOTE | 2024-08-28 16:02 | PD.RESPRO ---
Documentation for date of: 08/28/24 Subjective Subjective Interval history: Patient seen today at the bedside found awake, alert, orientedx3. States presenting symptoms resolved denies headache at this time. No overnight events reported. Vitals and labs reviewed. Patient was started on carvedilol 6.25mg BID for BP control will uptitrate as tolerated. CT head was ordered to evaluate for any signs of intracranial bleed per neuro reccs, found to be negative. Possible DC in next 24 hours. Exam Vital Signs Temp Pulse Resp BP Pulse Ox O2 Del Method 97.3 F 101 H 16 148/104 H 98 Room Air 08/28/24 15:57 08/28/24 15:57 08/28/24 15:57 08/28/24 15:57 08/28/24 15:57 08/28/24 15:57 Narrative Exam Physical Exam GENERAL: NAD, AAOx3, somnolent HEENT: dry mucosa. Eyes open, symmetrical, & clear CARDIO: Heart RRR, no obvious murmurs PULM: No noted coughing/dyspnea CTA B/L, no R/W/R GI: Abdomen soft, nondistended, no pain on palpation. BSx4 SKIN/MSK/EXT: No wounds/rashes/edema/amputations, no pain on palpation. Pedal pulses present B/L NEURO: able to move all 4 extremities Objective Labs 08/29/24 11:25 08/29/24 11:25 Labs: Laboratory Results - last 24 hr 08/27/24 08/28/24 16:18 04:50 WBC 5.8 RBC 4.03 L Hgb 12.2 L Hct 35.6 L MCV 88 MCH 30.3 MCHC 34.3 RDW Std Deviation 53.0 H Plt Count 323 D Neut % (Auto) 52 Lymph % (Auto) 24 [place] % (Auto) 23 H Eos % (Auto) 1 Baso % (Auto) 0 Neut # (Auto) 3.0 Lymph # (Auto) 1.4 [place] # (Auto) 1.4 H Eos # (Auto) 0.0 Baso # (Auto) 0.0 Immature Gran # (Auto) 0.01 H Absolute Nucleated RBC 0.00 Immature Gran % 0 Nucleated RBC % 0 Sodium 133 L Potassium 3.2 L Chloride 92 L Carbon Dioxide 29.6 Anion Gap 11 BUN 9 Creatinine 0.7 Estim Creat Clear Calc 82.4 eGFR > 60 BUN/Creatinine Ratio 13 Glucose 190 H Calculated Osmolality 270 L Calcium 9.3 Corrected Calcium 9.5 Phosphorus 3.1 Magnesium 2.2 Total Bilirubin 0.6 AST 22 ALT 16 Alkaline Phosphatase 103 Total Protein 8.0 Albumin 3.7 Globulin 4.3 H Albumin/Globulin Ratio 0.9 L Vitamin B12 1440 H Folate 20.66 TSH 2.01 Urine Opiates Screen Negative Urine Fentanyl Screen Negative Ur Barbiturates Screen Negative U Amphetamin/Meth Scrn Negative U Benzodiazepines Scrn Negative U Cocaine Metab Screen Negative U Marijuana (THC) Screen Negative Syphilis Serology Nonreactive ABG Interpretation ABG results: 08/26/24 17:27 ABG pH 7.54 H ABG pCO2 35 ABG pO2 95 ABG HCO3 30 H ABG O2 Saturation 99 H ABG Base Excess 7 H Quality Measures Quality Measures VTE prophylaxis Assessment & Plan Assessment Current Active Medications: Generic Name Dose Route Start Last Admin Trade Name Freq PRN Reason Stop Dose Admin Acetaminophen 650 mg 08/26/24 17:50 Acetaminophen 325 Mg Tablet PO 09/25/24 17:49 Q6H PRN Fever >101.5 Acetaminophen 1,000 mg 08/26/24 17:50 08/28/24 13:40 Acetaminophen 325 Mg Tablet PO 09/25/24 17:49 1,000 mg Q6H PRN Administration PAIN SCALE 1-3 (mild Carvedilol 6.25 mg 08/27/24 17:30 08/28/24 08:42 Carvedilol 3.125 Mg Tablet PO 09/26/24 17:29 6.25 mg BIDWM CHELITA Administration (Azilsartan 0 ea 08/27/24 17:45 08/28/24 08:42 Medoxomil [Edarbi] PO 09/26/24 17:44 1 tablet 40 Mg Tablet) BID [facility]HELITA Administration Dextrose 25 ml 08/26/24 18:13 Dextrose 50%-Water Inj 50 Ml Syringe IV 09/25/24 18:12 Q15MIN PRN BG 50-70 responsive npo pt Dextrose 50 ml 08/26/24 18:13 Dextrose 50%-Water Inj 50 Ml Syringe IV 09/25/24 18:12 Q15MIN PRN BG <50 OR BG <70 & pt unresponsive Glucagon 1 mg 08/26/24 18:13 Glucagon Inj 1 Mg Vial IM Q15MIN PRN BG <70, and no IV access Hydralazine HCl 10 mg 08/26/24 17:56 08/27/24 20:56 Hydralazine Inj 20 Mg/Ml Vial IV 09/25/24 17:55 10 mg Q6HR PRN Administration SBP>185 Insulin Human Lispro 0 unit 08/27/24 07:30 08/28/24 12:49 Insulin Lispro (Admelog) 1 Unit/0.01 Ml Unit SC 09/26/24 07:29 1 unit AC [facility] Administration Protocol Lactulose 20 gm 08/27/24 09:00 08/28/24 08:41 Lactulose Syrup 20 Gm/30 Ml Udc PO 09/26/24 08:59 20 gm QDAY CHELITA Administration Protocol Ondansetron HCl 4 mg 08/26/24 17:50 Ondansetron Inj 2 Mg/Ml Inj 2 Ml IV 09/25/24 17:49 Q6H PRN NAUSEA OR VOMITING Protocol Potassium Chloride 20 meq 08/28/24 09:00 08/28/24 08:42 Potassium Chloride 20 Meq Tabcr PO 09/27/24 08:59 20 meq DAILY [facility] Administration Rivaroxaban 20 mg 08/27/24 09:00 08/28/24 08:41 Rivaroxaban 10 Mg Tablet PO 09/17/24 08:59 20 mg QDAY CHELITA Administration Plan 64-year-old male with a history of hypertension, diabetes, colon cancer, liver cirrhosis presented to the ED from the [facility] due to altered mental status. #Acute encephalopathy-resolved #Hypertensive urgency-improving CT head negative negative meningeal signs?low suspicion for infectious etiology Patient did present with systolic blood pressure in the 200s tachycardia Patient does have previous history of elevated ammonia levels on prior admissions however ammonia levels negative at this time Patient mentation back to baseline, is AAOx3 - hydralazine 10mg q6hr prn SBP>185 - on carvedilol 6.25mg BID, uptitrated to 12.5mg BID - resumed edarbi as taken at home - Keep K>4, Mg >2 - monitor telemetry - Cx ordered #Hx of Pulmonary embolism found on CTA in July was put on xarelto by [facility] on room air at this time, denies sob +chest pain - continue xarelto 20mg qday #Hypokalemia per med rec patient takes chronic potassium supplementation - resumed as taken at home - replete as necessary #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 SSI ? Hypoglycemia protocol in place Health Maintenance: Disposition: medtele, altered mental status Fluids: None Feeding: carb consistent low Thrombo prophylaxis: xarelto Gastric Ulcer prophylaxis: none CODE STATUS: Full code Case discussed with my attending Dr. Maria Fernanda Woods MD PGY-1 Attending Provider Attestation/Addendum 64-year-old male with multiple comorbidities including hypertension, hyperlipidemia, colon adenocarcinoma with possible mets to the lungs currently being followed up at the cancer treatment center and pulmonary embolus on Xarelto who presented with altered mentation. Furthermore, patient underwent CT head with no evidence of any acute intracranial abnormality and patient does not have any fevers or neck stiffness to suggest an encephalomeningitis. Upon initial encounter, patient is alert and oriented to name, date of and place and denies any focal neurologic deficits. The patient noted to have hypertensive urgency/emergency for which we will admit the patient and control blood pressure. Overnight, patient's mentation is back to baseline. Discussed case with son who stated that he would like him to go home once he is ready to be discharged. Neurology evaluated the patient and given that patient has left eye deviation concerning for cranial nerve palsy for which recommended obtaining a CT head. CT head has been ordered and patient's mentation is back to baseline with no focal neurologic deficits..I reviewed above note and agree with findings and plans. I have also personally examined the patient with medicine team and went over assessment and plan with medical team including agronomy internship and resident physician.
[2024-08-28] MEDS: carVEDILOL 12.5 MG TABLET PO (18:09)
[2024-08-29] VITALS (42 sets, daily range): BP systolic 68–244; BP diastolic 53–197; PULSE 62–170; RESP 7–98; TEMP 36.1–36.9; O2SAT 95–100; BMI 20.5; BMI 12.0
--- NOTE | 2024-08-29 | XR_ITS ---
Examinations: MRI Brain without intravenous contrast. MRA brain without intravenous contrast. MRA carotids without intravenous contrast 3-D vascular reconstructions Date and time of exam: August 29, 2024 1844 hours INDICATIONS: Stroke alert CT brain scan today, left eye ptosis mydriasis lateral eye deviation clinical diagnosis brainstem infarct Technique: Multiple axial and sagittal images of the brain have been obtained MRA brain carotid images without contrast obtained, including 3-D postprocessing, vascular maximum intensity projection images Findings: Sell[place] is not enlarged. The optic chiasm and infundibular stalk are not remarkable. Prepontine and interpeduncular cisterns are not enlarged. No localized enlargement of the medulla or celia. Fourth ventricle and cerebellar tonsils normal in position. Subacute hemorrhage is not seen. Fourth ventricle is midline. Mass in the cerebellopontine angle region is not evident. 7th and 8th nerve complexes exhibits symmetry. Globes are symmetrical with no retro-orbital mass. Increased white matter signal moderate Diffusion-weighted images demonstrate small foci restricted diffusion right temporal lobe tip, right occipital lobe both diffusion imaging 8, right occipital lobe axial image 10 and 11 posterior left corpus callosum diffusion image 16, posterior medial left parietal lobe diffusion image 17, high left parietal lobe diffusion image 19-both parietal lobes diffusion image 20 and 21 as well as 22 and 23 Mass-effect upon the ventricular system is not identified. MRA carotid images degraded by patient motion. MRA brain images no large vessel occlusions Impression: Multiple acute embolic-type infarcts including right temporal lobe tip, right occipital lobe, posterior left corpus callosum, posterior medial left parietal lobe and multiple foci in the high parietal lobes bilaterally
--- NOTE | 2024-08-29 | XR_ITS ---
Examination: MRI brain without intravenous contrast. Date and time of exam: August 29, 2024 0950 hours Comparison August 17, 2024 INDICATIONS: Focal neurologic deficit, left eye ptosis mydriasis lateral deviation size, clinical diagnosis brainstem infarct Technique: Multiple axial and sagittal images of the brain obtained. Siemens high-resolution 1.5 Anitra short bore scanners utilized. Sagittal sections, T1-weighted, TR 500, TE 14, are performed. Axial sections proton-density and T2-weighted have been obtained. Inversion recovery axial images, TR 9, 260, TE 111, TI 2500. Diffusion weighted images, axial sections, TR 4800, TE 128, B value 1000 Axial sections, ADC map, TR 4800, TE 128 Findings: Enlargement of the sella turcica is not present. The optic chiasm and infundibular are not remarkable. Prepontine and interpeduncular cisterns are not enlarged. There is no localized enlargement of the medulla or celia. Fourth ventricle and cerebellar tonsils appear normal in position. No subacute area of hemorrhage density is seen. Mass in the cerebellopontine angle region is not evident. Globes symmetrical. Orbital musculature including medial lateral rectus muscles do not exhibit abnormality. Diffusion-weighted images demonstrate embolic type foci restricted diffusion in the frontal parietal lobes, diffusion image 20 and 21, the largest 12 mm. Increased white matter signal moderate Mass effect upon the ventricular system is not identified. Impression: Embolic type acute infarcts in the high parietal frontal lobes
[2024-08-29 05:40] LABS: Basophils % (Auto) 0 % (0-2.5); Eosinophils % (Auto) 0 % (0-10); Hemoglobin 11.9 g/dL (13.5-16.0); Immature Granulocytes % (Auto) 0 % (0-0); Immature Granulocytes Auto 0.02 Thou/mm3 (0.00-0.00); Lymphocytes # (Auto) 1.2 Thou/mm3 (1.0-4.8); Lymphocytes % (Auto) 17 % (10-50); Mean Corpuscular Hemoglobin 29.2 pg (25.0-35.0); Mean Corpuscular Volume 86 fL (80-100); Monocytes # (Auto) 1.3 Thou/mm3 (0.0-0.8); Monocytes % (Auto) 19 % (0-12); Neutrophils # (Auto) 4.6 Thou/mm3 (1.8-7.7); Neutrophils % (Auto) 64 % (37-80); Nucleated Red Blood Cell % 0 /100 WBC (0); Platelet Count 330 Thou/mm3 (140-440); RDW Standard Deviation 50.4 fL (35.1-43.9); Red Blood Count 4.08 Miln/mm3 (4.50-5.90); White Blood Count 7.2 Thou/mm3 (3.8-10.6)
[2024-08-29 06:25] LABS: Alanine Aminotransferase 15 U/L (10-49); Albumin, Serum 3.5 gm/dL (3.4-4.8); Albumin/Globulin Ratio 0.9 (1.2-2.2); Alkaline Phosphatase 93 U/L (46-116); Anion Gap 15 (7-16); Aspartate Amino Transferase 20 U/L (0-34); BUN/Creatinine Ratio 17 Ratio (12-20); Bilirubin,Total 0.5 mg/dL (0.3-1.2); Blood Urea Nitrogen 12 mg/dL (9-23); Calcium 9.5 mg/dL (8.3-10.6); Calcium (Corrected) 9.9 mg/dL (8.5-10.1); Carbon Dioxide 26.8 mMol/L (20.0-31.0); Chloride 88 mMol/L (98-107); Creatinine (Component) 0.7 mg/dL (0.6-1.3); Estimated Creatinine Clearance 82.4 mL/min (>60); Globulin 4.1 gm/dL (2.3-3.5); Glucose 168 mg/dL (74-106); Osmolality,Calculated 264 (275-295); Phosphorous 3.4 mg/dL (2.4-5.1); Sodium 130 mMol/L (136-145); Total Protein 7.6 gm/dL (5.7-8.2); eGFR > 60 See Note
[2024-08-29] MEDS: carVEDILOL 12.5 MG TABLET PO (08:47)
[2024-08-29] MEDS: LACTULOSE SYRUP 20 GM/30 ML UDC PO (08:47)
[2024-08-29] MEDS: POTASSIUM CHLORIDE 20 mEq TABCR PO (08:47)
[2024-08-29] MEDS: INSULIN LISPRO (AdmeLOG) 1 UNIT/0.01 ML UNIT SC (08:47)
[2024-08-29] MEDS: RIVAROXABAN 10 MG TABLET 20 MG PO (08:47)
[2024-08-29] MEDS: Magnesium Sulfate 2 GM Ivpb 2 GM/50 ML BAG IV (08:48)
--- NOTE | 2024-08-29 11:15 | XR_ITS ---
Examination: CT brain head without contrast. 2-D sagittal coronal reconstructions Date and time of exam:August 29, 2024 1117 hours INDICATIONS: Stroke alert, onset diffuse body weakness beginning 10:30 AM this morning CTDI: vol (mGy):51 DLP: (mGycm):1074 Technique: Multiple CT axial sections of the brain have been obtained, 5 mm slice thickness. Contrast has not been administered. 2-D sagittal, coronal reconstructions have been obtained Low dose protocols were performed. One or more of the following dose reduction techniques were used; automated exposure control, adjustment of the mA and/or KV according to patient size, use of iterative reconstruction technique. Findings: No significant ventricular enlargement. Tiny low-density area in the posterior right parietal lobe is unchanged compared to August 28, 2024 Intra-axial or extra-axial hemorrhage density is not seen. No mass effect or midline shift Basal cisterns are not remarkable. Fourth ventricle is midline. Cranial vault intact. Impression: No interval acute hemorrhage, mass effect or midline shift Recommend brain MRI MRA, without contrast, stroke protocol follow-up
--- NOTE | 2024-08-29 11:16 | XR_ITS ---
Examination: CTA carotids with intravenous contrast CTA brain, head with intravenous contrast. 2-D sagittal, coronal reconstructions. 3-D reconstructions. Exam date and time: August 29, 2024 1128 hours INDICATIONS: Stroke alert, onset diffuse body weakness this morning CTDI: vol (mGy) 17.9 DLP: (mGycm) 460 Technique: Multiple CTA axial brain, head carotid images post intravenous contrast injection 100 cc, Isovue-[id number]. 2-D sagittal, coronal reconstructions. 3-D reconstructions, 3-D post processing including vascular maximum intensity projection images. Low dose protocols were performed. One or more of the following dose reduction techniques were used; automated exposure control, adjustment of the mA and/or KV according to patient size, use of iterative reconstruction technique. Findings: No significant common carotid carotid bifurcation or internal carotid artery stenoses Mildly dominant left vertebral artery with no critical stenoses No cerebral large vessel arterial occlusions or thrombus IMPRESSION: No significant neck arterial stenoses No cerebral large vessel arterial occlusions
--- NOTE | 2024-08-29 11:54 | PD.RESPRO ---
Documentation for date of: 08/29/24 Subjective Subjective Interval history: Patient was seen at the bedside around ~8am found awake, alert and orientedx3. able to move all 4 extremities. During re-evaluation around 11 am patient was assessed and had a rapid response and stroke alert was called at 11:11 AM, due to patient having generalized diffuse weakness, vital signs significant for hypertension and tachycardia, with NIHSS: 16, last known well was 10:30 AM Teleneuro was consulted CT head showed no acute hemorrhage or acute cortical infarct Head/neck CTA also negative tPA was not administered due to patient being on Xarelto within the past 48 hours as well as history of colon cancer. MRI brain was obtained demonstrating bilateral high parietal infarct small in size, likely embolic will continue with the remainder of stroke workup including echocardiogram with bubble study, will continue with Xarelto per teleneurology recommendations. No antiplatelet therapy at this time. In house neurology team consulted as well. Exam Vital Signs Temp Pulse Resp BP Pulse Ox O2 Del Method 97.0 F 111 H 20 154/113 H 98 Room Air 08/29/24 08:00 08/29/24 11:33 08/29/24 11:33 08/29/24 11:33 08/29/24 11:33 08/29/24 08:00 Narrative Exam Physical Exam GENERAL: NAD, AAOx3, somnolent HEENT: dry mucosa. Eyes open, symmetrical, & clear CARDIO: Heart RRR, no obvious murmurs PULM: No noted coughing/dyspnea CTA B/L, no R/W/R GI: Abdomen soft, nondistended, no pain on palpation. BSx4 SKIN/MSK/EXT: No wounds/rashes/edema/amputations, no pain on palpation. Pedal pulses present B/L NEURO: diffuse weakness on all 4 extremities NIHSS: 16 1A: Level of Consciousness - Arouses to minor stimulation?+ 1 1B: Ask Month and Age - Both Questions Right?+ 0 1C: Blink Eyes & Squeeze Hands - Performs 1 Task?+ 1 2: Test Horizontal Extraocular Movements - Normal?+ 0 3: Test Visual Leo - No Visual Loss?+ 0 4: Test Facial Palsy (Use Grimace if Obtunded) - Normal symmetry?+ 0 5A: Test Left Arm Motor Drift - No Effort Against [place]?+ 3 5B: Test Right Arm Motor Drift - No Effort Against [place]?+ 3 6A: Test Left Leg Motor Drift - No Movement?+ 4 6B: Test Right Leg Motor Drift - No Movement?+ 4 7: Test Limb Ataxia (FNF/Heel-Bates) - No Ataxia?+ 0 8: Test Sensation - Normal; No sensory loss?+ 0 9: Test Language/Aphasia - Normal; No aphasia?+ 0 10: Test Dysarthria - Normal?+ 0 11: Test Extinction/Inattention - No abnormality?+ 0 Objective Labs 08/29/24 11:25 08/29/24 11:25 Labs: Laboratory Results - last 24 hr 08/29/24 04:39 WBC 7.2 RBC 4.08 L Hgb 11.9 L Hct 35.0 L MCV 86 MCH 29.2 MCHC 34.0 RDW Std Deviation 50.4 H Plt Count 330 Neut % (Auto) 64 Lymph % (Auto) 17 Jewell % (Auto) 19 H Eos % (Auto) 0 Baso % (Auto) 0 Neut # (Auto) 4.6 Lymph # (Auto) 1.2 [place] # (Auto) 1.3 H Eos # (Auto) 0.0 Baso # (Auto) 0.0 Immature Gran # (Auto) 0.02 H Absolute Nucleated RBC 0.00 Immature Gran % 0 Nucleated RBC % 0 Sodium 130 L Potassium 3.0 L Chloride 88 L Carbon Dioxide 26.8 Anion Gap 15 BUN 12 Creatinine 0.7 Estim Creat Clear Calc 82.4 eGFR > 60 BUN/Creatinine Ratio 17 Glucose 168 H Calculated Osmolality 264 L Calcium 9.5 Corrected Calcium 9.9 Phosphorus 3.4 Magnesium 2.0 Total Bilirubin 0.5 AST 20 ALT 15 Alkaline Phosphatase 93 Total Protein 7.6 Albumin 3.5 Globulin 4.1 H Albumin/Globulin Ratio 0.9 L ABG Interpretation ABG results: 08/26/24 17:27 ABG pH 7.54 H ABG pCO2 35 ABG pO2 95 ABG HCO3 30 H ABG O2 Saturation 99 H ABG Base Excess 7 H Quality Measures Quality Measures VTE prophylaxis Assessment & Plan Assessment Current Active Medications: Generic Name Dose Route Start Last Admin Trade Name Freq PRN Reason Stop Dose Admin Acetaminophen 650 mg 08/26/24 17:50 Acetaminophen 325 Mg Tablet PO 09/25/24 17:49 Q6H PRN Fever >101.5 Acetaminophen 1,000 mg 08/29/24 09:30 Acetaminophen 500 Mg Tablet PO 09/25/24 17:49 Q6H PRN PAIN SCALE 1-3 (mild Carvedilol 12.5 mg 08/28/24 17:30 08/29/24 08:47 Carvedilol 12.5 Mg Tablet PO 09/27/24 17:29 12.5 mg BIDWM CHELITA Administration (Azilsartan 0 ea 08/27/24 17:45 08/28/24 20:35 Medoxomil [Edarbi] PO 09/26/24 17:44 1 tablet 40 Mg Tablet) BID CHELITA Administration Dextrose 25 ml 08/26/24 18:13 Dextrose 50%-Water Inj 50 Ml Syringe IV 09/25/24 18:12 Q15MIN PRN BG 50-70 responsive npo pt Dextrose 50 ml 08/26/24 18:13 Dextrose 50%-Water Inj 50 Ml Syringe IV 09/25/24 18:12 Q15MIN PRN BG <50 OR BG <70 & pt unresponsive Glucagon 1 mg 08/26/24 18:13 Glucagon Inj 1 Mg Vial IM Q15MIN PRN BG <70, and no IV access Hydralazine HCl 10 mg 08/26/24 17:56 08/27/24 20:56 Hydralazine Inj 20 Mg/Ml Vial IV 09/25/24 17:55 10 mg Q6HR PRN Administration SBP>185 Insulin Glargine 5 unit 08/29/24 21:00 Insulin Glargine (Lantus) 5 Unit/0.05 Ml (Per 5 Units) SC 09/28/24 20:59 HS [facility] Insulin Human Lispro 0 unit 08/27/24 07:30 08/29/24 08:47 Insulin Lispro (Admelog) 1 Unit/0.01 Ml Unit SC 09/26/24 07:29 1 unit AC CHELITA Administration Protocol Lactulose 20 gm 08/27/24 09:00 08/29/24 08:47 Lactulose Syrup 20 Gm/30 Ml Udc PO 09/26/24 08:59 20 gm QDAY CHELITA Administration Protocol Ondansetron HCl 4 mg 08/26/24 17:50 Ondansetron Inj 2 Mg/Ml Inj 2 Ml IV 09/25/24 17:49 Q6H PRN NAUSEA OR VOMITING Protocol Potassium Chloride 20 meq 08/29/24 21:00 Potassium Chloride 20 Meq Tabcr PO 09/28/24 20:59 BID CHELITA Rivaroxaban 20 mg 08/27/24 09:00 08/29/24 08:47 Rivaroxaban 10 Mg Tablet PO 09/17/24 08:59 20 mg QDAY CHELITA Administration Plan 64-year-old male with a history of hypertension, diabetes, colon cancer, liver cirrhosis presented to the ED from the cancer treatment center due to altered mental status. #Embolic type acute infarcts in the high parietal frontal lobes 08/29/2024: around 11 am patient was assessed and had a rapid response and stroke alert was called at 11:11 AM, due to patient having generalized diffuse weakness, vital signs significant for hypertension and tachycardia, with NIHSS: 16, last known well was 10:30 AM Teleneuro was consulted CT head showed no acute hemorrhage or acute cortical infarct, Head/neck CTA also negative tPA was not administered due to patient being on Xarelto within the past 48 hours as well as history of colon cancer. MRI brain was obtained demonstrating bilateral high parietal infarct small in size, likely embolic will continue with the remainder of stroke workup including echocardiogram with bubble study, will continue with Xarelto per teleneurology recommendations. No antiplatelet therapy at this time. In house neurology team consulted as well. ? Continue Xarelto, per teleneurology recommendations ? Head up of the bed more than 30 degrees ? Aspiration precautions ? Pending MRI brain ? Neurochecks every 4 hours ? Echo with bubble study ? Swallow eval ? In-house neurology consulted #Acute encephalopathy-resolved #Hypertensive urgency-improving CT head negative negative meningeal signs?low suspicion for infectious etiology Patient did present with systolic blood pressure in the 200s tachycardia Patient does have previous history of elevated ammonia levels on prior admissions however ammonia levels negative at this time Patient mentation back to baseline, is AAOx3 - hydralazine 10mg q6hr prn SBP>185 - on carvedilol 12.5mg BID - resumed edarbi as taken at home - Keep K>4, Mg >2 - monitor telemetry - Cx ordered #Hx of Pulmonary embolism found on CTA in July was put on xarelto by cancer treatment center on room air at this time, denies sob +chest pain - continue xarelto 20mg qday #Hypokalemia per med rec patient takes chronic potassium supplementation - resumed as taken at home - replete as necessary #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 SSI ? Hypoglycemia protocol in place Health Maintenance: Disposition: medtele, stroke work up Fluids: None Feeding: carb consistent low Thrombo prophylaxis: xarelto Gastric Ulcer prophylaxis: none CODE STATUS: Full code Case discussed with my attending Dr. Maria Fernanda Woods MD PGY-1 Attending Provider Attestation/Addendum 64-year-old male with multiple comorbidities including hypertension, hyperlipidemia, colon adenocarcinoma with possible mets to the lungs currently being followed up at the cancer treatment center and pulmonary embolus on Xarelto who presented with altered mentation. Furthermore, patient underwent CT head with no evidence of any acute intracranial abnormality and patient does not have any fevers or neck stiffness to suggest an encephalomeningitis. Upon initial encounter, patient is alert and oriented to name, date of and place and denies any focal neurologic deficits. The patient noted to have hypertensive urgency/emergency for which we will admit the patient and control blood pressure. Overnight, patient's mentation is back to baseline. Discussed case with son who stated that he would like him to go home once he is ready to be discharged. Neurology evaluated the patient and given that patient has left eye deviation concerning for cranial nerve palsy for which recommended obtaining another a CT head. Repeat CT head has been ordered and with no evidence of any acute intracranial abnormality and plan was to obtain an MRI. In the morning, patient was evaluated around 10:30 AM and was alert and oriented to name, date of and place and did not have any focal neurologic deficits and thus patient was then wheeled off to the MRI. During reevaluation around 11 AM, patient was noted to have diffuse weakness with left greater than right and altered mentation thus stroke alert was activated. Patient underwent CT head stroke protocol which was negative for any intracranial abnormalities. Furthermore, patient also had an MRI that was done the morning of (prior to the stroke alert being activated and will still be in reviewed by the radiologist) which noted bilateral high parietal infarct likely embolic in etiology. Discussed with teleneurologist the findings and given that patient on Xarelto did not recommend given the patient tPA and recommended continuing Xarelto and holding off on aspirin and Plavix. As for mentation, patient is alert and oriented to name, date of and place however continues to have bilateral weakness with left greater than right. Will obtain stroke orders including echocardiogram to evaluate for PFO given that patient has PE, lipid panel, and neurologic workup..I reviewed above note and agree with findings and plans. I have also personally examined the patient with medicine team and went over assessment and plan with medical team including international account representative and resident physician.
[2024-08-29 11:59] LABS: Basophils % (Auto) 0 % (0-2.5); Eosinophils % (Auto) 0 % (0-10); Hematocrit 37.2 % (41.0-53.0); Hemoglobin 12.7 g/dL (13.5-16.0); INR 1.1 (0.9-1.3); Immature Granulocytes % (Auto) 1 % (0-0); Immature Granulocytes Auto 0.05 Thou/mm3 (0.00-0.00); Lymphocytes # (Auto) 1.5 Thou/mm3 (1.0-4.8); Lymphocytes % (Auto) 16 % (10-50); Mean Corpuscular HGB Conc 34.1 g/dl (31.0-37.0); Mean Corpuscular Hemoglobin 29.7 pg (25.0-35.0); Mean Corpuscular Volume 87 fL (80-100); Monocytes # (Auto) 1.7 Thou/mm3 (0.0-0.8); Monocytes % (Auto) 18 % (0-12); Neutrophils # (Auto) 6.2 Thou/mm3 (1.8-7.7); Neutrophils % (Auto) 66 % (37-80); Nucleated Red Blood Cell % 0 /100 WBC (0); Platelet Count 349 Thou/mm3 (140-440); Prothrombin Time 11.5 Seconds (9.0-12.2); RDW Standard Deviation 50.8 fL (35.1-43.9); Red Blood Count 4.28 Miln/mm3 (4.50-5.90); White Blood Count 9.4 Thou/mm3 (3.8-10.6)
[2024-08-29 12:10] LABS: Alanine Aminotransferase 15 U/L (10-49); Albumin, Serum 3.6 gm/dL (3.4-4.8); Albumin/Globulin Ratio 0.9 (1.2-2.2); Alkaline Phosphatase 98 U/L (46-116); Anion Gap 14 (7-16); Aspartate Amino Transferase 22 U/L (0-34); BUN/Creatinine Ratio 19 Ratio (12-20); Bilirubin,Total 0.6 mg/dL (0.3-1.2); Blood Urea Nitrogen 15 mg/dL (9-23); Calcium 9.4 mg/dL (8.3-10.6); Calcium (Corrected) 9.7 mg/dL (8.5-10.1); Carbon Dioxide 23.5 mMol/L (20.0-31.0); Chloride 93 mMol/L (98-107); Creatinine (Component) 0.8 mg/dL (0.6-1.3); Estimated Creatinine Clearance 72.1 mL/min (>60); Globulin 4.2 gm/dL (2.3-3.5); Glucose 190 mg/dL (74-106); Osmolality,Calculated 266 (275-295); Potassium 3.7 mMol/L (3.4-5.1); Sodium 130 mMol/L (136-145); Total Protein 7.8 gm/dL (5.7-8.2); eGFR > 60 See Note
--- NOTE | 2024-08-29 12:23 | PD.TNEURO ---
Tele Neuro Consultation Consultation Date 08/29/24 Most Recent Vital Signs Last Vital Signs Temp 97.0 F 08/29/24 08:00 Pulse 111 H 08/29/24 11:33 Resp 20 08/29/24 11:33 BP 154/113 H 08/29/24 11:33 Pulse Ox 98 08/29/24 11:33 O2 Del Method Room Air 08/29/24 08:00 Laboratory-Coagulation Panel PT 11.5 Seconds (9.0-12.2) 08/29/24 11:25 INR 1.1 (0.9-1.3) 08/29/24 11: APTT 24.8 Seconds (22.0-36.0) 08/26/24 12:20 Consultation Narrative [facility] Tele[facility]rology Consult [facility] Patient Name:???Lloyd Reyes Date of :???1960 Identification Number:??? Date of Service:???08/29/2024 11:13:54 Diagnosis:?M62.81 - Generalized Muscle Weakness Impression: ?64 yo M who is admitted due to acute encephalopathy who is stroke alerted due to new onset generalized weakness. NIHSS 16 notable for significant weakness in all 4 extremities. He is not a candidate for thrombolytic due to xarelto use within the past 48 hours as well as colon cancer. CTH and CTA Head and Neck were obtained emergently and are negative for acute changes, including no hemorrhage or LVO. ? ?Given the clinical change, it would be reasonable to repeat the MRI Brain w/o contrast to rule out an acute infarct. The previous MRI had motion artifact as well. OK to continue xarelto from a neurologic perspective. Our recommendations are outlined below. Recommendations: ? Stroke/Telemetry Floor ? Neuro Checks (Q4) ? Bedside Swallow Eval ?MRI Brain w/o contrast Sign Out: ? Discussed with Primary Team Advanced Imaging:CTA Head and Neck Completed. LVO:No Patient is not a candidate for M[facility] Metrics: Last Known Well: 08/29/2024 10:30:00 Dispatch Time: 08/29/2024 11:13:53 Initial Response Time: 08/29/2024 11:16:47Symptoms: diffuse weakness. Initial patient interaction: 08/29/2024 11:30:28 NIHSS Assessment Completed: 08/29/2024 11:37:21Patient is not a candidate for Thrombolytic. Thrombolytic Medical Decision: 08/29/2024 11:37:22Patient was not deemed candidate for Thrombolytic because of following reasons: Use of NOAC in last 48 hrs. . GI malignancy . CT Head: I personally reviewed all the CT images that were available to me and it showed: no acute hemorrhage or acute core infarct Primary Provider Notified of Diagnostic Impression and Management Plan on: 08/29/2024 12:13:52 Spoke With: Dr. Dilan Woods Able to Reach 08/29/2024 12:13:52 History of Present Illness:Patient is a 64 year old Male. Inpatient stroke alert was called for symptoms of diffuse weakness. Patient is stroke alerted due to diffuse weakness. His LKW was 10:30am. He has been encephalopathic during admission, however was previously moving all his extremities. He had a CTH on 08/28 (yesterday) that was negative for acute changes. He is currently admitted for acute encephalopathy, likely hypertensive in the setting of elevated BP on admission. He also has a history of colon cancer, last chemo 1 month ago. He is also on xarelto for a PE. ? Past Medical History: ?Hypertension ?Diabetes Mellitus ?There is no history of Stroke Other PMH:? PE on xarelto, stage III colon cancer unable to obtain due to:?? Patient Is Confused Medications: Anticoagulant use:??Yes?xarelto No Antiplatelet use Reviewed EMR for current medications Allergies:? Reviewed Allergies Unable To Obtain Due To:?Patient Is Confused Social History: Unable To Obtain Due To Patient Status :?Patient Is Confused Family History: Family History Cannot Be Obtained Because:Patient Is Confused ROS :?ROS Cannot Be Obtained Because:? Patient Is Confused Past Surgical History: Past Surgical History Cannot Be Obtained Because: Patient Is Confused There Is No Surgical History Contributory To Today?s Visit ? Examination: BP(150/113),?Pulse(85), 1A: Level of Consciousness - Arouses to minor stimulation?+ 1 1B: Ask Month and Age - Both Questions Right?+ 0 1C: Blink Eyes & Squeeze Hands - Performs 1 Task?+ 1 2: Test Horizontal Extraocular Movements - Normal?+ 0 3: Test Visual Leo - No Visual Loss?+ 0 4: Test Facial Palsy (Use Grimace if Obtunded) - Normal symmetry?+ 0 5A: Test Left Arm Motor Drift - No Effort Against [place]?+ 3 5B: Test Right Arm Motor Drift - No Effort Against [place]?+ 3 6A: Test Left Leg Motor Drift - No Movement?+ 4 6B: Test Right Leg Motor Drift - No Movement?+ 4 7: Test Limb Ataxia (FNF/Heel-Bates) - No Ataxia?+ 0 8: Test Sensation - Normal; No sensory loss?+ 0 9: Test Language/Aphasia - Normal; No aphasia?+ 0 10: Test Dysarthria - Normal?+ 0 11: Test Extinction/Inattention - No abnormality?+ 0 NIHSS Score:?16 Pre-Morbid Modified Jonh Scale:3 Points = Moderate disability; requiring some help, but able to walk without assistance Spoke with :?Dr. Dilan Woods This consult was conducted in real time using interactive audio and video technology. Patient was informed of the technology being used for this visit and agreed to proceed. Patient located in hospital and provider located at home/office setting. Patient is being evaluated for possible acute neurologic impairment and high probability of imminent or life-threatening deterioration. I spent total of 65 minutes providing care to this patient, including time for face to face visit via telemedicine, review of medical records, imaging studies and discussion of findings with providers, the patient and/or family. Dr Isaiah Day [facility] For Inpatient follow-up with [facility] physician please call [facility] at . As we are not an outpatient service for any post hospital discharge needs please contact the hospital for assistance. If you have any questions for the [facility] physicians or need to reconsult for clinical or diagnostic changes please contact us via [facility] at . ?
[2024-08-29 12:33] LABS: Phosphorous 3.4 mg/dL (2.4-5.1)
--- NOTE | 2024-08-29 12:38 | ECHO_ITS ---
Transthoracic Echo Report Ht (in): 64 Wt (lb): 120 Exam Location: Echo Lab Status: Inpatient [place] Worker: Desiree Alfred Indications: Procedure Performed: BP: 154 / 113 HR: 96 Technical Quality: Very technically difficult study MEASUREMENTS (Male / Female) Normal Values 2D ECHO LV Diastolic Diameter PLAX 3.7 cm 4.2 - 5.9 / 3.9 - 5.3 cm LV Systolic Diameter PLAX 2.6 cm IVS Diastolic Thickness 1.1 cm 0.6 - 1.0 / 0.6 - 0.9 cm LVPW Diastolic Thickness 1.2 cm 0.6 - 1.0 / 0.6 - 0.9 cm LV Relative Wall Thickness 0.6 LVOT Diameter 2.0 cm Aortic Root Diameter 3.1 cm LA Systolic Diameter LX 2.8 cm 3.0 - 4.0 / 2.7 - 3.8 cm M-MODE Aortic Root Diameter MM 2.3 cm AV Cusp Separation MM 1.7 cm DOPPLER AV Peak Velocity 94.0 cm/s AV Peak Gradient 3.5 mmHg AV Mean Gradient 2.0 mmHg AV Velocity Time Integral 18.1 cm LVOT Peak Velocity 73.2 cm/s LVOT Peak Gradient 2.1 mmHg LVOT Velocity Time Integral 13.9 cm LVOT Cardiac Index 2675.9 cm?/min?m? AV Area Cont Eq vti 2.4 cm? AV Area Cont Eq pk 2.4 cm? MV Area PHT 7.3 cm? Mitral E Point Velocity 52.9 cm/s Mitral A Point Velocity 89.7 cm/s Mitral E to A Ratio 0.6 LV E' Lateral Velocity 8.5 cm/s Mitral E to LV E' Lateral Ratio 6.2 LV E' Septal Velocity 8.3 cm/s Mitral E to LV E' Septal Ratio 6.4 FINDINGS Left Ventricle Normal left ventricular size and systolic function with no obvious regional wall motion abnormalities. Mild LVH. There is grade I diastolic dysfunction of the left ventricle (impaired relaxation pattern). The ejection fraction is visually estimated at 55-60%. Right Ventricle The right ventricle is normal in size and systolic function. Left Atrium The left atrium is normal by two-dimensional, color flow and Doppler imaging with no structural abnormalities, no thrombus formation present. Right Atrium The right atrium is normal by two-dimensional imaging, color flow and Doppler imaging with no structural abnormalities, no thrombus formation present. Atrial Septum The interatrial septum appears normal with no evidence of a shunt. Aorta The aorta is normal by two-dimensional, color flow and Doppler interrogation. Mitral Valve The mitral valve is normal by two-dimensional, color flow and Doppler interrogation. There is no significant mitral valve regurgitation, stenosis or prolapse. Aortic Valve The aortic valve is trileaflet and normal by two-dimensional, color flow and Doppler interrogation. There is no significant aortic valve regurgitation. Tricuspid Valve The tricuspid valve is normal by two-dimensional, color flow and Doppler interrogation. There is trace tricuspid valve regurgitation. Pulmonic Valve The pulmonic valve is not well visualized. There is no significant pulmonic valve regurgitation. Vessels IVC is not well visualized. Pericardium There is a tiny, hemodynamically insignificant pericardial effusion. CONCLUSIONS Indication: stroke protocol The transthoracic study is normal by two-dimensional, color flow imaging and Doppler interrogation. Normal size cardiac chambers No cardiac thrombi Negative bubble study Normal left ventricular size and function. Mild LVH. LVEF Estimated at 55-60%. The right ventricle is normal in size and systolic function. Trace mitral and trace tricuspid regurgitation Whitney Tipton (Electronically Signed) Final Date: 30 Aug 2024 08:52
--- NOTE | 2024-08-29 13:14 | PCS.ST ---
Swallow re-evaluation. See report for details. No significant change in oral/pharyngeal function. Recommend Puree diet/reg liquids for now d/t AMS. ST will follow up
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
--- NOTE | 2024-08-29 15:17 | PC.NURSE ---
MRI called to say the MRI of head can't be done unless some sedative is on board, put an ativan order in, I left a msg with MRI to see when the scan could be done
--- NOTE | 2024-08-29 17:20 | PD.RESPRO ---
Documentation for date of: 08/29/24 Subjective Subjective Interval history: Patient was seen and examined by the bedside. No acute overnight events. In the morning patient was found to be generally weak, LKN was 10:30 AM. Teleneuro was consulted patient was not a candidate for tPA due to use of Xarelto in previous 48 hours and malignancy, CT head was negative for acute stroke, MRI showed multiple bilateral high occipital lobe infarcts, possibly thromboembolic or watershed. Family at the bedside, discussed the plan of care, they were given time to ask questions, all question were answered to the satisfaction. Exam Vital Signs Temp Pulse Resp BP Pulse Ox O2 Del Method 98.1 F 100 18 130/99 H 99 Room Air 08/29/24 16:00 08/29/24 16:00 08/29/24 16:00 08/29/24 16:00 08/29/24 16:08/29/24 16:00 Narrative Exam Gen: Well-developed and well-nourished. HEENT: NCAT, PERRLA, EOMI, MMM, anicteric conjunctivae. CVS: normal S1 and S2. RRR. No M/R/G. Resp: CTA B/L. No rhonchi, rales, crackles or wheezing. Abd: soft, non-tender, non-distended. BS+ in all 4 quadrants. MSK: Good ROM in BUE & BLE. No edema or rash. Neuro: lert and oriented x3 Cranial nerves:L>R, L non-reactive to light, bilateral pterygium. Lateral deviation of left eye, decreased medial adduction. Left eyelid is lowered. Speech and language: Incomprehensible, does not recognize the son. Motor system: Tone and bulk: Normal: Strength 0/5 right extremities, 1-2 in left extremities.. Deep tendon reflexes: 1+ bilaterally symmetrical. Plantar reflex: Downgoing bilaterally. Sensory system: Impossible to assess. Coordination: not tested Gait: Not tested. Romberg: Not tested. No signs of meningeal irritation noted. NIHSS: 16 1A: Level of Consciousness - Arouses to minor stimulation?+ 1 1B: Ask Month and Age - Both Questions Right?+ 0 1C: Blink Eyes & Squeeze Hands - Performs 1 Task?+ 1 2: Test Horizontal Extraocular Movements - Normal?+ 0 3: Test Visual Leo - No Visual Loss?+ 0 4: Test Facial Palsy (Use Grimace if Obtunded) - Normal symmetry?+ 0 5A: Test Left Arm Motor Drift - No Effort Against [place]?+ 3 5B: Test Right Arm Motor Drift - No Effort Against [place]?+ 3 6A: Test Left Leg Motor Drift - No Movement?+ 4 6B: Test Right Leg Motor Drift - No Movement?+ 4 7: Test Limb Ataxia (FNF/Heel-Bates) - No Ataxia?+ 0 8: Test Sensation - Normal; No sensory loss?+ 0 9: Test Language/Aphasia - Normal; No aphasia?+ 0 10: Test Dysarthria - Normal?+ 0 11: Test Extinction/Inattention - No abnormality?+ 0 Psych: impossible to assess. Objective Labs 08/29/24 21:43 08/29/24 21:43 Labs: Laboratory Results - last 24 hr 08/29/24 08/29/24 08/29/24 04:39 11:25 11:35 WBC 7.2 9.4 RBC 4.08 L 4.28 L Hgb 11.9 L 12.7 L Hct 35.0 L 37.2 L MCV 86 87 MCH 29.2 29.7 MCHC 34.0 34.1 RDW Std Deviation 50.4 H 50.8 H Plt Count 330 349 Neut % (Auto) 64 66 Lymph % (Auto) 17 16 [place] % (Auto) 19 H 18 H Eos % (Auto) 0 0 Baso % (Auto) 0 0 Neut # (Auto) 4.6 6.2 Lymph # (Auto) 1.2 1.5 [place]ountain # (Auto) 1.3 H 1.7 H Eos # (Auto) 0.0 0.0 Baso # (Auto) 0.0 0.0 Immature Gran # (Auto) 0.02 H 0.05 H Absolute Nucleated RBC 0.00 0.00 Immature Gran % 0 1 H Nucleated RBC % 0 0 PT 11.5 INR 1.1 Sodium 130 L 130 L Cancelled Potassium 3.0 L 3.7 D Cancelled Chloride 88 L 93 L Cancelled Carbon Dioxide 26.8 23.5 Cancelled Anion Gap 15 14 Cancelled BUN 12 15 Cancelled Creatinine 0.7 0.8 Cancelled Estim Creat Clear Calc 82.4 72.1 Cancelled eGFR > 60 > 60 Cancelled BUN/Creatinine Ratio 17 19 Cancelled Glucose 168 H 190 H Cancelled Calculated Osmolality 264 L 266 L Cancelled Calcium 9.5 9.4 Cancelled Corrected Calcium 9.9 9.7 Cancelled Phosphorus 3.4 3.4 Cancelled Magnesium 2.0 Total Bilirubin 0.5 0.6 AST 20 22 ALT 15 15 Alkaline Phosphatase 93 98 Total Protein 7.6 7.8 Albumin 3.5 3.6 Cancelled Globulin 4.1 H 4.2 H Albumin/Globulin Ratio 0.9 L 0.9 L ABG Interpretation ABG results: 08/26/24 17:27 ABG pH 7.54 H ABG pCO2 35 ABG pO2 95 ABG HCO3 30 H ABG O2 Saturation 99 H ABG Base Excess 7 H Quality Measures Quality Measures VTE prophylaxis Assessment & Plan Assessment Current Active Medications: Generic Name Dose Route Start Last Admin Trade Name Freq PRN Reason Stop Dose Admin Acetaminophen 650 mg 08/26/24 17:50 Acetaminophen 325 Mg Tablet PO 09/25/24 17:49 Q6H PRN Fever >101.5 Acetaminophen 1,000 mg 08/29/24 09:30 Acetaminophen 500 Mg Tablet PO 09/25/24 17:49 Q6H PRN PAIN SCALE 1-3 (mild Aspirin 81 mg 08/29/24 16:15 Aspirin Ec 81 Mg Tabec PO 09/28/24 16:14 QDAY CHELITA Carvedilol 12.5 mg 08/28/24 17:30 08/29/24 08:47 Carvedilol 12.5 Mg Tablet PO 09/27/24 17:29 12.5 mg BIDWM CHELITA Administration (Azilsartan 0 ea 08/27/24 17:45 08/28/24 20:35 Medoxomil [Edarbi] PO 09/26/24 17:44 1 tablet 40 Mg Tablet) BID CHELITA Administration Dextrose 25 ml 08/26/24 18:13 Dextrose 50%-Water Inj 50 Ml Syringe IV 09/25/24 18:12 Q15MIN PRN BG 50-70 responsive npo pt Dextrose 50 ml 08/26/24 18:13 Dextrose 50%-Water Inj 50 Ml Syringe IV 09/25/24 18:12 Q15MIN PRN BG <50 OR BG <70 & pt unresponsive Glucagon 1 mg 08/26/24 18:13 Glucagon Inj 1 Mg Vial IM Q15MIN PRN BG <70, and no IV access Hydralazine HCl 10 mg 08/26/24 17:56 08/27/24 20:56 Hydralazine Inj 20 Mg/Ml Vial IV 09/25/24 17:55 10 mg Q6HR PRN Administration SBP>185 Insulin Glargine 5 unit 08/29/24 21:00 Insulin Glargine (Lantus) 5 Unit/0.05 Ml (Per 5 Units) SC 09/28/24 20:59 HS CHELITA Insulin Human Lispro 0 unit 08/27/24 07:30 08/29/24 08:47 Insulin Lispro (Admelog) 1 Unit/0.01 Ml Unit SC 09/26/24 07:29 1 unit AC CHELITA Administration Protocol Lactulose 20 gm 08/27/24 09:00 08/29/24 08:47 Lactulose Syrup 20 Gm/30 Ml Udc PO 09/26/24 08:59 20 gm QDAY CHELITA Administration Protocol Ondansetron HCl 4 mg 08/26/24 17:50 Ondansetron Inj 2 Mg/Ml Inj 2 Ml IV 09/25/24 17:49 Q6H PRN NAUSEA OR VOMITING Protocol Potassium Chloride 20 meq 08/29/24 21:00 Potassium Chloride 20 Meq Tabcr PO 09/28/24 20:59 BID CHELITA Rivaroxaban 20 mg 08/27/24 09:00 08/29/24 08:47 Rivaroxaban 10 Mg Tablet PO 09/17/24 08:59 20 mg QDAY CHELITA Administration Plan The patient is a 64-year-old male with a previous medical history of stage III colon cancer status post right hemicolectomy on chemotherapy, asymptomatic segmental pulmonary embolism on Xarelto, liver cirrhosis, hypertension and diabetes who was brought to the ED due to altered mentation that started approximately 5 to 6 days ago. Most of the history was taken through chart review. #Cranial III palsy Ddx: acute brainstem stroke vs diabetic cranial neuropathy Plan: - ordered MRI brain - continue with blood sugar control #Acute encephalopathy Ddx: Metabolic encephalopathy vs hypertensive encephalopathy. Imaging is negative for acute intracranial pathology. Plan: - avoid opiates, benzodiazepines and anticholinergics if possible - urine, blood cultures negative - BP control, follow-up with PCP outpatient - syphilis serology negative, TSH, B12, folate normal - UDS negative - repeat head CT ordered #General weakness #Hypokalemia Plan: - replete as necessary #Stage III colon cancer #Hypertension #T2DM #Pulmonary embolism - management per primary team Plan of care discussed with attending Dr. Louie. Attending Provider Attestation/Addendum I personally have seen and examined the patient at the bedside and I agree with resident's findings, assessment and plan of care. Patient's condition is very critical and is prognosis is guarded.
[2024-08-29] MEDS: LORazepam 2 MG/ML VIAL IVP (18:22)
--- NOTE | 2024-08-29 19:30 | PC.NURSE ---
PATIENT BACK FROM MRI, SEDATED FROM ATIVAN 2MG, VSS.
--- NOTE | 2024-08-29 20:38 | PC.NURSE ---
Addendum entered by Justine Phoenix RN 08/29/24 23:21: [employer]ATOR called [phone], patient will be transferred to ICU to be intubated as GCS 0f 3. Original Note: Called hospitalist Dr. Salas and inform that patient had a bloody emesis, patient was not responding, was given ativan 2mg for MRI to be done. MD will come to assess patient, VSS.
--- NOTE | 2024-08-29 21:09 | XR_ITS ---
Examination: AP chest single view TECHNIQUE: Portable supine AP chest single view Date and time: August 29, 2024 2138 hours Comparison August 26, 2024 INDICATIONS: Hypoxic respiratory failure postintubation FINDINGS: Normal heart size No aspiration pneumonia Endotracheal tube tip 3 cm from the navya Right internal jugular Port-A-Cath tip right atrium IMPRESSION: No aspiration pneumonia Endotracheal tube tip 3 cm above navya Orogastric tube tip distal stomach versus duodenal bulb
[2024-08-29] MEDS: ETOMIDATE INJ 2 MG/ML VIAL 10 ML 20 MG IVP (21:22)
[2024-08-29] MEDS: ROCURONIUM INJ 10 MG/ML VIAL 10 ML 50 MG IV (21:22)
--- NOTE | 2024-08-29 21:43 | PD.RESPROC ---
Procedures Procedure Date / Time 08/29/24 2198 Intubation Indication(s): inability to protect airway Informed consent obtained: procedure done urgently Time out done, and the following verified: correct patient, side and site, procedure and patient position Sedative: etomidate Mg given: 21 Paralytic: rocuronium Mg given: 50 Laryngoscope: Baez Assist device used: fiber optic device ET tube size: 4 ET tube uncuffed: Yes Tube secured depth (cm): 25 Tube secured location: teeth Tube placement confirmation: visualized tube passing through cords, equal breath sounds bilaterally, no breath sounds over epigastrium and confirmation by capnometry Patient tolerated procedure: well EBL(ml): 0 Intubation complications: none
[2024-08-29] MEDS: PROPOFOL 1,000 MG IVPB 1,000 MG/100 ML VIAL 1.639 MG IV (21:45)
[2024-08-29] MEDS: fentaNYL 2,500 MCG/250 ML BAG 2,500 MCG/250 ML BAG IV (21:45)
[2024-08-29 21:53] LABS: Base Excess 10 (-3-3); HCO3 34 mEq/L (20-26); Inspired Oxygen, FIO2 21 %; O2 Saturation 95 % (91-98); PCO2 40 mmHg (32.0-48.0); PO2 67 mmHg (83-108); pH, Arterial 7.54 (7.35-7.45)
[2024-08-29 21:54] LABS: Allen Test Performed/OK; Puncture Site Left Radial
--- NOTE | 2024-08-29 22:02 | PD.RESEVENT ---
Documentation for date of: 08/29/24 Event Note Event Note: Mr. Garner is a 64-year-old male with past medical history of colon cancer, PE on Xarelto, hypertension, type 2 diabetes, liver cirrhosis who came into [facility] with a chief complaint of encephalopathy. Patient has been admitted at [facility] since August 26 with a concern for acute encephalopathy admitted for suspicion for stroke. During the hospitalization patient had MRI of the brain which revealed bilateral high parietal infarcts that appear to be embolic in nature. Later on August 29 another stroke alert was called for the patient and telestroke was consulted due to diffuse weakness. His NIHSS score was noted to be 16 ICU was consulted in regards to a low GCS and inability to protect airway. At that point during evaluation ICU noted that the patient had a GCS of 10 and was able to answer questions. At around 9 PM received a call from bedside nurse stating that the patient had another episode of hematemesis and was obtunded. Came to bedside to evaluate noted the patient had a GCS of 3 and pupils were unreactive to light so at that point decision was made to take the patient to the ICU for intubation due to inability to protect airways. Patient was intubated successfully in the ICU and then immediately went into respiratory arrest and so CODE BLUE was called. Patient was coded for a total of 4 minutes where 2 rounds of epinephrine and 2 A of bicarbonate were given and ROSC was successfully obtained. Bedside echo revealed good cardiac contractility and patient was placed on propofol and fentanyl for sedation. Family was contacted and informed of the event and were recommended to come to the hospital to be at bedside for their family member. Qian Nelson M.D. PGY-3 I, Dr. Klein, have reviewed the history, exam, and assessment of the patient. I have evaluated the patient independently and agree with the plan of care documented by the resident Dr. Nelson. All diagnostic studies were reviewed and discussed. I confirm the diagnosis as documented by the resident. I was present during the Medical Decision Making for this patient. The patient?s plan of care was created between myself and the resident and consistent with our discussion of the patient?s case.
[2024-08-29 22:06] LABS: Hematocrit 32.6 % (41.0-53.0); Hemoglobin 11.2 g/dL (13.5-16.0)
[2024-08-29] MEDS: Norepinephrine/D5W 8mg/250ml 8 MG/250 ML BAG 5.122 MG IV (22:12)
[2024-08-29 22:15] LABS: Basophils % (Auto) 0 % (0-2.5); Eosinophils % (Auto) 0 % (0-10); Hematocrit 31.9 % (41.0-53.0); Hemoglobin 11.2 g/dL (13.5-16.0); Immature Granulocytes % (Auto) 4 % (0-0); Immature Granulocytes Auto 0.32 Thou/mm3 (0.00-0.00); Lymphocytes % (Auto) 24 % (10-50); Mean Corpuscular HGB Conc 35.1 g/dl (31.0-37.0); Mean Corpuscular Hemoglobin 29.5 pg (25.0-35.0); Mean Corpuscular Volume 84 fL (80-100); Monocytes # (Auto) 0.9 Thou/mm3 (0.0-0.8); Monocytes % (Auto) 10 % (0-12); Neutrophils # (Auto) 5.4 Thou/mm3 (1.8-7.7); Neutrophils % (Auto) 63 % (37-80); Nucleated Red Blood Cell % 0 /100 WBC (0); Platelet Count 300 Thou/mm3 (140-440); RDW Standard Deviation 50.1 fL (35.1-43.9); White Blood Count 8.6 Thou/mm3 (3.8-10.6)
--- NOTE | 2024-08-29 22:27 | PD.RESPRO ---
Documentation for date of: 08/29/24 Subjective Subjective Interval history: Mr. Garner is a 64-year-old male with past medical history of colon cancer with last chemotherapy being 1 week prior, type 2 diabetes, hypertension, history of pulmonary emboli on Xarelto, liver cirrhosis who was brought into [facility] from the cancer treatment center due to altered mentation. According to patient's family patient had been experiencing signs of encephalopathy for 1 week and upon initial presentation he was only answering questions appropriately for his name and birthdate. Upon initial presentation patient was found to have a systolic blood pressure in the 200s and neurology was consulted in regards to his encephalopathy. A CT head was done which was negative for signs of stroke or bleeding. The following day on August 27, 2024 patient was found to be alert and oriented x 3 and appears to have been back at his baseline. Later in the day he was evaluated by neurology which found that he again appeared to be altered and more history was obtained from patient's son at bedside who had informed the neurology team that patient had been experiencing hallucinations prior to coming to the hospital and had been having decreased p.o. intake with significant nausea and vomiting since his previous chemotherapy session 2 weeks prior. On August 28, 2024 patient appeared to exhibit signs clinically in regards to stroke with left eye deviation and left eye dilation and nonreactive to light. Concern was given for a cranial 3rd nerve palsy so patient underwent an MRI of the brain. A rapid response was called for the patient around 11 AM this morning due to generalized diffuse weakness and hypertension and tachycardia with a stroke alert being called due to NIHSS of 16. MRI for the patient revealed bilateral high parietal infarcts that were small in size and suspected to be embolic in source. Later in the day ICU was consulted in regards to inability to protect airway for the patient with low GCS. At bedside evaluation by the ICU team it was noted that he had a GCS of 10 and was able to protect his airways and was hemodynamically stable. Later in the evening around 9 PM floor team was consulted in regards for bedside evaluation due to the fact that patient had an episode of hematemesis and remained unresponsive. Upon bedside evaluation it was noted the patient had a GCS of 3 and pupils were nonreactive to light so decision was made to protect patient's airway with mechanical intubation. Patient was brought to the ICU for intubation and was successfully intubated under the care of emergency room physician but immediately went into respiratory arrest and CODE BLUE was initiated. Patient underwent chest compressions for a period of 4 minutes and 2 pushes of epinephrine with 2 pushes of bicarb ampules were given with successful ROSC obtained at 9:33 PM 08/29/2024: Patient is now admitted to the ICU for management of acute encephalopathy secondary to stroke and postcardiac arrest care. ABG reveals a pH of 7.54 and CO2 of 40. Will repeat head CT given the fact that patient's pupils remain unreactive and he was not responsive to painful or verbal stimuli. Family was called and made aware about the patient's condition and they will be coming to bedside to be with him. Labs remain pending following cardiac arrest. Will place the patient on Cheetah due to development of hypotension and assess for fluid responsiveness. Exam Vital Signs Temp Pulse Resp BP Pulse Ox O2 Del Method 98.4 F 108 H 20 162/107 H 97 Room Air 08/29/24 21:08 08/29/24 21:08 08/29/24 21:08 08/29/24 21:08 08/29/24 21:08 08/29/24 20:00 Narrative Exam Gen: Thin and frail appearing with a GCS of 3 HEENT: Pupils appear mildly dilated and unresponsive to light CVS: normal S1 and S2. RRR. No M/R/G. Resp: Bilateral rhonchi noted. Abd: soft, non-tender, non-distended. BS+ in all 4 quadrants. MSK: Unable to assess range of motion no edema or rash. Neuro: Previous NIHSS of 16. Currently patient is unresponsive so unable to assess. Individual cranial nerves not tested. Objective Labs 08/29/24 21:43 08/29/24 11:25 Labs: Laboratory Results - last 24 hr 08/29/24 08/29/24 08/29/24 04:39 11:25 11:35 WBC 7.2 9.4 RBC 4.08 L 4.28 L Hgb 11.9 L 12.7 L Hct 35.0 L 37.2 L MCV 86 87 MCH 29.2 29.7 MCHC 34.0 34.1 RDW Std Deviation 50.4 H 50.8 H Plt Count 330 349 Neut % (Auto) 64 66 Lymph % (Auto) 17 16 [place] % (Auto) 19 H 18 H Eos % (Auto) 0 0 Baso % (Auto) 0 0 Neut # (Auto) 4.6 6.2 Lymph # (Auto) 1.2 1.5 [place] # (Auto) 1.3 H 1.7 H Eos # (Auto) 0.0 0.0 Baso # (Auto) 0.0 0.0 Immature Gran # (Auto) 0.02 H 0.05 H Absolute Nucleated RBC 0.00 0.00 Immature Gran % 0 1 H Nucleated RBC % 0 0 PT 11.5 INR 1.1 Puncture Site ABG pH ABG pCO2 ABG pO2 ABG HCO3 ABG O2 Saturation ABG Base Excess FiO2 Sodium 130 L 130 L Cancelled Potassium 3.0 L 3.7 D Cancelled Chloride 88 L 93 L Cancelled Carbon Dioxide 26.8 23.5 Cancelled Anion Gap 15 14 Cancelled BUN 12 15 Cancelled Creatinine 0.7 0.8 Cancelled Estim Creat Clear Calc 82.4 72.1 Cancelled eGFR > 60 > 60 Cancelled BUN/Creatinine Ratio 17 19 Cancelled Glucose 168 H 190 H Cancelled Calculated Osmolality 264 L 266 L Cancelled Calcium 9.5 9.4 Cancelled Corrected Calcium 9.9 9.7 Cancelled Phosphorus 3.4 3.4 Cancelled Magnesium 2.0 Total Bilirubin 0.5 0.6 AST 20 22 ALT 15 15 Alkaline Phosphatase 93 98 Total Protein 7.6 7.8 Albumin 3.5 3.6 Cancelled Globulin 4.1 H 4.2 H Albumin/Globulin Ratio 0.9 L 0.9 L 08/29/24 08/29/24 21:43 21:46 WBC RBC Hgb 11.2 L Hct 32.6 L MCV MCH MCHC RDW Std Deviation Plt Count Neut % (Auto) Lymph % (Auto) [place] % (Auto) Eos % (Auto) Baso % (Auto) Neut # (Auto) Lymph # (Auto) [place] # (Auto) Eos # (Auto) Baso # (Auto) Immature Gran # (Auto) Absolute Nucleated RBC Immature Gran % Nucleated RBC % PT INR Puncture Site Left Radial ABG pH 7.54 H ABG pCO2 40 ABG pO2 67 L ABG HCO3 34 H ABG O2 Saturation 95 ABG Base Excess 10 H FiO2 21 Sodium Potassium Chloride Carbon Dioxide Anion Gap BUN Creatinine Estim Creat Clear Calc eGFR BUN/Creatinine Ratio Glucose Calculated Osmolality Calcium Corrected Calcium Phosphorus Magnesium Total Bilirubin AST ALT Alkaline Phosphatase Total Protein Albumin Globulin Albumin/Globulin Ratio ABG Interpretation ABG results: 08/26/24 08/29/24 17:27 21:46 ABG pH 7.54 H 7.54 H ABG pCO2 35 40 ABG pO2 95 67 L ABG HCO3 30 H 34 H ABG O2 Saturation 99 H 95 ABG Base Excess 7 H 10 H Quality Measures Quality Measures VTE prophylaxis Assessment & Plan Assessment Current Active Medications: Generic Name Dose Route Start Last Admin Trade Name Freq PRN Reason Stop Dose Admin Acetaminophen 650 mg 08/26/24 17:50 Acetaminophen 325 Mg Tablet PO 09/25/24 17:49 Q6H PRN Fever >101.5 Acetaminophen 1,000 mg 08/29/24 09:30 Acetaminophen 500 Mg Tablet PO 09/25/24 17:49 Q6H PRN PAIN SCALE 1-3 (mild Aspirin 81 mg 08/29/24 16:15 08/29/24 18:33 Aspirin Ec 81 Mg Tabec PO 09/28/24 16:14 Not Given QDAY CHELITA Carvedilol 12.5 mg 08/28/24 17:30 08/29/24 18:34 Carvedilol 12.5 Mg Tablet PO 09/27/24 17:29 Not Given BIDWM CHELITA (Azilsartan 0 ea 08/27/24 17:45 08/29/24 18:33 Medoxomil [Edarbi] PO 09/26/24 17:44 Not Given 40 Mg Tablet) BID CHELITA Dextrose 25 ml 08/26/24 18:13 Dextrose 50%-Water Inj 50 Ml Syringe IV 09/25/24 18:12 Q15MIN PRN BG 50-70 responsive npo pt Dextrose 50 ml 08/26/24 18:13 Dextrose 50%-Water Inj 50 Ml Syringe IV 09/25/24 18:12 Q15MIN PRN BG <50 OR BG <70 & pt unresponsive Glucagon 1 mg 08/26/24 18:13 Glucagon Inj 1 Mg Vial IM Q15MIN PRN BG <70, and no IV access Hydralazine HCl 10 mg 08/26/24 17:56 08/27/24 20:56 Hydralazine Inj 20 Mg/Ml Vial IV 09/25/24 17:55 10 mg Q6HR PRN Administration SBP>185 Insulin Glargine 5 unit 08/29/24 21:00 Insulin Glargine (Lantus) 5 Unit/0.05 Ml (Per 5 Units) SC 09/28/24 20:59 HS CHELITA Insulin Human Lispro 0 unit 08/27/24 07:30 08/29/24 18:33 Insulin Lispro (Admelog) 1 Unit/0.01 Ml Unit SC 09/26/24 07:29 Not Given AC CHELITA Protocol Lactulose 20 gm 08/27/24 09:00 08/29/24 08:47 Lactulose Syrup 20 Gm/30 Ml Udc PO 09/26/24 08:59 20 gm QDAY CHELITA Administration Protocol Ondansetron HCl 4 mg 08/26/24 17:50 Ondansetron Inj 2 Mg/Ml Inj 2 Ml IV 09/25/24 17:49 Q6H PRN NAUSEA OR VOMITING Protocol Potassium Chloride 20 meq 08/29/24 21:00 08/29/24 22:21 Potassium Chloride 20 Meq Tabcr PO 09/28/24 20:59 Not Given BID CHELITA Rivaroxaban 20 mg 08/27/24 09:00 08/29/24 08:47 Rivaroxaban 10 Mg Tablet PO 09/17/24 08:59 20 mg QDAY CHELITA Administration Plan Neurology Problem: Acute encephalopathy secondary to stroke DDx: Diagnostic Test:Multiple acute embolic type infarcts in the right temporal lobe, right occipital lobe, posterior left corpus callosum, posterior medial left parietal lobe and multiple foci in high parietal lobes bilaterally. Treatment Plan: Will hold Xarelto due to complaints of hematemesis. NIHSS 16. Will order to assess for hyperammonemia being source of encephalopathy but low degree of suspicion. Will attempt to discontinue propofol and fentanyl to assess for baseline mentation Treatment Review: Cardiovascular Problem: Shock DDx: Currently undifferentiated with concern for neurogenic due to multiple embolic stroke Diagnostic Test: Will place the patient on Cheetah to assess for fluid responsiveness and order cardiac echo exam Treatment Plan: Will initiate Levophed to maintain a MAP greater than 65 or systolic blood pressure greater than 90 Treatment Review: History of hypertension but we will hold antihypertensives due to shock state. Will attempt to discontinue propofol and fentanyl to assess for neurovascular state Respiratory Problem: Respiratory failure with inability to protect airway and bradypnea DDx: Diagnostic Test: ABG reveals pH of 7.54 and a CO2 of 40. Repeat ABG at 5 AM with repeat chest x-ray at 5 AM. Treatment Plan: Current ventilator settings tidal volume of 375, RR 18, PEEP 5.0, and FiO2 of 100%. Treatment Review: GI and F/E/N Problem: History of cirrhosis DDx: Diagnostic Test: Will order ammonia levels to assess for hyperammonemia. CMP pending. Will order electrolytes to see if patient is a candidate for electrolyte repletion. Treatment Plan: Started the patient on Protonix. OG tube in place. Will resume feeds tomorrow Treatment Review: Renal Problem: Stable, NAD but CMP remains pending DDx: Diagnostic Test: Lactic acid 4.2 likely in the setting of cardiac arrest Treatment Plan: Gave the patient 2 A of bicarbonate and ABG reveals alkalosis with a pH of 7.54. Will repeat ABG 5 AM and follow-up with CMP Treatment Review: Heme Problem: Anemia in the setting of hematemesis DDx: MCV 84 so may be normocytic versus anemia of chronic disease Diagnostic Test: Will transfuse the patient if hemoglobin less than 7. Treatment Plan: Will hold Xarelto due to the fact that patient is having hematemesis and was unable to protect airway. Will have goals of care discussion and shared decision making conversation with family in regards to continuing treatment for PE Treatment Review: Endo Problem: Type 2 diabetes DDx: Diagnostic Test: Treatment Plan: Resume the patient on sliding scale insulin Treatment Review: ID Problem: Stable, NAD DDx: Diagnostic Test: Treatment Plan: Treatment Review: DVT prophylaxis: Aspirin 81 and Xarelto being held due to complaints of hematemesis. Will resume SCDs GI prophylaxis: Protonix 80 twice daily Diet: N.p.o. except for meds Tinsley: N/A Lines: Peripheral IVs Drips: Fentanyl and propofol and low doses. Levophed to maintain MAP greater than 65 or systolic blood pressure greater than 90 Vent: RR 18, tidal volume 375, PEEP 5.0, FiO2 100% CODE STATUS: Full code. Recommend goals of care discussion with family and I informed them that it is unlikely that patient will have meaningful recovery given the nature of his encephalopathy for prolonged time and multiple embolic phenomenon noted on MRI Reason for hospitalization initially acute encephalopathy with suspicion for metabolic encephalopathy but later discovered to be embolic stroke with multiple emboli noted in multiple brain regions and postcardiac arrest care Plan of care discussed with supervising attending Dr. Micheal Nelson M.D. PGY-3
[2024-08-29 22:41] LABS: Lactate (Lactic Acid) 4.2 mMol/L (0.4-2.0)
[2024-08-29] MEDS: PANTOPRAZOLE/NS 80MG IV PREMIX 80 MG/100 ML BAG 400 MG IV (22:41)
[2024-08-29] MEDS: INSULIN GLARGINE (Lantus) 5 UNIT/0.05 ML (PER 5 UNITS) SC (22:45)
[2024-08-29 22:58] LABS: Alanine Aminotransferase 33 U/L (10-49); Albumin, Serum 3.1 gm/dL (3.4-4.8); Albumin/Globulin Ratio 0.9 (1.2-2.2); Alkaline Phosphatase 92 U/L (46-116); Anion Gap 17 (7-16); Aspartate Amino Transferase 48 U/L (0-34); BUN/Creatinine Ratio 21 Ratio (12-20); Bilirubin,Total 0.5 mg/dL (0.3-1.2); Blood Urea Nitrogen 21 mg/dL (9-23); Calcium 10.9 mg/dL (8.3-10.6); Calcium (Corrected) 11.6 mg/dL (8.5-10.1); Carbon Dioxide 31.6 mMol/L (20.0-31.0); Chloride 93 mMol/L (98-107); Estimated Creatinine Clearance 57.7 mL/min (>60); Globulin 3.6 gm/dL (2.3-3.5); Glucose 238 mg/dL (74-106); Magnesium 2.3 mg/dL (1.6-2.6); Osmolality,Calculated 294 (275-295); Phosphorous 4.9 mg/dL (2.4-5.1); Potassium 3.2 mMol/L (3.4-5.1); Sodium 142 mMol/L (136-145); Total Protein 6.7 gm/dL (5.7-8.2); Troponin I < 0.020 ng/mL (0.0-0.045); eGFR > 60 See Note
[2024-08-29 23:35] LABS: Ammonia 18 uMol/L (11-32)
[2024-08-30] VITALS (10 sets, daily range): BP systolic 88–113; BP diastolic 22–87; PULSE 51–151; RESP 12–117; O2SAT 82–100
[2024-08-30] MEDS: EPINEPHrine in NS 4 MG IVPB 4 MG/250 ML BAG 409.725 MG IV (01:02)
[2024-08-30 01:07] LABS: Reflex Lactate? Y
[2024-08-30 01:19] LABS: Base Excess 6 (-3-3); HCO3 28 mEq/L (20-26); O2 Saturation 101 % (91-98); PCO2 30 mmHg (32.0-48.0); PO2 193 mmHg (83-108); pH, Arterial 7.58 (7.35-7.45)
--- NOTE | 2024-08-30 01:25 | PC.NURSE ---
Dr. Nelson at bedside s/p code x3. talking to family about comfort care. Donor network called [facility] [phone], declined donation due to active colon cancer.
[2024-08-30 01:27] LABS: Inspired Oxygen, FIO2 100 %; Puncture Site Left Radial
[2024-08-30 01:28] LABS: Lactate (Lactic Acid) 6.4 mMol/L (0.4-2.0)
[2024-08-30 01:28] LABS: Allen Test Performed/OK
[2024-08-30 01:44] LABS: Alanine Aminotransferase 156 U/L (10-49); Albumin, Serum 2.9 gm/dL (3.4-4.8); Albumin/Globulin Ratio 0.8 (1.2-2.2); Alkaline Phosphatase 96 U/L (46-116); Anion Gap 18 (7-16); Aspartate Amino Transferase 228 U/L (0-34); BUN/Creatinine Ratio 18 Ratio (12-20); Bilirubin,Total 0.9 mg/dL (0.3-1.2); Blood Urea Nitrogen 25 mg/dL (9-23); Calcium 10.8 mg/dL (8.3-10.6); Calcium (Corrected) 11.7 mg/dL (8.5-10.1); Carbon Dioxide 29.3 mMol/L (20.0-31.0); Chloride 94 mMol/L (98-107); Creatinine (Component) 1.4 mg/dL (0.6-1.3); Estimated Creatinine Clearance 41.2 mL/min (>60); Globulin 3.5 gm/dL (2.3-3.5); Glucose 298 mg/dL (74-106); Osmolality,Calculated 296 (275-295); Potassium 3.7 mMol/L (3.4-5.1); Sodium 141 mMol/L (136-145); Total Protein 6.4 gm/dL (5.7-8.2); eGFR 56 See Note
[2024-08-30] MEDS: LORazepam 2 MG/ML VIAL 4 MG IVP (02:02)
[2024-08-30] MEDS: CALCIUM GLUCONATE 10% INJ 1 GM/10 ML VIAL IV (02:03)
--- NOTE | 2024-08-30 02:05 | PD.DPN ---
Documentation for date of: 08/30/24 Pronouncement Note Date and Time of Date of : 08/30/24 Time of : 02:00 PCOD Preliminary cause of : Cardiac arrest Additional Data Confirmation of : no pulse, no respirations, no heart sounds and pupils fixed and dilated Family: at bedside Attending/PCP notified?: Yes Attending physician: Jeanmarie Irving MD Was code activated?: No Autopsy requested?: No automobile insurance claim examiner notified?: No Organ bank notified?: No Advance directives: No
--- NOTE | 2024-08-30 02:07 | PD.DDS ---
Documentation for date of: 08/30/24 Summary Date and Time Date of admission: 08/26/24 17:50 Date of : 08/30/24 Time of : 02:00 Summary Details: Cardiac arrest Hospital Course: Mr. Garner is a 64-year-old male with past medical history of colon cancer with last chemotherapy being 1 week prior, type 2 diabetes, hypertension, history of pulmonary emboli on Xarelto, liver cirrhosis who was brought into [facility] from the cancer treatment center due to altered mentation. According to patient's family patient had been experiencing signs of encephalopathy for 1 week and upon initial presentation he was only answering questions appropriately for his name and birthdate. Upon initial presentation patient was found to have a systolic blood pressure in the 200s and neurology was consulted in regards to his encephalopathy. A CT head was done which was negative for signs of stroke or bleeding. The following day on August 27, 2024 patient was found to be alert and oriented x 3 and appears to have been back at his baseline. Later in the day he was evaluated by neurology which found that he again appeared to be altered and more history was obtained from patient's son at bedside who had informed the neurology team that patient had been experiencing hallucinations prior to coming to the hospital and had been having decreased p.o. intake with significant nausea and vomiting since his previous chemotherapy session 2 weeks prior. On August 28, 2024 patient appeared to exhibit signs clinically in regards to stroke with left eye deviation and left eye dilation and nonreactive to light. Concern was given for a cranial 3rd nerve palsy so patient underwent an MRI of the brain. A rapid response was called for the patient around 11 AM this morning due to generalized diffuse weakness and hypertension and tachycardia with a stroke alert being called due to NIHSS of 16. MRI for the patient revealed bilateral high parietal infarcts that were small in size and suspected to be embolic in source. Later in the day ICU was consulted in regards to inability to protect airway for the patient with low GCS. At bedside evaluation by the ICU team it was noted that he had a GCS of 10 and was able to protect his airways and was hemodynamically stable. Later in the evening around 9 PM floor team was consulted in regards for bedside evaluation due to the fact that patient had an episode of hematemesis and remained unresponsive. Upon bedside evaluation it was noted the patient had a GCS of 3 and pupils were nonreactive to light so decision was made to protect patient's airway with mechanical intubation. Patient was brought to the ICU for intubation and was successfully intubated under the care of emergency room physician but immediately went into respiratory arrest and CODE BLUE was initiated. Patient underwent chest compressions for a period of 4 minutes and 2 pushes of epinephrine with 2 pushes of bicarb ampules were given with successful ROSC obtained at 9:33 PM. Family was contacted after the initial cardiac arrest event and later in the evening they were able to be at patient's bedside. I gave a bedside update to family in regards to patient's earlier cardiac arrest and likely poor prognosis with multiple embolic events noted in multiple brain regions. At around 12:30 AM with family at bedside patient underwent cardiac arrest with V-fib and CODE BLUE was activated. During that patient received 2 pushes of epi, amp of bicarbonate, amiodarone 300 mg, calcium chloride, and a 200 J shock twice and ROSC was obtained. Later patient at 1246 again went into V-fib arrest and CODE BLUE was activated and after another shock and another push of epi ROSC was obtained. Spoke to family in between the code activations in regards to what was occurring and likelihood of grim survival. Bedside echo was done which revealed very minimal cardiac contractility and pulse was unable to be felt so a minute later patient underwent a third CODE BLUE event at 1:02 AM. Patient again received epinephrine along with chest compressions from the [place] device and ROSC was obtained after 1 push of epi. Following that patient was initiated on epinephrine drip and I spoke to family in regards to the potential of patient undergoing another CODE BLUE event. Goals of care discussion was about in regards to patient's poor prognosis from multiple cardiac arrest and multiple regions of infarct in the brain without any kind of neurological response so decision was made to transition patient to DNR status and transition the focus of his care to comfort measures. Family stated that they would not like to be at bedside during the process of transitioning to comfort which included getting fentanyl for pain and Ativan for anxiety along with discontinuation of chemical pressor support and compassionate extubation. After receiving fentanyl and Ativan patient was extubated and pressors were discontinued and at 2 AM patient comfortably and peacefully. Family was at bedside and our condolences and deeply sympathies were offered Patient's hospitalization course summarized above Qian Nelson M.D. PGY-3 Additional Data Confirmation of as documented by pronouncing clinician: no pulse, no respirations, no heart sounds and pupils fixed and dilated Family: at bedside Attending/PCP notified?: Yes Attending physician: Jeanmarie Irving MD Was code activated?: Yes (For CODE BLUE events and then comfort care) Autopsy requested?: No electric powerline examiner notified?: No Organ bank notified?: No Advance directives: No Hospice patient?: No Visit Providers Provider Primary care physician: Betsy Hodges PA-C Consults: 08/26/24 17:20 Consult to Gastroenterology Stat Comment: Consulting Provider: Rudy Louie 08/26/24 17:59 Referral Speech Therapy Stat Comment: 08/26/24 18:26 Referral Physical Therapy Stat Comment: Physician Instructions: 08/26/24 23:42 [facility] Referral - Knowledge Deficit Routine Comment: Positive screening for knowledge deficit needs. 08/29/24 12:15 Referral Physical Therapy Stat Comment: Physician Instructions: Referral Speech Therapy Stat Comment: Discharge Plan Plan Patient Disposition: Xfer Skilled Nsg Fac (SNF) Patient condition on transfer: Stable Care Plan Goals: Follow up with cancer treatment ceneter in regards to your colon cancer PCP to discuss goals of care with the patient. follow up with primary care physician within 1 week of discharge Should any symptoms recur or worsen patient is instructed to return to the ED. Prescriptions/Referrals Prescriptions/Med Rec: Continued metformin 1,000 mg tablet 1,000 mg PO BID Edarbi 40 mg tablet 40 mg PO BID Tradjenta 5 mg tablet 5 mg PO DAILY docusate sodium [Colace] 100 mg capsule 100 mg PO BID Qty: 40 0RF hydrocodone-acetaminophen 5-325 mg tablet 1 tab PO Q6H MDD 4 PRN (Reason: pain (scale score 7-10)) Qty: 10 0RF ibuprofen 600 mg tablet 600 mg PO Q8H PRN (Reason: pain (scale score 4-6)) Qty: 15 0RF acetaminophen [Pain Relief ES (acetaminophen)] 500 mg tablet 500 mg PO Q6H PRN (Reason: pain) Qty: 60 0RF Xarelto 20 mg tablet 20 mg PO Q24H Linzess 72 mcg PO DAILY Rx Instructions: take 30min before first meal potassium chloride 20 mEq tablet,ER particles/crystals 20 meq PO DAILY ondansetron 8 mg tablet,disintegrating 8 mg PO Q8H PRN (Reason: nausea and vomiting) Discontinued Edarbi 40 mg tablet 40 mg PO BID Tradjenta 5 mg tablet 5 mg PO QDAY Referrals: Betsy Hodges PA-C [Primary Care Provider] - Patient/Caregiver Discharge Instructions Education Materials: Discharge Instructions for Stroke Print Language: Kazakh Stand Alone Forms: Brittany Award Info., Patient Portal Info Letter
[2024-08-30 04:06] LABS: Reflex Lactate? Y
== END 2024-08-30 02:00 | disposition expired | DRG 45 ==
LOC: SERX 17:29 → SERHOLD 19:15 → S3SX 21:22 → S2SX 08-30 05:40 → S3SX 09-04 07:28
PROVIDERS: Registered Nurse General Practice; Student in an Organized Health Care Education/Training Program; Admitting Provider Internal Medicine; Emergency Provider Emergency Medicine; PCP Physician Assistant; Visit Provider Internal Medicine
DX: I63.49 Cerebral infarction due to embolism of other cerebral artery (principal); G93.41 Metabolic encephalopathy; I10 Essential (primary) hypertension; E11.9 Type 2 diabetes mellitus without complications; I16.0 Hypertensive urgency; D64.9 Anemia, unspecified; E78.5 Hyperlipidemia, unspecified; C18.9 Malignant neoplasm of colon, unspecified; E87.6 Hypokalemia; K74.60 Unspecified cirrhosis of liver; I49.01 Ventricular fibrillation; I26.99 Other pulmonary embolism without acute cor pulmonale; F41.9 Anxiety disorder, unspecified; H49.00 Third [oculomotor] nerve palsy, unspecified eye; E87.3 Alkalosis; R57.9 Shock, unspecified; I46.8 Cardiac arrest due to other underlying condition; K92.0 Hematemesis; R29.716 NIHSS score 16; Z86.711 Personal history of pulmonary embolism; Z90.49 Acquired absence of other specified parts of digestive tract; Z79.84 Long term (current) use of oral hypoglycemic drugs; Z79.01 Long term (current) use of anticoagulants; Z79.899 Other long term (current) drug therapy; Z92.21 Personal history of antineoplastic chemotherapy
CPT/HCPCS: 36415; 36600; 70450; 70496; 70498; 70544; 70551; 71045; 80053; 80069; 80307; 81001; 82140; 82607; 82746; 82803; 83036; 83605; 83615; 83690; 83735; 83880; 84100; 84145; 84443; 84484; 85014; 85018; 85025; 85610; 85730; 86780; 87040; 87086; 87205; 92526; 92610; 92950; 93005; 93225; 93306; 94002; 94003; 96365; 96375; 97161; 97162; 99285; A4649; J0171; J0360; J0612; J1815; J2060; J2704; J3010; J3475; J3480; J3490; J7040; Q9967; A9270